=== PATIENT | male | born 1955 | race Two or more races ===

== ENCOUNTER 2025-04-01 15:44 | Inpatient (IN) | payer MEDICAID, SELFPAY ==
[2025-04-01] VITALS (10 sets, daily range): BP systolic 117–157; BP diastolic 67–85; PULSE 70–84; RESP 14–30; TEMP 36.5–37; O2SAT 85–99
--- NOTE | 2025-04-01 16:00 | PC.NURSE ---
Pt BIBA [facility] due to lethargy and shortness of breath. SVR stated that after dialysis today pt started complaining of SOB and was lethargic. Pt told me that he did not sleep last night due to the bed being uncomfortable and that he has back pain because of that as well. Pt is 94% on RA but drops to high 80s while asleep, so he has been placed on 2 L NC (does not use O2 otherwise)
--- NOTE | 2025-04-01 16:54 | PD.EDSOB ---
ED SOB =RME/HPI General Chief Complaint: Shortness of Breath/Dyspnea Stated Complaint: SOB Arrival date/time: 04/01/25 15:44 Limitations: no limitations RME / HPI RME / HPI Narrative: 69 year old male presents to the ED BIBA from home for evaluation of shortness of breath after completing his dialysis today. Additionally complains of pain to his back. No other associated symptoms reported. Denies fevers, chills, chest pain, cough, abdominal pain, n/v/d. Related Data Home Medications ?Medication ?Instructions ?Recorded ?Confirmed acetaminophen 500 mg tablet 500 mg PO Q6H PRN fever or pain 04/01/25 04/02/25 apixaban 5 mg tablet (Eliquis) 5 mg PO BID atrial fibrilation 04/01/25 04/02/25 atorvastatin 20 mg tablet 20 mg PO .qHS hyperlipidemia 04/01/25 04/02/25 calcium acetate(phosphat bind) 667 667 mg PO BID 04/01/25 04/02/25 mg capsule carvedilol 6.25 mg tablet 6.25 mg PO Q12H Hypertension 04/01/25 04/02/25 cyclobenzaprine 10 mg tablet 10 mg PO Q8H PRN muscle spasm 04/01/25 04/02/25 diclofenac sodium 1 % topical gel 2.25 inch topical Q8H PRN pain 04/01/25 04/02/25 gabapentin 300 mg capsule 300 mg PO BID Neuropathy 04/01/25 04/02/25 ropinirole 0.5 mg tablet 0.5 mg PO QDAY restless leg 04/01/25 04/02/25 syndrome sevelamer carbonate 800 mg tablet 800 mg PO TIDWMEAL Phosporus Binder 04/01/25 04/02/25 sodium bicarbonate 650 mg tablet 650 mg PO BID GERD 04/01/25 04/02/25 amiodarone 200 mg tablet 200 mg PO BID atrial fibrilation 04/02/25 04/02/25 clonazepam 2 mg tablet (Klonopin) 2 mg PO Q8H PRN Axiety 04/02/25 04/02/25 diltiazem HCl 30 mg tablet 30 mg PO Q6H Hypertension 04/02/25 04/02/25 (Cardizem) escitalopram oxalate 10 mg tablet 10 mg PO QDAY Agitation 04/02/25 04/02/25 (Lexapro) lisinopril 5 mg tablet 5 mg PO QDAY Hypertension 04/02/25 04/02/25 rifampin 300 mg capsule 300 mg PO BID bacteremia 04/02/25 04/02/25 Allergies Allergy/AdvReac Type Severity Reaction Status Date / Time ketorolac Allergy Verified 04/01/25 16:17 Review of Systems Review of Systems Systems Reviewed: All systems reviewed, normal except as documented Past Medical History Past Medical History CARDIAC: Positive Cardiac Disorders, Atrial Fibrillation (Paroxysmal), Congestive Heart Failure and Hypertension GENITOURINARY: Positive Chronic Kidney Disease, Renal Disease and Dialysis ED Exam General Limitations: Present no limitations General appearance: Present alert and in no apparent distress Head Head exam: Present atraumatic Eye Eye exam: Present normal appearance, PERRL and EOMI ENT ENT exam: Present normal exam, normal oropharynx and mucous membranes moist Neck Neck exam: Present normal inspection, full ROM and trachea midline Chest Chest inspection: Present symmetric chest wall rise and other (dialysis catheter right upper chest that appears recent, has ecchymosis around it) Respiratory Respiratory exam: Present normal lung sounds bilaterally Cardiovascular Cardiovascular exam: Present regular rate, normal rhythm and normal heart sounds Abdominal Exam Abdominal exam: Present soft and normal bowel sounds Extremities Exam Extremities exam: Present other (Left upper extremity contracture, hypertrophic nails) Back Exam Back exam: Present normal inspection and full ROM Neurological Exam Neurological exam: Present alert, oriented X3 and CN II-XII intact Psychiatric Psychiatric exam: Present normal affect and normal mood Skin Skin exam: Present warm, dry, intact and normal color Course Quality Measures none Orders Category Date Time Status Admit to Inpatient Status Routine Admission 04/01/25 23:09 Active Patient Condition Routine Admission 04/01/25 23:09 Ordered Furnace Builder NOW Care 04/01/25 17:36 Active Continuous Pulse Oximetry NOW Care 04/01/25 17:36 Completed EKG (ED ONLY) *Do not use* NOW Care 04/01/25 17:36 Completed Flu & Pneumonia Vaccine Screen ONCE Care 04/01/25 23:08 Active Insert IV NOW Care 04/01/25 17:36 Active NPO NOW Care 04/01/25 23:11 Active Notify provider NEEDED Care 04/01/25 23:09 Active Sequential Compression Device QSHIFT Care 04/01/25 23:[address] chest wo con Stat Exams 04/01/25 21:[address] head/brain wo con Stat Exams 04/01/25 20:37 Completed EKG (ED Only) Stat Exams 04/01/25 17:36 Draft XR chest 1V portable Stat Exams 04/01/25 17:36 Completed ABG [Arterial Blood Gas] Stat Lab 04/01/25 23:33 Completed Alcohol, Urine Routine Lab 04/01/25 22:36 Ordered BNP [B-Type Natriuretic Peptide] Stat Lab 04/01/25 18:20 Completed CBC AM DRAW Lab 04/02/25 05:20 Completed CBC AM DRAW Lab 04/03/25 05:12 Completed CBC AM DRAW Lab 04/04/25 05:57 Completed CBC Stat Lab 04/01/25 18:20 Completed Comprehensive Metabolic Panel AM DRAW Lab 04/02/25 05:20 Completed Comprehensive Metabolic Panel AM DRAW Lab 04/03/25 05:12 Completed Comprehensive Metabolic Panel AM DRAW Lab 04/04/25 05:57 Completed Comprehensive Metabolic Panel Stat Lab 04/01/25 18:20 Completed Drug Screen,Urine Routine Lab 04/01/25 22:36 Ordered Lipid Panel AM DRAW Lab 04/02/25 05:20 Completed Magnesium AM DRAW Lab 04/02/25 05:20 Completed Partial Thromboplastin Time Stat Lab 04/01/25 18:20 Completed Phosphorous AM DRAW Lab 04/02/25 05:20 Completed Prothrombin Time with INR Stat Lab 04/01/25 18:20 Completed Troponin I Stat Lab 04/01/25 18:20 Completed Venous Blood Gas Stat Lab 04/01/25 18:20 Completed ALBUTEROL RT 3ml [Proventil Rt 3ml] Med 04/01/25 17:37 Discontinued 2.5 mg INH X1 ONE Acetaminophen Tab [Tylenol Tab] Med 04/01/25 23:08 Discontinued 1,000 mg PO Q6H PRN Azithromycin Inj [Zithromax Inj] 500 mg Med 04/01/25 20:24 Discontinued Sodium Chloride 0.9% 250 ml [Ns] 250 ml IV X1 Famotidine Inj [Pepcid Inj] Med 04/01/25 17:37 Discontinued 20 mg IVP X1 ONE HYDROcodone*/APAP 5/325 [[place] 5/325] Med 04/01/25 21:27 Discontinued 1 tab PO X1 ONE Morphine* Inj Med 04/01/25 17:37 Discontinued 4 mg IVP X1 ONE Ondansetron Inj [Zofran Inj] Med 04/01/25 23:08 Active 4 mg IVP Q6H PRN Ondansetron Inj [Zofran Inj] Med 04/01/25 17:37 Discontinued 4 mg IVP X1 ONE Sodium Chloride 0.9% 1000 ml [Ns] 1,000 ml Med 04/01/25 17:36 Discontinued IV 50 mls/hr cefTRIAXone/D5w 1gm IV premix [Rocephin/D5w 1gm IV Med 04/01/25 20:24 Discontinued premix] 1 gm in 50 ml IV X1 Code Status Routine Oth 04/01/25 23:08 Ordered Oxygen Delivery NOW RT 04/01/25 17:36 Completed Vital Signs Vital signs: Vital Signs Temperature 97.8 F 04/01/25 15:45 Shortness of Breath / Dyspnea MDM Narrative MDM Narrative:: Jacquelyn Hawthorne am scribing for and in the presence of Dr. Lam. 1800: Patient signed out to Dr. Ordoñez pending work up and final disposition. Patient data External records reviewed:: EMS form Clinical information provided by:: patient and EMS Social determinants that could affect healthcare access:: none Patient has the following chronic illnesses:: ESRD on HD, HTN, AFIB, CHF How is presenting disease/condition affected by chronic disease/condition?: exacerbated by Evaluation data The following diagnostics were reviewed and interpreted by me:: lab results and radiology exam(s) Lab and/or radiology exams considered but not ordered:: None Interpretation Summary: Ordering Physician: Jose Lam MD Date of Service: 04/01/25 Procedure(s): XR chest 1V portable Accession Number(s): [id number] cc: Jose Lam MD; Adolph Mcrae MD; NO PRIMARY/FAMILY,PHYSICIAN~ EXAMINATION: AP chest single view TECHNIQUE: AP portable upright chest single view Date and time: April 01, 2025, 1750 hours INDICATIONS: Cough and chest pain shortness of breath today. FINDINGS: Extensive right lung pneumonia Mild associated heart failure with enlarged cardiac contour and pulmonary vascular congestion Right internal jugular dialysis catheter tip right atrium IMPRESSION: Extensive right lung pneumonia Mild associated heart failure Dictated By: Adolph Mcrae MD Signed By: <Electronically signed by Adolph Mcrae MD in OV> 04/01/25 1851 Medications / Prescriptions Medications or Prescriptions considered but not ordered:: None Medication administrations:: Medication Administration History Acetaminophen (Acetaminophen 500 Mg Tablet) 1,000 mg PO Q6H PRN PRN Reason: Fever >100.3, pain 1-3 Stop: 05/01/25 23:07 Hydrocodone Bitart/Acetaminophen (Hydrocodone/Apap 5/325 Tablet) 1 tab PO Q6HR PRN PRN Reason: Pain 4-8 Stop: 04/07/25 19:34 Last Admin: 04/04/25 12:52 Dose: 1 tab Documented By: Admin: 04/04/25 05:38 Dose: 1 tab Documented By: Admin: 04/03/25 20:06 Dose: 1 tab Documented By: Admin: 04/03/25 08:55 Dose: 1 tab Documented By: Admin: 04/03/25 02:24 Dose: 1 tab Documented By: Admin: 04/02/25 20:24 Dose: 1 tab Documented By: MERARI Albuterol/Ipratropium (Albuterol/Ipratropium (Duoneb) Rt Bianka 3 Ml Nebu) 3 ml INH Q4HRRT REEMA Stop: 05/03/25 17:56 Last Admin: 04/04/25 14:51 Dose: 3 ml Documented By: Admin: 04/04/25 10:22 Dose: Not Given Documented By: MARLENY Non-Admin Reason: Not In Room Admin: 04/04/25 06:45 Dose: 3 ml Documented By: Admin: 04/04/25 02:46 Dose: 3 ml Documented By: Admin: 04/04/25 00:37 Dose: 3 ml Documented By: Admin: 04/03/25 18:08 Dose: Not Given Documented By: EMR Non-Admin Reason: Duplicate Medication on eMAR Admin: 04/03/25 18:07 Dose: 3 ml Documented By: VALE Amiodarone HCl (Amiodarone Hcl 200 Mg Tablet) 200 mg PO BID REEMA Stop: 05/02/25 08:59 Last Admin: 04/04/25 12:53 Dose: 200 mg Documented By: Admin: 04/03/25 20:15 Dose: 200 mg Documented By: Admin: 04/03/25 08:56 Dose: 200 mg Documented By: Admin: 04/02/25 20:24 Dose: 200 mg Documented By: Admin: 04/02/25 08:47 Dose: 200 mg Documented By: DENNY Apixaban (Apixaban 2.5 Mg Tablet) 5 mg PO DAILY REEMA Stop: 05/02/25 08:59 Last Admin: 04/04/25 12:52 Dose: 5 mg Documented By: FÉLIX Comments: pt at dialysis Admin: 04/03/25 08:57 Dose: 5 mg Documented By: Admin: 04/02/25 08:48 Dose: 5 mg Documented By: DENNY Atorvastatin Calcium (Atorvastatin Calcium 20 Mg Tablet) 20 mg PO HS REEMA Stop: 05/02/25 20:59 Last Admin: 04/03/25 20:05 Dose: 20 mg Documented By: Admin: 04/02/25 20:24 Dose: 20 mg Documented By: MERARI Carvedilol (Carvedilol 3.125 Mg Tablet) 6.25 mg PO BIDWM REEMA Stop: 05/02/25 08:59 Last Admin: 04/04/25 14:11 Dose: Not Given Documented By: FÉLIX Non-Admin Reason: pt in dialysis, x1 order pending Diltiazem HCl (Diltiazem 30 Mg Tablet) 30 mg PO Q6H REEMA Stop: 05/04/25 15:14 Last Admin: 04/04/25 15:20 Dose: 30 mg Documented By: FÉLIX Escitalopram Oxalate (Escitalopram Oxalate 10 Mg Tablet) 10 mg PO QDAY REEMA Stop: 05/02/25 08:59 Last Admin: 04/04/25 12:54 Dose: 10 mg Documented By: Admin: 04/03/25 08:57 Dose: 10 mg Documented By: Admin: 04/02/25 08:48 Dose: 10 mg Documented By: DENNY Heparin Sodium (Porcine) (Heparin Sod Inj 1000 Unit/Ml Vial 10 Ml) 4,300 unit INDWELLCAT X1 PRN PRN Reason: DIALYSIS Stop: 04/18/25 11:57 Last Admin: 04/04/25 12:00 Dose: 4,300 unit Documented By: RAYMUNDO Co-signed By: VIVIAN Hydralazine HCl (Hydralazine Inj 20 Mg/Ml Vial) 10 mg IVP Q6H PRN PRN Reason: hypertention Stop: 05/04/25 15:14 Hydroxyzine HCl (Hydroxyzine Hcl 25 Mg Tablet) 25 mg PO Q6HR PRN PRN Reason: ANXIETY Stop: 05/02/25 10:09 Last Admin: 04/04/25 04:53 Dose: 25 mg Documented By: Admin: 04/03/25 17:24 Dose: 25 mg Documented By: Admin: 04/03/25 07:02 Dose: 25 mg Documented By: Admin: 04/02/25 19:24 Dose: 25 mg Documented By: Admin: 04/02/25 11:01 Dose: 25 mg Documented By: DENNY Azithromycin 500 mg/ Sodium (Chloride) 250 mls @ 250 mls/hr IV QDAY [facility] Stop: 04/09/25 08:59 Last Admin: 04/04/25 12:54 Dose: 250 mls/hr Documented By: Infusion: 04/03/25 09:57 Dose: Infused Documented By: Admin: 04/03/25 08:57 Dose: 250 mls/hr Documented By: Infusion: 04/02/25 15:00 Dose: Infused Documented By: Admin: 04/02/25 14:00 Dose: 250 mls/hr Documented By: DENNY Ceftriaxone Sodium/Dextrose (Rocephin/D5w 1gm Iv Premix) 1 gm in 50 mls @ 100 mls/hr IV QDAY [facility] Stop: 04/09/25 08:59 Last Admin: 04/04/25 12:49 Dose: 100 mls/hr Documented By: Infusion: 04/03/25 09:27 Dose: Infused Documented By: Admin: 04/03/25 08:57 Dose: 100 mls/hr Documented By: Infusion: 04/02/25 09:19 Dose: Infused Documented By: Admin: 04/02/25 08:49 Dose: 100 mls/hr Documented By: DENNY Lisinopril (Lisinopril 2.5 Mg Tablet) 5 mg PO QDAY [facility] Stop: 05/05/25 08:59 Ondansetron HCl (Ondansetron Inj 2 Mg/Ml Inj 2 Ml) 4 mg IVP Q6H PRN; Protocol PRN Reason: NAUSEA OR VOMITING Stop: 05/01/25 23:07 Rifampin (Rifampin 300 Mg Capsule) 300 mg PO BID [facility] Stop: 05/02/25 08:59 Last Admin: 04/04/25 12:52 Dose: 300 mg Documented By: Admin: 04/03/25 20:05 Dose: 300 mg Documented By: Admin: 04/03/25 08:55 Dose: 300 mg Documented By: Admin: 04/02/25 20:25 Dose: 300 mg Documented By: Admin: 04/02/25 08:47 Dose: 300 mg Documented By: DENNY Discontinued Medications Acetaminophen (Acetaminophen 325 Mg Tablet) 1,000 mg PO Q6H PRN PRN Reason: Fever >99.9 Stop: 05/01/25 23:07 Acetaminophen (Acetaminophen 325 Mg Tablet) 1,000 mg PO Q6H PRN PRN Reason: Fever >100.3, pain 1-3 Stop: 05/01/25 23:07 Hydrocodone Bitart/Acetaminophen (Hydrocodone/Apap 5/325 Tablet) 1 tab PO X1 ONE Stop: 04/01/25 21:28 Last Admin: 04/01/25 21:36 Dose: 1 tab Documented By: SAUL Albuterol (Albuterol Rt 2.5 Mg/3 Ml Nebu) 2.5 mg INH X1 ONE Stop: 04/01/25 17:38 Last Admin: 04/01/25 19:15 Dose: 2.5 mg Documented By: JAQUELIN Albuterol/Ipratropium (Albuterol/Ipratropium (Duoneb) Rt Bianka 3 Ml Nebu) 3 ml INH Q4HRRT [facility] Stop: 05/03/25 18:59 Carvedilol (Carvedilol 3.125 Mg Tablet) 6.25 mg PO BID [facility] Stop: 05/02/25 08:59 Last Admin: 04/03/25 20:06 Dose: 6.25 mg Documented By: Admin: 04/03/25 08:55 Dose: 6.25 mg Documented By: Admin: 04/02/25 20:24 Dose: 6.25 mg Documented By: Admin: 04/02/25 08:48 Dose: 6.25 mg Documented By: DENNY Carvedilol (Carvedilol 3.125 Mg Tablet) 6.25 mg PO X1 ONE Stop: 04/04/25 14:03 Last Admin: 04/04/25 15:15 Dose: 6.25 mg Documented By: FÉLIX Epoetin Ravi (Epoetin Ravi-Epbx Inj 10,000 Unit/Ml Vial (Esrd)) 10,000 unit SC X1 ONE Stop: 04/04/25 11:16 Last Admin: 04/04/25 11:03 Dose: 10,000 unit Documented By: MM Famotidine (Famotidine Inj 10 Mg/Ml Vial 2 Ml) 20 mg IVP X1 ONE Stop: 04/01/25 17:38 Last Admin: 04/01/25 18:30 Dose: 20 mg Documented By: CS Sodium Chloride (Ns) 1,000 mls @ 50 mls/hr IV .Q20H ONE Stop: 04/02/25 13:35 Last Admin: 04/01/25 18:32 Dose: 50 mls/hr Documented By: CS Ceftriaxone Sodium/Dextrose (Rocephin/D5w 1gm Iv Premix) 1 gm in 50 mls @ 100 mls/hr IV X1 ONE Stop: 04/01/25 20:53 Last Infusion: 04/01/25 21:17 Dose: Infused Documented By: Admin: 04/01/25 20:47 Dose: 100 mls/hr Documented By: DT Azithromycin 500 mg/ Sodium (Chloride) 250 mls @ 250 mls/hr IV X1 ONE Stop: 04/01/25 21:23 Last Infusion: 04/01/25 22:38 Dose: Infused Documented By: Admin: 04/01/25 21:38 Dose: 250 mls/hr Documented By: DT Lorazepam (Lorazepam 0.5 Mg Tablet) 0.5 mg PO X1 ONE Stop: 04/04/25 10:22 Last Admin: 04/04/25 10:26 Dose: 0.5 mg Documented By: RAYMUNDO Morphine Sulfate (Morphine Sulf Inj 4 Mg/Ml Vial) 4 mg IVP X1 ONE Stop: 04/01/25 17:38 Last Admin: 04/01/25 18:31 Dose: 4 mg Documented By: KAYLA Ondansetron HCl (Ondansetron Inj 2 Mg/Ml Inj 2 Ml) 4 mg IVP X1 ONE; Protocol Stop: 04/01/25 17:38 Last Admin: 04/01/25 18:31 Dose: 4 mg Documented By: KAYLA Sevelamer Carbonate (Sevelamer Carbonate 800 Mg Tablet) 800 mg PO TIDWM REEMA Stop: 05/02/25 07:59 See above Consultations Consultation(s) initiated? (list below): No Diagnosis Shortness of Breath Differential Diagnosis: acute exacerbation of chronic obstructive airways disease, congestive heart failure, community acquired pneumonia and asthma with exacerbation Most likely diagnosis given after review of the tests above:: Shortness of breath Admission Indicated Admission indicated?: not indicated Admission Request Was there a request for admission?: No Disposition Plan Disposition Plan: other (specify) (Signed out pending final dispo) Discharge Plan Plan Patient Disposition: Admit Acute Care w/in Hospital Problem List Clinical Impression: Community acquired pneumonia
--- NOTE | 2025-04-01 16:55 | PC.NURSE ---
dr. granados in to see pt
--- NOTE | 2025-04-01 17:36 | XR_ITS ---
EXAMINATION: AP chest single view TECHNIQUE: AP portable upright chest single view Date and time: April 01, 2025, 1750 hours INDICATIONS: Cough and chest pain shortness of breath today. FINDINGS: Extensive right lung pneumonia Mild associated heart failure with enlarged cardiac contour and pulmonary vascular congestion Right internal jugular dialysis catheter tip right atrium IMPRESSION: Extensive right lung pneumonia Mild associated heart failure
--- NOTE | 2025-04-01 17:36 | EKG_ITS ---
[facility] Test Date: 2025-04-01 Pat Name: ARI NAVARRO Department: Room: - Gender: Male Manager Ethics: : 1955 Requested By: Jose Mark Order Number: [id number] Reading MD: Jose Mark Measurements Intervals [place] Rate: 69 P: 87 [place]: 164 QRS: 74 QRSD: 89 T: 79 QT: 451 QTc: 484 Interpretive Statements SINUS RHYTHM PROLONGED QT INTERVAL No previous ECG available for comparison /store/S0/[id number]/ecg/[id number].pdf
--- NOTE | 2025-04-01 18:17 | EDNOTE_ITS ---
Emergency Room Addendum Addendum Narrative: 1800: Care assumed from Dr. Lam (emergency physician). Past medical, surgical, social and family history reviewed. Vitals and home medications reviewed. Results and treatment plan discussed. I will assume the care of the patient at this time and will follow the patient, pending labs. The following addendum documentation note is intended to reflect any pending information, findings, or radiology results not included in the patient?s initial chart by the previous shift scribe. RADIOLOGY Chest X-Ray: FINDINGS: Extensive right lung pneumonia Mild associated heart failure with enlarged cardiac contour and pulmonary vascular congestion Right internal jugular dialysis catheter tip right atrium IMPRESSION: Extensive right lung pneumonia Mild associated heart failure 20:34 - Assumed care of this debilitated patient with Hx of A Fib, CHF, and HTN referred from dialysis due to shortness of breath after completion of dialysis earlier today. Denies any recent productive cough, fever, or chills. O2 saturation normal on room air, although patient found to desaturate when sle eping suggesting possible NBA. CXR demonstrates extensive right sided PNA, for which he was treated with dual ABX. No signs of sepsis. Will contact hospitalist for possible admission. Final diagnoses include pneumonia, hypoxia, ? NBA. 20:53 - Discussed with resident physician for admission. Reviewed the patient?s HPI, PMHx, lab and/or radiology results. Discussed treatment plan. Will consult an admission to the hospitalist.
[2025-04-01 18:30] LABS: Base Excess, Venous 9 (-3-3); O2 Saturation, Venous 56 % (96-97); PCO2, Venous 48 mmHg (36-56); PO2, Venous 28 mmHg (15-58); pH, Venous 7.46 (7.33-7.66)
[2025-04-01] MEDS: FAMOTIDINE INJ 10 MG/ML VIAL 2 ML 20 MG IVP (18:30)
[2025-04-01 18:31] LABS: Basophils # (Auto) 0.1 Thou/mm3 (0.0-0.2); Basophils % (Auto) 1 % (0-2.5); Eosinophils # (Auto) 0.3 Thou/mm3 (0.0-0.5); Eosinophils % (Auto) 5 % (0-10); Hematocrit 28.2 % (41.0-53.0); Hemoglobin 9.1 g/dL (13.5-16.0); Immature Granulocytes Auto 0.03 Thou/mm3 (0.00-0.00); Lymphocytes # (Auto) 1.0 Thou/mm3 (1.0-4.8); Lymphocytes % (Auto) 17 % (10-50); Mean Corpuscular HGB Conc 32.3 g/dl (31.0-37.0); Mean Corpuscular Hemoglobin 33.0 pg (25.0-35.0); Mean Corpuscular Volume 102 fL (80-100); Monocytes # (Auto) 0.7 Thou/mm3 (0.0-0.8); Monocytes % (Auto) 13 % (0-12); Neutrophils # (Auto) 3.8 Thou/mm3 (1.8-7.7); Neutrophils % (Auto) 65 % (37-80); Nucleated Red Blood Cell # 0.00 Thou/mm3 (0.00-0.00); Nucleated Red Blood Cell % 0 /100 WBC (0); Platelet Count 141 Thou/mm3 (140-440); RDW Standard Deviation 61.1 fL (35.1-43.9); Red Blood Count 2.76 Miln/mm3 (4.50-5.90); White Blood Count 5.8 Thou/mm3 (3.8-10.6)
[2025-04-01] MEDS: ONDANSETRON INJ 2 MG/ML INJ 2 ML 4 MG IVP (18:31)
[2025-04-01] MEDS: MORPHINE SULF INJ 4 MG/ML VIAL IVP (18:31)
[2025-04-01] MEDS: SODIUM CHLORIDE 0.9% 1000 ML 1,000 ML 50 ML IV (18:32)
[2025-04-01 18:51] LABS: B-Type Natriuretic Peptide 432 pg/mL (0-100); INR 1.2 (0.9-1.3); Partial Thromboplastin Time 31.9 Seconds (22.0-36.0); Prothrombin Time 12.4 Seconds (9.0-12.2)
[2025-04-01 19:04] LABS: Alanine Aminotransferase < 7 U/L (10-49); Albumin, Serum 3.4 gm/dL (3.4-4.8); Albumin/Globulin Ratio 1.1 (1.2-2.2); Alkaline Phosphatase 57 U/L (46-116); Anion Gap 12 (7-16); Aspartate Amino Transferase 39 U/L (0-34); BUN/Creatinine Ratio 6 Ratio (12-20); Bilirubin,Total 0.4 mg/dL (0.3-1.2); Blood Urea Nitrogen 21 mg/dL (9-23); Calcium 8.0 mg/dL (8.3-10.6); Calcium (Corrected) 8.5 mg/dL (8.5-10.1); Carbon Dioxide 31.2 mMol/L (20.0-31.0); Chloride 96 mMol/L (98-107); Creatinine (Component) 3.8 mg/dL (0.6-1.3); Globulin 3.2 gm/dL (2.3-3.5); Glucose 86 mg/dL (74-106); Osmolality,Calculated 279 (275-295); Potassium 3.6 mMol/L (3.4-5.1); Sodium 139 mMol/L (136-145); Total Protein 6.6 gm/dL (5.7-8.2); Troponin I 0.028 ng/mL (0.0-0.045); eGFR 16 See Note
[2025-04-01] MEDS: ALBUTEROL RT 2.5 MG/3 ML NEBU INH (19:15)
--- NOTE | 2025-04-01 19:30 | PC.NURSE ---
THIS RN NOTIFIED PROVIDER YASSINE PT LETHARGIC WITH A FINGER GLUCOSE OF 83. PER PROVIDER I WILL GO IN AND ASSESS HIM. . NO ORDERS RECIEVED.
--- NOTE | 2025-04-01 20:24 | PC.NURSE ---
THIS RN VERIFIED WITH PROVIDER PRIOR TO STARTING IV ANTIBIOTICS IF PATIENT REQ BLOOD CULTURES. PER PROVIDER NO HE DOES NOT. PATIENT IS NOT SEPTIC WE DO NOT NEED CULTURES. .
--- NOTE | 2025-04-01 20:37 | XR_ITS ---
Examination: CT brain head without contrast. 2-D sagittal coronal reconstructions Date and time of exam: April 01, 2025, 2100 hours INDICATIONS: Altered mental status today CTDI: vol (mGy): 51.6 DLP: (mGycm): 1106 Technique: Multiple CT axial sections of the brain have been obtained, 5 mm slice thickness. Contrast has not been administered. 2-D sagittal, coronal reconstructions have been obtained Low dose protocols were performed. One or more of the following dose reduction techniques were used; automated exposure control, adjustment of the mA and/or KV according to patient size, use of iterative reconstruction technique. Findings: No significant ventricular enlargement. Intra-axial or extra-axial hemorrhage density is not seen. No mass effect or midline shift Basal cisterns are not remarkable. Fourth ventricle is midline. Cranial vault intact. Impression: Negative for acute hemorrhage, mass effect or midline shift If symptoms persist, consider brain MRI without contrast follow-up
[2025-04-01] MEDS: cefTRIAXone/D5w 1gm IV premix 1 GM/50 ML BAG IV (20:47)
--- NOTE | 2025-04-01 21:28 | XR_ITS ---
Examination: CT chest, without intravenous contrast. Sagittal and coronal 2-D reconstructions. Exam date and time: April 01, 2025, 9:48 p.m. INDICATIONS: Cough and congestion today CTDI:vol (mGy) 19.5 DLP: (mGycm) 846 Technique: Multiple 3.0 mm axial sections of the chest to been obtained. Bone and lung density settings are obtained. Sagittal and coronal 2-D reconstructions have been obtained. Low dose protocols were performed. One or more of the following dose reduction techniques were used; automated exposure control, adjustment of the mA and/or KV according to patient size, use of iterative reconstruction technique. Findings: Thoracic aortic calcification no aneurysmal dilatation Moderate enlargement cardiac contour with heavy left anterior descending coronary artery calcification Prominent vascular congestion dense opacity in the right upper lobe most consistent with pneumonia Moderate right mild left pleural fluid Significant pneumonia right base Distended gallbladder with gallbladder sludge versus small stones No pancreatic mass Liver lesion Bilateral small renal calcifications which may be arterial IMPRESSION: Dense opacity in the right upper lobe most consistent with pneumonic consolidation Right base pneumonia Mild heart failure Recommended by the biliary sonography to assess distended gallbladder and confirmed gallstones
[2025-04-01] MEDS: HYDROcodone/APAP 5/325 TABLET 1 TAB PO (21:36)
[2025-04-01] MEDS: AZITHROMYCIN INJ 500 MG in SODIUM CHLORIDE 0.9% 250 ML 250 ML 250 MG IV (21:38)
--- NOTE | 2025-04-01 23:33 | ESHP_ITS ---
Documentation for date of: 04/01/25 HPI History of Present Illness History of present illness: HPI: 69-year-old male with a past medical history of A-fib, CHF, hypertension, ESRD on dialysis, chronic back pain, and a previous stroke 5 years ago presented today from [facility] with altered mental status. Per the patient's caregiver, he was lethargic after returning from dialysis on 04/01/2025. He desaturated to 83% oxygen on room air at which time the caregiver at the rehab center put him on supplemental oxygen and his saturation improved to 93. Per the caregiver his baseline mental status is alert and oriented x 3 and the patient is able to take his medications by himself, but he needed help on the day of admission. The patient was admitted to [facility] approximately 2 weeks ago for acute hypoxic respiratory failure secondary to pneumonia. Of note, the patient is on a course of rifampin for bacteremia per the rehab center until 05/11/2025. The patient was admitted for altered mental status. ED course: * Vitals on arrival: BP 117/60, pulse 71, respiratory rate 18, temp 97.8, saturating at 97% on 1.5 L nasal cannula. * Notable labs: Hemoglobin 9.1, hematocrit 28.2, MCV 102, creatinine 3.8, BNP 432. ABG showed a pH of 7.41, pCO2 of 50, pO2 94, HCO3 of 31. * Imaging: Chest x-ray showed extensive right lung pneumonia, mild associated heart failure. EKG shows sinus rhythm with a rate of 69. Head CT negative. Chest CT showed dense opacity in the right upper lobe most consistent with pneumonic consolidation, there is a right base pneumonia, mild heart failure. * In the ED, the patient was placed on supplemental oxygen and given a dose of azithromycin, hydrocodone, morphine, ceftriaxone, and albuterol treatment, and started on a sodium chloride drip at 50 mL/h. History: * Past medical history: A-fib, CHF, hypertension, ESRD on dialysis, chronic back pain, previous stroke. * Surgical history: Denies * Family history: Denies * Social history: Previous 5-pack-year smoking history quit 5 years ago, social alcohol drinker, denies illicit drug use. * Allergies: Toradol. * Home medications: Amiodarone 200 mg p.o. twice daily, atorvastatin 20 mg at bedtime, calcium acetate 667 mg twice daily, carvedilol 6.25 mg twice daily, clonazepam 2 mg Q8 as needed, cyclobenzaprine 10 mg Q8 as needed, diclofenac 1% as needed topical, diltiazem 30 mg Q6, Dulcolax 10 mg every 72 hours as needed, Eliquis 5 mg twice daily, gabapentin 300 mg twice daily, hydrocodone acetaminophen 5-3 25 every 6 as needed, Lexapro 10 mg daily, lisinopril 5 mg daily, Milk of Magnesia every 72 hours as needed, multivitamin, rifampin 300 mg twice daily, ropinirole 0.5 mg daily, senna, sevelamer 800 mg with meals, sodium bicarb tablet 650 mg twice daily. Review of Systems Review of Systems Narrative Review of Systems: Review of Systems: * General: Denies fevers, chills. * HEENT: Denies headache, congestion, or sore throat. * Cardiac: Denies chest pain or palpitations. * Pulmonary: Denies shortness of breath or cough. * GI: Denies nausea, vomiting, diarrhea, constipation, melena, or hematochezia. * : Denies dysuria, hematuria, frequency, or urgency. * MSK: Denies pain in the extremities, joints, or myalgias. * Neuro: Denies weakness, numbness, vision changes, or speech difficulty. Exam Vital Signs Temp Pulse Resp BP Pulse Ox O2 Del Method O2 Flow Rate 97.7 F 75 19 120/73 99 Nasal Cannula 3 04/01/25 22:04 04/01/25 22:04 04/01/25 22:04 04/01/25 22:04 04/01/25 22:04 04/01/25 22:04 04/01/25 22:04 Narrative Exam General: Awake and in no acute distress. Does not remember how he got to the hospital. Neurologic: GCS 14, confused. Alert and oriented x3, no gross neurological deficit, and patient able to move all 4 extremities. HEENT: Normocephalic, atraumatic, mucous membranes moist. Pupils reactive to light. Extraocular eye movements intact. Pupils dilated approximately 4 mm. Heart: Regular rate and rhythm, normal S1 and S2, no murmurs. Lungs: Decreased breath sounds in the bases bilaterally. Abdomen: Soft, nondistended, nontender, positive bowel sounds. No guarding or rebound tenderness. Extremities: Right subclavian dialysis cath. No edema. 2+ radial and dorsalis pedis pulses bilaterally. 5 out of 5 strength in the upper and lower extremities bilaterally. Skin: Warm. Dry. No rash or ecchymoses. Results: Labs 04/02/25 05:20 04/02/25 05:20 Labs: Short CBC 04/01/25 Range/Units 18:20 WBC 5.8 (3.8-10.6) Thou/mm3 Hgb 9.1 L (13.5-16.0) g/dL Hct 28.2 L (41.0-53.0) % Plt Count 141 (140-440) Thou/mm3 BMP 04/01/25 18:20 Sodium 139 Potassium 3.6 Chloride 96 L Carbon Dioxide 31.2 H BUN 21 Creatinine 3.8 H Glucose 86 Calcium 8.0 L Cardiac Enzymes 04/01/25 Range/Units 18:20 Troponin I 0.028 (0.0-0.045) ng/mL Liver Function 04/01/25 Range/Units 18:20 Total Bilirubin 0.4 (0.3-1.2) mg/dL AST 39 H (0-34) U/L ALT < 7 L (10-49) U/L Alkaline Phosphatase 57 (46-116) U/L Albumin 3.4 (3.4-4.8) gm/dL ABG Interpretation ABG results: 04/01/25 18:20 VBG pH 7.46 VBG pCO2 48 VBG pO2 28 VBG Base Excess 9 H Quality Measures Quality Measures VTE prophylaxis Advance care planning discussed with:: patient Medications Home Medications and Allergies Home Medications ?Medication ?Instructions ?Recorded ?Confirmed ?Type acetaminophen 500 mg tablet 500 mg PO Q6H PRN fever or pain 04/01/25 04/02/25 History apixaban 5 mg tablet (Eliquis) 5 mg PO BID atrial fibr ilation 04/01/25 04/02/25 History atorvastatin 20 mg tablet 20 mg PO .qHS hyperlipidemia 04/01/25 04/02/25 History calcium acetate(phosphat bind) 667 667 mg PO BID 04/0104/02/25 History mg capsule carvedilol 6.25 mg tablet 6.25 mg PO Q12H Hypertension 04/01/25 04/02/25 History cyclobenzaprine 10 mg tablet 10 mg PO Q8H PRN muscle s pasm 04/01/25 04/02/25 History diclofenac sodium 1 % topical gel 2.25 inch topical Q8 H PRN pain 04/01/25 04/02/25 History gabapentin 300 mg capsule 300 mg PO BID Neuropathy 04/02/25 History hydrocodone 5 mg-acetaminophen 325 1 tab PO Q6H PRN pa in 04/01/25 04/02/25 History mg tablet ropinirole 0.5 mg tablet 0.5 mg PO QDAY restless leg 04/01/25 04/02/25 History syndrome sevelamer carbonate 800 mg tablet 800 mg PO TIDWMEAL P hosporus Binder 04/01/25 04/02/25 History sodium bicarbonate 650 mg tablet 650 mg PO BID GERD 04/02/25 History amiodarone 200 mg tablet 200 mg PO BID atrial fibrila tion 04/02/25 04/02/25 History clonazepam 2 mg tablet (Klonopin) 2 mg PO Q8H PRN Axie ty 04/02/25 04/02/25 History diltiazem HCl 30 mg tablet 30 mg PO Q6H Hypertension 1 04/02/25 History (Cardizem) escitalopram oxalate 10 mg tablet 10 mg PO QDAY Agitat ion 04/02/25 04/02/25 History (Lexapro) lisinopril 5 mg tablet 5 mg PO QDAY Hypertension 04/02/25 History rifampin 300 mg capsule 300 mg PO BID bacteremia 04/02/25 History Allergies Allergy/AdvReac Type Severity Reaction Status Date / Time ketorolac Allergy Verified 04/01/25 16:17 Visit Medications Acetaminophen (Acetaminophen 325 Mg Tablet) 1,000 mg PO Q6H PRN PRN Reason: Fever >99.9 Stop: 05/01/25 23:07 Sodium Chloride (Ns) 1,000 mls @ 50 mls/hr IV .Q20H ONE Stop: 04/02/25 13:35 Last Admin: 04/01/25 18:32 Dose: 50 mls/hr Ondansetron HCl (Ondansetron Inj 2 Mg/Ml Inj 2 Ml) 4 mg IVP Q6H PRN; Protocol PRN Reason: NAUSEA OR VOMITING Stop: 05/01/25 23:07 Discontinued Medications Hydrocodone Bitart/Acetaminophen (Hydrocodone/Apap 5/325 Tablet) 1 tab PO X1 ONE Stop: 04/01/25 21:28 Last Admin: 04/01/25 21:36 Dose: 1 tab Albuterol (Albuterol Rt 2.5 Mg/3 Ml Nebu) 2.5 mg INH X1 ONE Stop: 04/01/25 17:38 Last Admin: 04/01/25 19:15 Dose: 2.5 mg Famotidine (Famotidine Inj 10 Mg/Ml Vial 2 Ml) 20 mg IVP X1 ONE Stop: 04/01/25 17:38 Last Admin: 04/01/25 18:30 Dose: 20 mg Ceftriaxone Sodium/Dextrose (Rocephin/D5w 1gm Iv Premix) 1 gm in 50 mls @ 100 mls/hr IV X1 ONE Stop: 04/01/25 20:53 Last Infusion: 04/01/25 21:17 Dose: Infused Azithromycin 500 mg/ Sodium (Chloride) 250 mls @ 250 mls/hr IV X1 ONE Stop: 04/01/25 21:23 Last Infusion: 04/01/25 22:38 Dose: Infused Morphine Sulfate (Morphine Sulf Inj 4 Mg/Ml Vial) 4 mg IVP X1 ONE Stop: 04/01/25 17:38 Last Admin: 04/01/25 18:31 Dose: 4 mg Ondansetron HCl (Ondansetron Inj 2 Mg/Ml Inj 2 Ml) 4 mg IVP X1 ONE; Protocol Stop: 04/01/25 17:38 Last Admin: 04/01/25 18:31 Dose: 4 mg Assessment & Plan Plan Summary: 69-year-old male with a past medical history of A-fib, CHF, hypertension, ESRD on dialysis, chronic back pain, and a previous stroke 5 years ago presented today from [facility] with altered mental status. Patient was admitted for his altered mental status. #Acute Encephalopathy * Differentials include metabolic vs syncope vs hypotension vs seizure vs hypoxia * Per caregiver at acute rehab facility, the patient was lethargic on the day of admission and below his baseline mental status * ABG showed a pCO2 of 50 and a bicarb of 31, pH was 7.41 * Head CT negative * Ammonia negative * Per the rehab facility, the patient is being treated for bacteremia with rifampin Plan: * Titrate supplemental oxygen to a saturation of 97% * UTOX ordered * Neurology consulted #Acute hypoxic respiratory failure secondary to #Pneumonia #History of bacteremia? * Patient desatted to 83% at the care facility per staff, improved to 93% on supplemental oxygen * Patient satting at 99% on 3 L nasal cannula upon admission * Chest CT showed a dense opacity in the right upper lobe consistent with pneumonic consolidation, so showed right basilar pneumonia * Chest x-ray showed extensive right lung pneumonia * Per the rehab facility, the patient is being treated for bacteremia with rifampin, possibly he had CRBSI and continued on rifampin and presence of prosthetic (HD line) * Although currently afebrile without leukocytosis. Plan: * Rifampin 300 mg PO BID * Azithromycin 500 mg IV daily * Ceftriaxone 1 g IV daily * Blood cultures ordered * Titrate supplemental oxygen to a saturation of 97%. #Paroxysmal A-fib, rate controlled * Per patient chart review, he is also on ELIQUIS and multiple anti- arrhythmic/rate control agents. EKG showed sinus rhythm, rate controlled. Plan: * Continue home Eliquis * Continue home amiodarone * Continue home carvedilol #History of CHF * Per patient chart review, no baseline ECHO * BNP slightly elevated but not signs of exacerbation * Chest CT showed evidence of heart failure * Physical exam was negative for any peripheral edema or JVD Plan: * Fluid restriction #Hypertension * Per patient chart review * Patient takes diltiazem 30 mg every 6 hours for hypertension per chart review * Patient's blood pressure stable Plan: * Hold home diltiazem #Previous stroke * Per the patient, he had a stroke 5 years ago * Neuro exam was significant for approx 4 mm dilated pupils, which were ractive to light * CT negative Plan: * Neurology consulted #ESRD on dialysis * Patient went for dialysis on 04-01-2025, was lethargic on return Plan: * Consider restarting sevelamer 800 mg 3 times daily with meals and calcium acetate twice daily with meals * Nephrology consulted #Chronic back pain * Per patient chart review Plan: * Consider restarting home hydrocodone as needed #Anxiety * Per patient chart review and history Plan: * Continue home Lexapro 10 mg daily #Hyperlipidemia * Per patient chart review Plan: * Continue home atorvastatin 20 mg p.o. nightly #Restless leg syndrome * Per patient chart review Plan: * Holding home ropinirole Hospital Maintenance: DVT ppx: SCDs Diet: Regular diet IV lines: Peripheral IVs, right subclavian dialysis catheter Code status: Full code Dispo: Admitted for altered mental status, pending neurology and nephrology consults, treating community-acquired pneumonia, titrating oxygen, pending blood cultures. Patient was seen and discussed with my attending physician Dr. Yonathan SMITH. Emir Wilkins DO PGY-1. Attending Provider Attestation/Addendum After examination of the patient and review of the clinical data I feel that this patient needs admission to the hospital for further treatment/evaluation. Plan of care discussed with patient and is in agreement. I Stephania Mcmanus MD, attest that I was physically present for stack portions of evaluation, and examined patient, labs and imagings and plan of care were discussed with IM residents team, and I agree with the findings and plans documented above.
[2025-04-01 23:46] LABS: Allen Test Performed/OK; Base Excess 6 (-3-3); HCO3 31 mEq/L (20-26); Inspired Oxygen, FIO2 21 %; O2 Saturation 98 % (91-98); PCO2 50 mmHg (32.0-48.0); PO2 94 mmHg (83-108); Puncture Site Left Radial; pH, Arterial 7.41 (7.35-7.45)
[2025-04-02] VITALS (9 sets, daily range): BP systolic 96–131; BP diastolic 62–81; PULSE 73–84; RESP 18–22; TEMP 36.1–37.7; O2SAT 93–98; BMI 22.1
[2025-04-02 00:21] LABS: Ammonia < 10 uMol/L (11-32)
[2025-04-02 05:52] LABS: Basophils # (Auto) 0.1 Thou/mm3 (0.0-0.2); Basophils % (Auto) 1 % (0-2.5); Eosinophils # (Auto) 0.2 Thou/mm3 (0.0-0.5); Eosinophils % (Auto) 3 % (0-10); Hematocrit 33.0 % (41.0-53.0); Hemoglobin 10.2 g/dL (13.5-16.0); Immature Granulocytes Auto 0.04 Thou/mm3 (0.00-0.00); Lymphocytes # (Auto) 0.8 Thou/mm3 (1.0-4.8); Lymphocytes % (Auto) 12 % (10-50); Mean Corpuscular HGB Conc 30.9 g/dl (31.0-37.0); Mean Corpuscular Hemoglobin 33.4 pg (25.0-35.0); Mean Corpuscular Volume 108 fL (80-100); Monocytes # (Auto) 1.0 Thou/mm3 (0.0-0.8); Monocytes % (Auto) 15 % (0-12); Neutrophils # (Auto) 4.6 Thou/mm3 (1.8-7.7); Neutrophils % (Auto) 69 % (37-80); Nucleated Red Blood Cell # 0.00 Thou/mm3 (0.00-0.00); Nucleated Red Blood Cell % 0 /100 WBC (0); Platelet Count 136 Thou/mm3 (140-440); RDW Standard Deviation 65.3 fL (35.1-43.9); Red Blood Count 3.05 Miln/mm3 (4.50-5.90); White Blood Count 6.6 Thou/mm3 (3.8-10.6)
[2025-04-02 06:52] LABS: Alanine Aminotransferase < 7 U/L (10-49); Albumin, Serum 3.5 gm/dL (3.4-4.8); Albumin/Globulin Ratio 1.0 (1.2-2.2); Alkaline Phosphatase 60 U/L (46-116); Anion Gap 13 (7-16); Aspartate Amino Transferase 45 U/L (0-34); BUN/Creatinine Ratio 6 Ratio (12-20); Bilirubin,Total 0.4 mg/dL (0.3-1.2); Blood Urea Nitrogen 26 mg/dL (9-23); Calcium 7.7 mg/dL (8.3-10.6); Calcium (Corrected) 8.1 mg/dL (8.5-10.1); Carbon Dioxide 29.7 mMol/L (20.0-31.0); Cardiac Risk Estimate 6.5 RATIO (4.0-6.7); Chloride 97 mMol/L (98-107); Cholesterol 143 mg/dL (132-200); Creatinine (Component) 4.4 mg/dL (0.6-1.3); Estimated Creatinine Clearance 15.7 mL/min (>60); Globulin 3.5 gm/dL (2.3-3.5); Glucose 77 mg/dL (74-106); HDL Cholesterol 22 mg/dL (40-60); LDL Cholesterol,Calculated 95 mg/dL (0-130); Magnesium 2.1 mg/dL (1.6-2.6); Osmolality,Calculated 283 (275-295); Phosphorous 4.7 mg/dL (2.4-5.1); Potassium 4.1 mMol/L (3.4-5.1); Sodium 140 mMol/L (136-145); Total Protein 7.0 gm/dL (5.7-8.2); Triglycerides 130 mg/dL (30-150); eGFR 14 See Note
--- NOTE | 2025-04-02 07:59 | PD.NEPHCONS ---
History of Present Illness Data of Consult Consult date: 04/02/25 Requesting Physician: Stephania Mcmanus MD Primary Care Provider: Physician No Primary/Family Consult Narrative Reason for consult: ESRD History of present illness: Mr. Dwyer is a 69-year-old male with a past medical history of end-stage renal disease on hemodialysis, atrial fibrillation, congestive heart failure (EF ~40?55%), hypertension, prior stroke (5 years ago), chronic back pain, and recent bacteremia on rifampin, who presented from [facility] with altered mental status after returning from dialysis on 04/01/2025. Per caregiver, the patient was lethargic post-dialysis, noted to desaturate to 83% on room air, and was placed on supplemental O2 with improvement to 93%. At baseline, the patient is reportedly alert and oriented ?3 and takes his medications independently. He was recently admitted two weeks ago for acute hypoxic respiratory failure due to pneumonia, during which he was treated for Staphylococcus aureus bacteremia and discharged on rifampin. On current admission, workup showed dense right upper lobe pneumonia with right basilar infiltrate, mild heart failure, and pCO2 50 with compensatory HCO3 31 (ABG pH 7.41). CT head negative. He was started on azithromycin and ceftriaxone in the ED and remains on rifampin 300 mg PO BID. Patient currently seen awake, alert and oriented, denies chest pain, shortness of breath, or abdominal pain. Reports mild back pain consistent with baseline. Still refusing MRI. Consulted for ESRD on HD. Patient was seen at the dialysis unit yesterday. cc:: cc: Stephania Mcmanus MD Review of Systems Review of Systems Narrative Review of Systems: Denies any chest pain. Does have back pain. Right elbow pain seems to be better Past Medical History Past Medical History NEUROLOGIC: Positive Cerebrovascular Accident (5 years ago) CARDIAC: Positive Cardiac Disorders (NSTEMI), Atrial Fibrillation, Congestive Heart Failure and Hypertension RESPIRATORY: Negative Chronic Obstructive Pulmonary Disease (COPD) GASTROINTESTINAL: Negative Gastrointestinal Disorders GENITOURINARY: Positive Chronic Kidney Disease, Renal Disease and Dialysis MUSCULOSKELETAL: Positive Musculoskeletal Disorders and Muscular Dystrophy ENDOCRINE: Negative Endocrine Disorders, Diabetes Mellitus Type 1 or Diabetes Mellitus Type 2 Social History SMOKING STATUS: Unknown if ever smoked ALCOHOL LAST INTAKE: Unknown Meds Home Medications and Allergies Home Medications ?Medication ?Instructions ?Recorded ?Confirmed ?Type acetaminophen 500 mg tablet 500 mg PO Q6H PRN fever or pain 04/01/25 04/02/25 History apixaban 5 mg tablet (Eliquis) 5 mg PO BID atrial fibrilation 04/01/25 04/02/25 History atorvastatin 20 mg tablet 20 mg PO .qHS hyperlipidemia 04/01/25 04/02/25 History calcium acetate(phosphat bind) 667 667 mg PO BID 04/01/25 04/02/25 History mg capsule carvedilol 6.25 mg tablet 6.25 mg PO Q12H Hypertension 04/01/25 04/02/25 History cyclobenzaprine 10 mg tablet 10 mg PO Q8H PRN muscle spasm 04/01/25 04/02/25 History diclofenac sodium 1 % topical gel 2.25 inch topical Q8H PRN pain 04/01/25 04/02/25 History gabapentin 300 mg capsule 300 mg PO BID Neuropathy 04/01/25 04/02/25 History ropinirole 0.5 mg tablet 0.5 mg PO QDAY restless leg 04/01/25 04/02/25 History syndrome sevelamer carbonate 800 mg tablet 800 mg PO TIDWMEAL Phosporus Binder 04/01/25 04/02/25 History sodium bicarbonate 650 mg tablet 650 mg PO BID GERD 04/01/25 04/02/25 History amiodarone 200 mg tablet 200 mg PO BID atrial fibrilation 04/02/25 04/02/25 History clonazepam 2 mg tablet (Klonopin) 2 mg PO Q8H PRN Axiety 04/02/25 04/02/25 History diltiazem HCl 30 mg tablet 30 mg PO Q6H Hypertension 04/02/25 04/02/25 History (Cardizem) escitalopram oxalate 10 mg tablet 10 mg PO QDAY Agitation 04/02/25 04/02/25 History (Lexapro) lisinopril 5 mg tablet 5 mg PO QDAY Hypertension 04/02/25 04/02/25 History rifampin 300 mg capsule 300 mg PO BID bacteremia 04/02/25 04/02/25 History Allergies Allergy/AdvReac Type Severity Reaction Status Date / Time ketorolac Allergy Verified 04/01/25 16:17 Exam Vital Signs Temp Pulse Resp BP Pulse Ox O2 Del Method O2 Flow Rate 36.7 C 82 20 131/81 H 93 L Nasal Cannula 2 04/02/25 04:00 04/02/25 04:00 04/02/25 04:00 04/02/25 04:00 04/02/25 04:00 04/02/25 04:00 04/02/25 04:00 Narrative Exam General: Awake, alert and oriented, no acute distress. HEENT: Mucous membranes moist; pupils equal and reactive. CV: Regular rate and rhythm. Resp: Diminished breath sounds right base; on 2 L NC, saturating 97%. Abdomen: Soft, non-tender, non-distended. Extremities: No edema. Access: Right subclavian tunneled dialysis catheter, site clean/dry/intact. Neuro: Moves all extremities; no focal deficits. Results Labs 04/03/25 05:12 04/03/25 05:12 Labs: Short CBC 04/01/25 04/02/25 Range/Units 18:20 05:20 WBC 5.8 6.6 (3.8-10.6) Thou/mm3 Hgb 9.1 L 10.2 L (13.5-16.0) g/dL Hct 28.2 L 33.0 L (41.0-53.0) % Plt Count 141 136 L (140-440) Thou/mm3 BMP 04/01/25 04/02/25 18:20 05:20 Sodium 139 140 Potassium 3.6 4.1 D Chloride 96 L 97 L Carbon Dioxide 31.2 H 29.7 BUN 21 26 H Creatinine 3.8 H 4.4 H* D Glucose 86 77 Calcium 8.0 L 7.7 L Cardiac Enzymes 04/01/25 Range/Units 18:20 Troponin I 0.028 (0.0-0.045) ng/mL Liver Function 04/01/25 04/02/25 Range/Units 18:20 05:20 Total Bilirubin 0.4 0.4 (0.3-1.2) mg/dL AST 39 H 45 H (0-34) U/L ALT < 7 L < 7 L (10-49) U/L Alkaline Phosphatase 57 60 (46-116) U/L Albumin 3.4 3.5 (3.4-4.8) gm/dL ABG Interpretation ABG results: 04/01/25 04/01/25 18:20 23:33 ABG pH 7.41 ABG pCO2 50 H ABG pO2 94 ABG HCO3 31 H ABG O2 Saturation 98 ABG Base Excess 6 H VBG pH 7.46 VBG pCO2 48 VBG pO2 28 VBG Base Excess 9 H Assessment & Plan Additional Assessment & Plan Additional Plan: 69-year-old male with ESRD on hemodialysis admitted for altered mental status and acute hypoxic respiratory failure secondary to pneumonia, currently on antibiotics and rifampin course. HD completed 04/01/25 prior to admission. Clinically stable today on O2 2 L NC. # ESRD on Hemodialysis Chronic ESRD on HD (Friday/Friday/Friday). Last session 04/01/25. No acute indication for emergent dialysis today. Plan: Resume regular HD schedule (//) starting (04/04). Continue renal medications: Strict I/O monitoring, daily weight, avoid nephrotoxins. Monitor electrolytes and volume status daily. Coordinate with HD unit for transport once stable for discharge to SNF. Other active problems: #Pneumonia #Altered mental status #Atrial fibrillation #Congestive heart failure #Hypertension #Chronic back pain #History of stroke #Anxiety / depression Management per primary team
[2025-04-02] MEDS: AMIODARONE HCL 200 MG TABLET PO ×2 (08:47→20:24)
[2025-04-02] MEDS: ESCITALOPRAM OXALATE 10 MG TABLET PO (08:48)
[2025-04-02] MEDS: APIXABAN 2.5 MG TABLET 5 MG PO (08:48)
[2025-04-02] MEDS: cefTRIAXone/D5w 1gm IV premix 1 GM/50 ML BAG IV (08:49)
--- NOTE | 2025-04-02 10:14 | ESPR_ITS ---
<Statement entered by Soraida Charles MD - 04/04/25 15:52> I reviewed above note and agree with findings and plans. I have also personally examined the patient with medicine team and went over assessment and plan with medical team including internal medicine doctor and resident physician. Documentation for date of: 04/02/25 Subjective Subjective Interval history: Patient seen at bedside. No acute overnight events. Patient denies any chest pain, shortness of breath, abdominal pain, nausea, vomiting, dizziness. Patient's vitals and labs were reviewed. Patient's confusion has resolved, alert and oriented x 3. Patient mentions getting [place] 5 every 6 hours at SNF, needs readjusdments as this is likely the cause of resp desats while getting HDs. Exam Vital Signs Temp Pulse Resp BP Pulse Ox O2 Del Method O2 Flow Rate 99.9 F 81 18 130/71 98 Nasal Cannula 2 04/02/25 08:00 04/02/25 08:48 04/02/25 08:00 04/02/25 08:48 04/02/25 08:00 04/02/25 08:00 04/02/25 04:00 Narrative Exam General: Awake and in no acute distress. Conversing well. Neurologic: Alert and oriented x3, no gross neurological deficit, and patient able to move all 4 extremities. HEENT: Normocephalic, atraumatic, mucous membranes moist. Pupils reactive to light. Extraocular eye movements intact. Pupils dilated approximately 4 mm. Heart: Regular rate and rhythm, normal S1 and S2, no murmurs. Lungs: Decreased breath sounds in the bases bilaterally. Abdomen: Soft, nondistended, nontender, positive bowel sounds. No guarding or rebound tenderness. Extremities: Right subclavian dialysis cath. No edema. 2+ radial and dorsalis pedis pulses bilaterally. 5 out of 5 strength in the upper and lower extremities bilaterally. Skin: Warm. Dry. No rash or ecchymoses. Objective Labs 04/02/25 05:20 04/02/25 05:20 Labs: Laboratory Results - last 24 hr 04/01/25 04/01/25 04/01/25 18:20 23:33 23:42 WBC 5.8 RBC 2.76 L Hgb 9.1 L Hct 28.2 L MCV 102 H MCH 33.0 MCHC 32.3 RDW Std Deviation 61.1 H Plt Count 141 Neut % (Auto) 65 Lymph % (Auto) 17 Rankin % (Auto) 13 H Eos % (Auto) 5 Baso % (Auto) 1 Neut # (Auto) 3.8 Lymph # (Auto) 1.0 Rankin # (Auto) 0.7 Eos # (Auto) 0.3 Baso # (Auto) 0.1 Immature Gran # (Auto) 0.03 H Absolute Nucleated RBC 0.00 Immature Gran % 1 H Nucleated RBC % 0 PT 12.4 H INR 1.2 APTT 31.9 Puncture Site Left Radial ABG pH 7.41 ABG pCO2 50 H ABG pO2 94 ABG HCO3 31 H ABG O2 Saturation 98 ABG Base Excess 6 H VBG pH 7.46 VBG pCO2 48 VBG pO2 28 VBG O2 Sat (Sue) 56 L VBG Base Excess 9 H FiO2 21 Sodium 139 Potassium 3.6 Chloride 96 L Carbon Dioxide 31.2 H Anion Gap 12 BUN 21 Creatinine 3.8 H Estim Creat Clear Calc Not Performed. eGFR 16 L BUN/Creatinine Ratio 6 L Glucose 86 Calculated Osmolality 279 Calcium 8.0 L Corrected Calcium 8.5 Phosphorus Magnesium Total Bilirubin 0.4 AST 39 H ALT < 7 L Alkaline Phosphatase 57 Ammonia < 10 L Troponin I 0.028 B-Natriuretic Peptide 432 H Total Protein 6.6 Albumin 3.4 Globulin 3.2 Albumin/Globulin Ratio 1.1 L Triglycerides Cholesterol LDL Cholesterol, Calc HDL Cholesterol Cholesterol/HDL Ratio 04/02/ 05:20 WBC 6.6 RBC 3.05 L Hgb 10.2 L Hct 33.0 L MCV 108 H MCH 33.4 MCHC 30.9 L RDW Std Deviation 65.3 H Plt Count 136 L Neut % (Auto) 69 Lymph % (Auto) 12 Rankin % (Auto) 15 H Eos % (Auto) 3 Baso % (Auto) 1 Neut # (Auto) 4.6 Lymph # (Auto) 0.8 L Rankin # (Auto) 1.0 H Eos # (Auto) 0.2 Baso # (Auto) 0.1 Immature Gran # (Auto) 0.04 H Absolute Nucleated RBC 0.00 Immature Gran % 1 H Nucleated RBC % 0 PT INR APTT Puncture Site ABG pH ABG pCO2 ABG pO2 ABG HCO3 ABG O2 Saturation ABG Base Excess VBG pH VBG pCO2 VBG pO2 VBG O2 Sat (Sue) VBG Base Excess FiO2 Sodium 140 Potassium 4.1 D Chloride 97 L Carbon Dioxide 29.7 Anion Gap 13 BUN 26 H Creatinine 4.4 H* D Estim Creat Clear Calc 15.7 L eGFR 14 L* BUN/Creatinine Ratio 6 L Glucose 77 Calculated Osmolality 283 Calcium 7.7 L Corrected Calcium 8.1 L Phosphorus 4.7 Magnesium 2.1 Total Bilirubin 0.4 AST 45 H ALT < 7 L Alkaline Phosphatase 60 Ammonia Troponin I B-Natriuretic Peptide Total Protein 7.0 Albumin 3.5 Globulin 3.5 Albumin/Globulin Ratio 1.0 L Triglycerides 130 Cholesterol 143 LDL Cholesterol, Calc 95 HDL Cholesterol 22 L Cholesterol/HDL Ratio 6.5 ABG Interpretation ABG results: 04/01/25 04/01/25 18:20 23:33 ABG pH 7.41 ABG pCO2 50 H ABG pO2 94 ABG HCO3 31 H ABG O2 Saturation 98 ABG Base Excess 6 H VBG pH 7.46 VBG pCO2 48 VBG pO2 28 VBG Base Excess 9 H Quality Measures Quality Measures none Advance care planning discussed with:: patient Assessment & Plan Assessment Current Active Medications: Generic Name Dose Route Start Last Admin Trade Name Freq PRN Reason Stop Dose Admin Acetaminophen 1,000 mg 04/01/25 23:08 Acetaminophen 325 Mg Tablet PO 05/01/25 23:07 Q6H PRN Fever >99.9 Amiodarone HCl 200 mg 04/02/25 09:00 04/02/25 08:47 Amiodarone Hcl 200 Mg Tablet PO 05/02/25 08:59 200 mg BID REEMA Administration Apixaban 5 mg 04/02/25 09:00 04/02/25 08:48 Apixaban 2.5 Mg Tablet PO 05/02/25 08:59 5 mg DAILY REEMA Administration Atorvastatin Calcium 20 mg 04/02/25 21:00 Atorvastatin Calcium 20 Mg Tablet PO 05/02/25 20:59 HS REEMA Carvedilol 6.25 mg 04/02/25 09:00 04/02/25 08:48 Carvedilol 3.125 Mg Tablet PO 05/02/25 08:59 6.25 mg BID REEMA Administration Escitalopram Oxalate 10 mg 04/02/25 09:00 04/02/25 08:48 Escitalopram Oxalate 10 Mg Tablet PO 05/02/25 08:59 10 mg QDAY REEMA Administration Hydroxyzine HCl 25 mg 04/02/25 10:10 Hydroxyzine Hcl 25 Mg Tablet PO 05/02/25 10:09 Q6HR PRN ANXIETY Sodium Chloride 1,000 mls @ 50 mls/hr 04/01/25 17:36 04/01/25 18:32 Ns IV 04/02/25 13:35 50 mls/hr .Q20H ONE Administration Azithromycin 500 mg/ Sodium 250 mls @ 250 mls/hr 04/02/25 09:00 Chloride IV 04/09/25 08:59 QDAY REEMA Ceftriaxone Sodium/Dextrose 1 gm in 50 mls @ 100 mls/hr 04/02/25 09:00 04/02/25 08:49 Rocephin/D5w 1gm Iv Premix IV 04/09/25 08:59 100 mls/hr QDAY REEMA Administration Ondansetron HCl 4 mg 04/01/25 23:08 Ondansetron Inj 2 Mg/Ml Inj 2 Ml IVP 05/01/25 23:07 Q6H PRN NAUSEA OR VOMITING Protocol Rifampin 300 mg 04/02/25 09:00 04/02/25 08:47 Rifampin 300 Mg Capsule PO 05/02/25 08:59 300 mg BID REEMA Administration Plan 69-year-old male with a past medical history of A-fib, CHF, hypertension, ESRD on dialysis, chronic back pain, and a previous stroke 5 years ago presented today from [facility] with altered mental status. Patient was admitted for his altered mental status. 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 On admission, oxygen saturation is 99% on 3 L nasal cannula. Chest CT demonstrates a dense right upper lobe consolidation consistent with pneumonia, as well as right basilar infiltrates. Chest X-ray confirms extensive right lung pneumonia. Per the rehab facility, the patient is being treated with rifampin for a recent bacteremia, possibly related to a catheter-related bloodstream infection (CRBSI) in the setting of a prosthetic device (hemodialysis line). Currently afebrile and without leukocytosis. Plan: -Rifampin 300 mg PO BID -Azithromycin 500 mg IV daily -Ceftriaxone 1 g IV daily -Blood cultures ordered -Titrate supplemental oxygen to a saturation of 97%. #Hx of Paroxysmal A-fib, rate controlled EKG showed sinus rhythm, rate controlled. Plan: Continue home Eliquis 5mg BID Continue home amiodarone 200mg BID Continue home carvedilol 6.25mg q12h #ESRD on dialysis Patient went for dialysis on 04-01-2025, was lethargic on return Plan: - Nephrology consulted #Chronic back pain Per patient chart review Plan: - Re-adjust opioid meds #Anxiety - Continue home Lexapro 10 mg daily #Hyperlipidemia - Continue home atorvastatin 20 mg p.o. nightly Hospital Maintenance: DVT ppx: SCDs Diet: Regular diet IV lines: Peripheral IVs, right subclavian dialysis catheter Code status: Full code Dispo: Admitted for altered mental status Case discussed with my attending Dr. Charles, and senior resident, Dr. Jed Jeong MD PGY-1
--- NOTE | 2025-04-02 11:46 | PC.SS ---
Audit Lead (DONALD) Linda met with the patient at the bedside to complete the initial assessment and discuss the discharge plan. Per chart review, the patient presented to the ED [facility] from [facility] for evaluation of shortness of breath after completing his dialysis. Additionally complains of pain in his back.??SW introduced self, role, and reason for the consult. Upon entering the room, the patient was bleeding from his IV line; SW notified the RN immediately. Patient verbally consented to participate in the assessment. Patient is alert and oriented to person, place, time, and situation. The patient named his sister as his surrogate medical decision maker, Tish Persaud from [place], but does not have her phone number. DONALD completed an online search and was able to locate Tish; however, all phone numbers listed are disconnected. Patient is Kyle Dwyer, 69 y/o American-speaking male coming from [facility]. Patient is on dialysis at [facility]. Patient reports using a wheelchair at baseline. Patient's PCP is Dr. Flores. The patient's discharge plan is to return to [facility]. SW spoke to Lily from [facility], who reports the patient is currently on a 7-day bed hold; the patient will need insurance auth. Patient is currently on 3L O2; [facility] resident Dr. Adkins, during rounds, reported patient will stay one more day and will wean off oxygen. The patient will need transportation back to [facility]. Patient does not have his wheelchair with him.?? Discharge plan: Return to [facility]
--- NOTE | 2025-04-02 13:47 | PD.VCONSULT1 ---
Telemedicine visit statement This visit was conducted with the use of interactive audio and video telecommunications system that permits real time communication between the patient and the provider. Patient's verbal consent for virtual visit was obtained on 04/02/25 at 1347. History of Present Illness History of Present Illness History of present illness: Patient is a 69-year-old male with atrial fibrillation, congestive heart failure, hypertension, end-stage renal disease on dialysis, chronic low back pain and old ischemic stroke transferred from [facility] with altered mental status. Per the patient's caregiver, he was lethargic after returning from dialysis on 04/01/2025. He desaturated to 83% oxygen on room air at which time the caregiver at the rehab center put him on supplemental oxygen and his saturation improved to 93 percent. Per the caregiver his baseline mental status is alert and oriented x 3 and the patient is able to take his medications by himself, but he needed help on the day of admission. The patient was admitted to [facility] [address] approximately 2 weeks ago for acute hypoxic respiratory failure secondary to pneumonia. Of note, the patient is on a course of rifampin for bacteremia per the rehab center until 05/11/2025. The patient was admitted for altered mental status and neurology was consulted. Workup in the ER: Vitals: BP 117/60, pulse 71, respiratory rate 18, temp 97.8, saturating at 97% on 1.5 L nasal cannula. Labs: Hemoglobin 9.1, hematocrit 28.2, MCV 102, creatinine 3.8, BNP 432. ABG showed a pH of 7.41, pCO2 of 50, pO2 94, HCO3 of 31. Imaging: Chest x-ray showed extensive right lung pneumonia, mild associated heart failure. EKG shows sinus rhythm with a rate of 69. Head CT negative. Chest CT showed dense opacity in the right upper lobe most consistent with pneumonic consolidation, there is a right base pneumonia, mild heart failure. Patient was placed on supplemental oxygen and given a dose of azithromycin, hydrocodone, morphine, ceftriaxone, and albuterol treatment, and started on IV fluid. Past Medical History Past Medical History NEUROLOGIC: Positive Cerebrovascular Accident (5 years ago) CARDIAC: Positive Cardiac Disorders (NSTEMI), Atrial Fibrillation, Congestive Heart Failure and Hypertension RESPIRATORY: Negative Chronic Obstructive Pulmonary Disease (COPD) GASTROINTESTINAL: Negative Gastrointestinal Disorders GENITOURINARY: Positive Chronic Kidney Disease, Renal Disease and Dialysis MUSCULOSKELETAL: Positive Musculoskeletal Disorders and Muscular Dystrophy ENDOCRINE: Negative Endocrine Disorders, Diabetes Mellitus Type 1 or Diabetes Mellitus Type 2 Social History SMOKING STATUS: Unknown if ever smoked ALCOHOL LAST INTAKE: Unknown TeleMedicine ROS Pertinent Review of Systems Systems Reviewed: All systems reviewed, normal except as documented Meds Home Medications and Allergies Home Medications ?Medication ?Instructions ?Recorded ?Confirmed ?Type acetaminophen 500 mg tablet 500 mg PO Q6H PRN fever or pain 04/01/25 04/02/25 History apixaban 5 mg tablet (Eliquis) 5 mg PO BID atrial fibrilation 04/01/25 04/02/25 History atorvastatin 20 mg tablet 20 mg PO .qHS hyperlipidemia 04/01/25 04/02/25 History calcium acetate(phosphat bind) 667 667 mg PO BID 04/01/25 04/02/25 History mg capsule carvedilol 6.25 mg tablet 6.25 mg PO Q12H Hypertension 04/01/25 04/02/25 History cyclobenzaprine 10 mg tablet 10 mg PO Q8H PRN muscle spasm 04/01/25 04/02/25 History diclofenac sodium 1 % topical gel 2.25 inch topical Q8H PRN pain 04/01/25 04/02/25 History gabapentin 300 mg capsule 300 mg PO BID Neuropathy 04/01/25 04/02/25 History ropinirole 0.5 mg tablet 0.5 mg PO QDAY restless leg 04/01/25 04/02/25 History syndrome sevelamer carbonate 800 mg tablet 800 mg PO TIDWMEAL Phosporus Binder 04/01/25 04/02/25 History sodium bicarbonate 650 mg tablet 650 mg PO BID GERD 04/01/25 04/02/25 History amiodarone 200 mg tablet 200 mg PO BID atrial fibrilation 04/02/25 04/02/25 History clonazepam 2 mg tablet (Klonopin) 2 mg PO Q8H PRN Axiety 04/02/25 04/02/25 History diltiazem HCl 30 mg tablet 30 mg PO Q6H Hypertension 04/02/25 04/02/25 History (Cardizem) escitalopram oxalate 10 mg tablet 10 mg PO QDAY Agitation 04/02/25 04/02/25 History (Lexapro) lisinopril 5 mg tablet 5 mg PO QDAY Hypertension 04/02/25 04/02/25 History rifampin 300 mg capsule 300 mg PO BID bacteremia 04/02/25 04/02/25 History Allergies Allergy/AdvReac Type Severity Reaction Status Date / Time ketorolac Allergy Verified 04/01/25 16:17 Virtual exam Vital Signs Temp Pulse Resp BP Pulse Ox O2 Del Method O2 Flow Rate 99.9 F 81 18 130/71 98 Nasal Cannula 2 04/02/25 08:00 04/02/25 08:48 04/02/25 08:00 04/02/25 08:48 04/02/25 08:00 04/02/25 08:00 04/02/25 04:00 Results Labs 04/03/25 05:12 04/03/25 05:12 Labs: Short CBC 04/01/25 04/02/25 Range/Units 18:20 05:20 WBC 5.8 6.6 (3.8-10.6) Thou/mm3 Hgb 9.1 L 10.2 L (13.5-16.0) g/dL Hct 28.2 L 33.0 L (41.0-53.0) % Plt Count 141 136 L (140-440) Thou/mm3 BMP 04/01/25 04/02/25 18:20 05:20 Sodium 139 140 Potassium 3.6 4.1 D Chloride 96 L 97 L Carbon Dioxide 31.2 H 29.7 BUN 21 26 H Creatinine 3.8 H 4.4 H* D Glucose 86 77 Calcium 8.0 L 7.7 L Cardiac Enzymes 04/01/25 Range/Units 18:20 Troponin I 0.028 (0.0-0.045) ng/mL Liver Function 04/01/25 04/02/25 Range/Units 18:20 05:20 Total Bilirubin 0.4 0.4 (0.3-1.2) mg/dL AST 39 H 45 H (0-34) U/L ALT < 7 L < 7 L (10-49) U/L Alkaline Phosphatase 57 60 (46-116) U/L Albumin 3.4 3.5 (3.4-4.8) gm/dL ABG Interpretation ABG results: 04/01/25 04/01/25 18:20 23:33 ABG pH 7.41 ABG pCO2 50 H ABG pO2 94 ABG HCO3 31 H ABG O2 Saturation 98 ABG Base Excess 6 H VBG pH 7.46 VBG pCO2 48 VBG pO2 28 VBG Base Excess 9 H Assessment & Plan Problem List (1) Altered mental status: Status: Acute Assessment and plan: Secondary to metabolic encephalopathy from newly detected pneumonia from chest x-ray and CT. Will continue to monitor him closely and IV antibiotics with oxygen as needed Follow the chest x-ray periodically If mental status does not get any better, we will consider doing MRI and EEG to evaluate further Other medical problems: Hypertension: Continue with lisinopril Atrial fibrillation : Continue with amiodarone and carvedilol for rate control and Eliquis for embolism prevention end-stage renal disease on dialysis: Continue with maintenance hemodialysis Restless leg syndrome: Continue with ropinirole Bacteremia: On rifampin
[2025-04-02] MEDS: AZITHROMYCIN INJ 500 MG in SODIUM CHLORIDE 0.9% 250 ML 250 ML 250 MG IV (14:00)
--- NOTE | 2025-04-02 15:05 | PC.SS ---
Rounding note: Possible discharge tomorrow, 04/02/25, after IV abx. Patient will return to [facility], will need insurance auth.
[2025-04-02] MEDS: HYDROcodone/APAP 5/325 TABLET 1 TAB PO (20:24)
[2025-04-02] MEDS: ATORVASTATIN CALCIUM 20 MG TABLET PO (20:24)
[2025-04-03] VITALS (11 sets, daily range): BP systolic 99–161; BP diastolic 64–96; PULSE 72–94; RESP 12–24; TEMP 36.7–37.2; O2SAT 88–98; BMI 22.1
[2025-04-03] MEDS: HYDROcodone/APAP 5/325 TABLET 1 TAB PO ×3 (02:24→20:06)
[2025-04-03 06:22] LABS: Basophils # (Auto) 0.1 Thou/mm3 (0.0-0.2); Basophils % (Auto) 1 % (0-2.5); Eosinophils # (Auto) 0.2 Thou/mm3 (0.0-0.5); Eosinophils % (Auto) 3 % (0-10); Hematocrit 27.2 % (41.0-53.0); Immature Granulocytes Auto 0.02 Thou/mm3 (0.00-0.00); Lymphocytes # (Auto) 0.9 Thou/mm3 (1.0-4.8); Lymphocytes % (Auto) 18 % (10-50); Mean Corpuscular HGB Conc 30.9 g/dl (31.0-37.0); Mean Corpuscular Hemoglobin 32.9 pg (25.0-35.0); Mean Corpuscular Volume 107 fL (80-100); Monocytes # (Auto) 0.5 Thou/mm3 (0.0-0.8); Monocytes % (Auto) 11 % (0-12); Neutrophils # (Auto) 3.2 Thou/mm3 (1.8-7.7); Neutrophils % (Auto) 67 % (37-80); Nucleated Red Blood Cell # 0.00 Thou/mm3 (0.00-0.00); Nucleated Red Blood Cell % 0 /100 WBC (0); Platelet Count 113 Thou/mm3 (140-440); RDW Standard Deviation 64.1 fL (35.1-43.9); Red Blood Count 2.55 Miln/mm3 (4.50-5.90); White Blood Count 4.8 Thou/mm3 (3.8-10.6)
[2025-04-03 06:23] LABS: Hemoglobin 8.4 g/dL (13.5-16.0)
[2025-04-03 07:44] LABS: Alanine Aminotransferase < 7 U/L (10-49); Albumin, Serum 3.2 gm/dL (3.4-4.8); Albumin/Globulin Ratio 1.0 (1.2-2.2); Alkaline Phosphatase 51 U/L (46-116); Anion Gap 12 (7-16); Aspartate Amino Transferase 34 U/L (0-34); BUN/Creatinine Ratio 7 Ratio (12-20); Bilirubin,Total 0.4 mg/dL (0.3-1.2); Blood Urea Nitrogen 37 mg/dL (9-23); Calcium 7.5 mg/dL (8.3-10.6); Calcium (Corrected) 8.1 mg/dL (8.5-10.1); Carbon Dioxide 26.5 mMol/L (20.0-31.0); Chloride 101 mMol/L (98-107); Creatinine (Component) 5.6 mg/dL (0.6-1.3); Estimated Creatinine Clearance 12.3 mL/min (>60); Globulin 3.1 gm/dL (2.3-3.5); Glucose 105 mg/dL (74-106); Osmolality,Calculated 286 (275-295); Potassium 3.8 mMol/L (3.4-5.1); Sodium 139 mMol/L (136-145); Total Protein 6.3 gm/dL (5.7-8.2); eGFR 10 See Note
--- NOTE | 2025-04-03 08:00 | EKG_ITS ---
[facility] Test Date: 2025-04-02 Pat Name: ARI NAVARRO [facility] Gender: Male Protection Mgr: MARKELL : 1955 Requested By: Ricky Adkins Order Number: [id number] Reading MD: Ricky Adkins Measurements Intervals [place] Rate: 75 P: 92 VT: 160 QRS: 77 QRSD: 93 T: 75 QT: 431 QTc: 482 Interpretive Statements SINUS RHYTHM Compared to ECG 04/01/2025 18:05:02 Prolonged QT interval no longer present /store/S0/[id number].pdf
[2025-04-03] MEDS: AMIODARONE HCL 200 MG TABLET PO ×2 (08:56→20:15)
[2025-04-03] MEDS: cefTRIAXone/D5w 1gm IV premix 1 GM/50 ML BAG IV (08:57)
[2025-04-03] MEDS: APIXABAN 2.5 MG TABLET 5 MG PO (08:57)
[2025-04-03] MEDS: ESCITALOPRAM OXALATE 10 MG TABLET PO (08:57)
[2025-04-03] MEDS: AZITHROMYCIN INJ 500 MG in SODIUM CHLORIDE 0.9% 250 ML 250 ML 250 MG IV (08:57)
--- NOTE | 2025-04-03 09:22 | PD.RESDS ---
Planned Discharge Date 04/03/25 DS: Providers Provider Date of admission: 04/01/25 23:09 Primary care physician: Physician No Primary/Family Admitting Provider: Stephania Mcmanus MD Attending Provider on Admission: Stephania Mcmanus MD Consults: 04/02/25 01:06 Consult to Nephrology Routine Comment: ESRD on hemodialysis Consulting Provider: Britt Gaviria 04/02/25 01:07 Consult to Neurology / Tele-Neurology Routine Comment: Altered mental status, stroke 5 years ago Consulting Provider: Andrés Salguero Attending Provider on DC: Ricky Adkins MD Discharging Provider: Ricky Adkins MD Hospital Course Hospital Course Hospital course: Patient seen at bedside. No acute overnight events. Patient denies any chest pain, shortness of breath, abdominal pain, nausea, vomiting, dizziness. Patient's vitals and labs were reviewed. Patient's confusion has resolved, alert and oriented x 3. Patient mentions getting [place] 5 every 6 hours at SNF, needs readjusdments as this is likely the cause of resp desats while getting HDs. Time Spent with Patient Time attestation: Total time spent providing and/or coordinating discharge services: Exam Vital Signs Temp Pulse Resp BP Pulse Ox O2 Del Method O2 Flow Rate 98.0 F 88 21 H 161/96 H 98 Nasal Cannula 1 04/03/25 04:00 04/03/25 08:56 04/03/25 04:00 04/03/25 08:56 04/03/25 04:00 04/03/25 04:00 04/03/25 04:00 Discharge Plan Plan Patient Disposition: Xfer Skilled Nsg Fac (SNF) Care Plan Goals: Stop taking hydrocodone for breakthrough pain and instead ask your PCP to refer you to a pain specialist and take [id number] pain medication such as Tylenol instead Continue IV antibiotic regimen with dialysis session, cefazolin 2 g with dialysis along with the rifampin 300 mg by mouth twice a day until 06/03/2025 Please continue all other home medications Continue going to all dialysis sessions as scheduled Please follow-up with your PCP within 1 week of discharge or follow-up at the [facility] [address] [place] [address] If your symptoms worsen or if you develop new shortness of breath, chest pain, severe headache or loss of consciousness - please come back to the ED immediately Prescriptions/Referrals Prescriptions/Med Rec: Continued cyclobenzaprine 10 mg tablet 10 mg PO Q8H PRN (Reason: muscle spasm) Patient Comments: TAKE ONE TABLET BY MOUTH THREE TIMES DAILY NEEDED FOR MUSCLE SPASMS carvedilol 6.25 mg tablet 6.25 mg PO Q12H Rx Instructions: hold if SBP<110 and/or DBP<60 and or HR<60bpm atorvastatin 20 mg tablet 20 mg PO .qHS Patient Comments: TAKE ONE TABLET BY MOUTH EVERY DAY FOR CHOLESTEROL acetaminophen 500 mg tablet 500 mg PO Q6H PRN (Reason: fever or pain) Patient Comments: TAKE ONE TABLET BY MOUTH EVERY 6 HOURS FOR PAIN FOR FEVER Rx Instructions: for mild pain(1-3) and/or temp 100.4 or Higher APAP NTE 3Grams/24hrs sodium bicarbonate 650 mg tablet 650 mg PO BID Patient Comments: TAKE ONE TABLET BY MOUTH TWICE DAILY ropinirole 0.5 mg tablet 0.5 mg PO QDAY Patient Comments: TAKE ONE TABLET BY MOUTH 1-3 HOURS BEFORE bedtime gabapentin 300 mg capsule 300 mg PO BID Patient Comments: 1 capsule by mouth every morning and at bedtime calcium acetate(phosphat bind) 667 mg capsule 667 mg PO BID Patient Comments: TAKE ONE CAPSULE BY MOUTH THREE TIMES DAILY WITH FOOD Rx Instructions: administer with meals sevelamer carbonate 800 mg tablet 800 mg PO TIDWMEAL Patient Comments: TAKE ONE TABLET BY MOUTH THREE TIMES DAILY WITH FOOD diclofenac sodium 1 % gel 2.25 inch TOPICAL Q8H PRN (Reason: pain) Rx Instructions: apply to affected area topically every 8 hours as needed for Chronic Pain Eliquis 5 mg tablet 5 mg PO BID amiodarone 200 mg tablet 200 mg PO BID Rx Instructions: hold if HR<60BPM escitalopram oxalate [Lexapro] 10 mg tablet 10 mg PO QDAY Rx Instructions: agitated depression m/b episodes of Restlessness lisinopril 5 mg tablet 5 mg PO QDAY Rx Instructions: Hold if SBP <110 and/or DBP<60 rifampin 300 mg capsule 300 mg PO BID Rx Instructions: give by mouth every morning and at bedtime for bacteremia for 6weeks clonazepam [Klonopin] 2 mg tablet 2 mg PO Q8H PRN (Reason: Axiety) Rx Instructions: m/b Inability to relax diltiazem HCl [Cardizem] 30 mg tablet 30 mg PO Q6H Rx Instructions: HOLD IF SBP<110 AND/OR DBP<60 AND/OR HR<60BPM Discontinued hydrocodone-acetaminophen 5-325 mg tablet 1 tab PO Q6H PRN (Reason: pain) Patient Comments: TAKE ONE TABLET BY MOUTH THREE TIMES DAILY NEEDED FOR PAIN Rx Instructions: moderate to severe pain(4-10) APAP NTE 3grams/24hours Referrals: No Primary/Family,Physician [Primary Care Provider] Patient/Caregiver Discharge Instructions Print Language: Scottish Stand Alone Forms: Janelle Award Info., Patient Portal Info Letter Discharge Order Discharge Orders: Discharge (Routine); Ordered 04/03/25 Ordered By: Ricky Adkins
--- NOTE | 2025-04-03 09:51 | PC.SS ---
Forest Patrolman informed by Dr. Adkins patient can discharge today to [facility]. Lily
--- NOTE | 2025-04-03 10:00 | PC.SS ---
Transit Man informed by Dr. Adkins patient can discharge today to [facility]. Lily-[facility] SNF stated patient may need insurance auth. before he can return. Lily to verify and then confirm with this telegraphic typewriter installer.
--- NOTE | 2025-04-03 12:55 | PD.RESCONSUL ---
HPI Data of Consult Consult date: 04/03/25 Requesting Physician: Stephania Mcmanus MD Admitting Provider: Stephania Mcmanus MD Attending Provider: Stephania Mcmanus MD Primary Care Provider: Physician No Primary/Family Consult Narrative Reason for consult: ESRD on HD History of present illness: Mr. Dwyer is a 69-year-old male with a past medical history of end-stage renal disease on hemodialysis, atrial fibrillation, congestive heart failure (EF ~40?55%), hypertension, prior stroke (5 years ago), chronic back pain, and recent bacteremia on rifampin, who presented from [facility] with altered mental status after returning from dialysis on 04/01/2025. Per caregiver, the patient was lethargic post-dialysis, noted to desaturate to 83% on room air, and was placed on supplemental O2 with improvement to 93%. At baseline, the patient is reportedly alert and oriented ?3 and takes his medications independently. He was recently admitted two weeks ago for acute hypoxic respiratory failure due to pneumonia, during which he was treated for Staphylococcus aureus bacteremia and discharged on rifampin. On current admission, workup showed dense right upper lobe pneumonia with right basilar infiltrate, mild heart failure, and pCO2 50 with compensatory HCO3 31 (ABG pH 7.41). CT head negative. He was started on azithromycin and ceftriaxone in the ED and remains on rifampin 300 mg PO BID. Patient currently seen awake, alert and oriented, denies chest pain, shortness of breath, or abdominal pain. Reports mild back pain consistent with baseline. Still refusing MRI. Consulted for ESRD on HD. cc:: cc: Stephania Mcmanus MD Review of Systems Constitutional Comments: Negative unless stated above Exam Vital Signs Temp Pulse Resp BP Pulse Ox O2 Del Method O2 Flow Rate 99.0 F 88 12 161/96 H 94 L Nasal Cannula 1 04/03/25 08:00 04/03/25 08:56 04/03/25 08:00 04/03/25 08:56 04/03/25 08:00 04/03/25 08:00 04/03/25 08:00 Narrative Exam General: Awake, alert and oriented, no acute distress. HEENT: Mucous membranes moist; pupils equal and reactive. CV: Regular rate and rhythm. Resp: Diminished breath sounds right base; on 2 L NC, saturating 97%. Abdomen: Soft, non-tender, non-distended. Extremities: No edema. Access: Right subclavian tunneled dialysis catheter, site clean/dry/intact. Neuro: Moves all extremities; no focal deficits. Results Labs 04/03/25 05:12 04/03/25 05:12 Labs: Short CBC 04/03/25 Range/Units 05:12 WBC 4.8 (3.8-10.6) Thou/mm3 Hgb 8.4 L (13.5-16.0) g/dL Hct 27.2 L (41.0-53.0) % Plt Count 113 L (140-440) Thou/mm3 BMP 04/03/25 05:12 Sodium 139 Potassium 3.8 Chloride 101 Carbon Dioxide 26.5 BUN 37 H Creatinine 5.6 H* D Glucose 105 Calcium 7.5 L Liver Function 04/03/25 Range/Units 05:12 Total Bilirubin 0.4 (0.3-1.2) mg/dL AST 34 (0-34) U/L ALT < 7 L (10-49) U/L Alkaline Phosphatase 51 (46-116) U/L Albumin 3.2 L (3.4-4.8) gm/dL ABG Interpretation ABG results: 04/01/25 04/01/25 18:20 23:33 ABG pH 7.41 ABG pCO2 50 H ABG pO2 94 ABG HCO3 31 H ABG O2 Saturation 98 ABG Base Excess 6 H VBG pH 7.46 VBG pCO2 48 VBG pO2 28 VBG Base Excess 9 H Quality Measures Quality Measures VTE prophylaxis Advance care planning discussed with:: patient Medications Home Medications and Allergies Home Medications ?Medication ?Instructions ?Recorded ?Confirmed ?Type acetaminophen 500 mg tablet 500 mg PO Q6H PRN fever or pain 04/01/25 04/02/25 History apixaban 5 mg tablet (Eliquis) 5 mg PO BID atrial fibrilation 04/01/25 04/02/25 History atorvastatin 20 mg tablet 20 mg PO .qHS hyperlipidemia 04/01/25 04/02/25 History calcium acetate(phosphat bind) 667 667 mg PO BID 04/01/25 04/02/25 History mg capsule carvedilol 6.25 mg tablet 6.25 mg PO Q12H Hypertension 04/01/25 04/02/25 History cyclobenzaprine 10 mg tablet 10 mg PO Q8H PRN muscle spasm 04/01/25 04/02/25 History diclofenac sodium 1 % topical gel 2.25 inch topical Q8H PRN pain 04/01/25 04/02/25 History gabapentin 300 mg capsule 300 mg PO BID Neuropathy 04/01/25 04/02/25 History ropinirole 0.5 mg tablet 0.5 mg PO QDAY restless leg 04/01/25 04/02/25 History syndrome sevelamer carbonate 800 mg tablet 800 mg PO TIDWMEAL Phosporus Binder 04/01/25 04/02/25 History sodium bicarbonate 650 mg tablet 650 mg PO BID GERD 04/01/25 04/02/25 History amiodarone 200 mg tablet 200 mg PO BID atrial fibrilation 04/02/25 04/02/25 History clonazepam 2 mg tablet (Klonopin) 2 mg PO Q8H PRN Axiety 04/02/25 04/02/25 History diltiazem HCl 30 mg tablet 30 mg PO Q6H Hypertension 04/02/25 04/02/25 History (Cardizem) escitalopram oxalate 10 mg tablet 10 mg PO QDAY Agitation 04/02/25 04/02/25 History (Lexapro) lisinopril 5 mg tablet 5 mg PO QDAY Hypertension 04/02/25 04/02/25 History rifampin 300 mg capsule 300 mg PO BID bacteremia 04/02/25 04/02/25 History Allergies Allergy/AdvReac Type Severity Reaction Status Date / Time ketorolac Allergy Verified 04/01/25 16:17 Visit Medications Acetaminophen (Acetaminophen 325 Mg Tablet) 1,000 mg PO Q6H PRN PRN Reason: Fever >100.3, pain 1-3 Stop: 05/01/25 23:07 Hydrocodone Bitart/Acetaminophen (Hydrocodone/Apap 5/325 Tablet) 1 tab PO Q6HR PRN PRN Reason: Pain 4-8 Stop: 04/07/25 19:34 Last Admin: 04/03/25 08:55 Dose: 1 tab Amiodarone HCl (Amiodarone Hcl 200 Mg Tablet) 200 mg PO BID REEMA Stop: 05/02/25 08:59 Last Admin: 04/03/25 08:56 Dose: 200 mg Apixaban (Apixaban 2.5 Mg Tablet) 5 mg PO DAILY [facility] Stop: 05/02/25 08:59 Last Admin: 04/03/25 08:57 Dose: 5 mg Atorvastatin Calcium (Atorvastatin Calcium 20 Mg Tablet) 20 mg PO HS REEMA Stop: 05/02/25 20:59 Last Admin: 04/02/25 20:24 Dose: 20 mg Carvedilol (Carvedilol 3.125 Mg Tablet) 6.25 mg PO BID REEMA Stop: 05/02/25 08:59 Last Admin: 04/03/25 08:55 Dose: 6.25 mg Escitalopram Oxalate (Escitalopram Oxalate 10 Mg Tablet) 10 mg PO QDAY [facility] Stop: 05/02/25 08:59 Last Admin: 04/03/25 08:57 Dose: 10 mg Hydroxyzine HCl (Hydroxyzine Hcl 25 Mg Tablet) 25 mg PO Q6HR PRN PRN Reason: ANXIETY Stop: 05/02/25 10:09 Last Admin: 04/03/25 07:02 Dose: 25 mg Azithromycin 500 mg/ Sodium (Chloride) 250 mls @ 250 mls/hr IV QDAY [facility] Stop: 04/09/25 08:59 Last Admin: 04/03/25 08:57 Dose: 250 mls/hr Ceftriaxone Sodium/Dextrose (Rocephin/D5w 1gm Iv Premix) 1 gm in 50 mls @ 100 mls/hr IV QDAY [facility] Stop: 04/09/25 08:59 Last Admin: 04/03/25 08:57 Dose: 100 mls/hr Ondansetron HCl (Ondansetron Inj 2 Mg/Ml Inj 2 Ml) 4 mg IVP Q6H PRN; Protocol PRN Reason: NAUSEA OR VOMITING Stop: 05/01/25 23:07 Rifampin (Rifampin 300 Mg Capsule) 300 mg PO BID [facility] Stop: 05/02/25 08:59 Last Admin: 04/03/25 08:55 Dose: 300 mg Discontinued Medications Acetaminophen (Acetaminophen 325 Mg Tablet) 1,000 mg PO Q6H PRN PRN Reason: Fever >99.9 Stop: 05/01/25 23:07 Hydrocodone Bitart/Acetaminophen (Hydrocodone/Apap 5/325 Tablet) 1 tab PO X1 ONE Stop: 04/01/25 21:28 Last Admin: 04/01/25 21:36 Dose: 1 tab Albuterol (Albuterol Rt 2.5 Mg/3 Ml Nebu) 2.5 mg INH X1 ONE Stop: 04/01/25 17:38 Last Admin: 04/01/25 19:15 Dose: 2.5 mg Famotidine (Famotidine Inj 10 Mg/Ml Vial 2 Ml) 20 mg IVP X1 ONE Stop: 04/01/25 17:38 Last Admin: 04/01/25 18:30 Dose: 20 mg Sodium Chloride (Ns) 1,000 mls @ 50 mls/hr IV .Q20H ONE Stop: 04/02/25 13:35 Last Admin: 04/01/25 18:32 Dose: 50 mls/hr Ceftriaxone Sodium/Dextrose (Rocephin/D5w 1gm Iv Premix) 1 gm in 50 mls @ 100 mls/hr IV X1 ONE Stop: 04/01/25 20:53 Last Infusion: 04/01/25 21:17 Dose: Infused Azithromycin 500 mg/ Sodium (Chloride) 250 mls @ 250 mls/hr IV X1 ONE Stop: 04/01/25 21:23 Last Infusion: 04/01/25 22:38 Dose: Infused Morphine Sulfate (Morphine Sulf Inj 4 Mg/Ml Vial) 4 mg IVP X1 ONE Stop: 04/01/25 17:38 Last Admin: 04/01/25 18:31 Dose: 4 mg Ondansetron HCl (Ondansetron Inj 2 Mg/Ml Inj 2 Ml) 4 mg IVP X1 ONE; Protocol Stop: 04/01/25 17:38 Last Admin: 04/01/25 18:31 Dose: 4 mg Sevelamer Carbonate (Sevelamer Carbonate 800 Mg Tablet) 800 mg PO TIDWM REEMA Stop: 05/02/25 07:59 Assessment & Plan Plan 69-year-old male with ESRD on hemodialysis admitted for altered mental status and acute hypoxic respiratory failure secondary to pneumonia, currently on antibiotics and rifampin course. HD completed 04/01/25 prior to admission. Clinically stable today on O2 2 L NC. # ESRD on Hemodialysis Chronic ESRD on HD (Friday/Friday/Friday). Last session 04/01/25. No acute indication for emergent dialysis today. Plan: Resume regular HD schedule (//) starting tomorrow (04/04). Continue renal medications: Strict I/O monitoring, daily weight, avoid nephrotoxins. Monitor electrolytes and volume status daily. Coordinate with HD unit for transport once stable for discharge to SNF. Other active problems: #Pneumonia #Altered mental status #Atrial fibrillation #Congestive heart failure #Hypertension #Chronic back pain #History of stroke #Anxiety / depression Management per primary team ----- Plan discussed with attending physician Dr. Everette Pickett MD PGY-1 Internal Medicine Attending Provider Attestation/Addendum Patient seen and examined with resident physician Dr. Pickett. Note reviewed, agree with findings and recommendations. Patient currently seen in telemetry. Next dialysis scheduled for tomorrow.
--- NOTE | 2025-04-03 15:15 | ESPR_ITS ---
<Statement entered by Soraida Charles MD - 04/04/25 15:53> I reviewed above note and agree with findings and plans. I have also personally examined the patient with medicine team and went over assessment and plan with medical team including recording studio internship and resident physician. Documentation for date of: 04/03/25 Subjective Subjective Interval history: Patient seen and assessed in hospital bed denies having any concerning symptoms at this time. Patient supplemental oxygenation lowered and at this time does not require any. Patient counseled on cessation of [place] as this medication is likely causing his respiratory drive to be lowered at the SNF. Counseled on outpatient referral to pain specialist if he continues to have lower back pain. Reiterated importance of acquiring an MRI of his thoracic and lumbar spine secondary to his bacteremia which he will continue to be treated with an IV antibiotic regimen. Patient continues to reject MRI adamantly. Will continue monitoring expect discharge within the next 24 hours. Exam Vital Signs Temp Pulse Resp BP Pulse Ox O2 Del Method O2 Flow Rate 99.0 F 88 12 161/96 H 94 L Nasal Cannula 1 04/03/25 08:00 04/03/25 08:56 04/03/25 08:00 04/03/25 08:56 04/03/25 08:00 04/03/25 08:00 04/03/25 08:00 Narrative Exam General: Awake, alert and oriented, no acute distress. HEENT: Mucous membranes moist; pupils equal and reactive. CV: Regular rate and rhythm. Resp: Diminished breath sounds right base; on 2 L NC, saturating 97%. Abdomen: Soft, non-tender, non-distended. Extremities: No edema. Access: Right subclavian tunneled dialysis catheter, site clean/dry/intact. Neuro: Moves all extremities; no focal deficits. Objective Labs 04/03/25 05:12 04/03/25 05:12 Labs: Laboratory Results - last 24 hr 04/03/25 05:12 WBC 4.8 RBC 2.55 L Hgb 8.4 L Hct 27.2 L MCV 107 H MCH 32.9 MCHC 30.9 L RDW Std Deviation 64.1 H Plt Count 113 L Neut % (Auto) 67 Lymph % (Auto) 18 [place] % (Auto) 11 Eos % (Auto) 3 Baso % (Auto) 1 Neut # (Auto) 3.2 Lymph # (Auto) 0.9 L [place] # (Auto) 0.5 Eos # (Auto) 0.2 Baso # (Auto) 0.1 Immature Gran # (Auto) 0.02 H Absolute Nucleated RBC 0.00 Immature Gran % 0 Nucleated RBC % 0 Sodium 139 Potassium 3.8 Chloride 101 Carbon Dioxide 26.5 Anion Gap 12 BUN 37 H Creatinine 5.6 H* D Estim Creat Clear Calc 12.3 L eGFR 10 L* BUN/Creatinine Ratio 7 L Glucose 105 Calculated Osmolality 286 Calcium 7.5 L Corrected Calcium 8.1 L Total Bilirubin 0.4 AST 34 ALT < 7 L Alkaline Phosphatase 51 Total Protein 6.3 Albumin 3.2 L Globulin 3.1 Albumin/Globulin Ratio 1.0 L ABG Interpretation ABG results: 04/01/25 04/01/25 18:20 23:33 ABG pH 7.41 ABG pCO2 50 H ABG pO2 94 ABG HCO3 31 H ABG O2 Saturation 98 ABG Base Excess 6 H VBG pH 7.46 VBG pCO2 48 VBG pO2 28 VBG Base Excess 9 H Quality Measures Quality Measures VTE prophylaxis Advance care planning discussed with:: patient Assessment & Plan Assessment Current Active Medications: Generic Name Dose Route Start Last Admin Trade Name Freq PRN Reason Stop Dose Admin Acetaminophen 1,000 mg 04/02/25 19:35 Acetaminophen 325 Mg Tablet PO 05/01/25 23:07 Q6H PRN Fever >100.3, pain 1-3 Hydrocodone Bitart/Acetaminophen 1 tab 04/02/25 19:35 04/03/25 08:55 Hydrocodone/Apap 5/325 Tablet PO 04/07/25 19:34 1 tab Q6HR PRN Administration Pain 4-8 Amiodarone HCl 200 mg 04/02/25 09:00 04/03/25 08:56 Amiodarone Hcl 200 Mg Tablet PO 05/02/25 08:59 200 mg BID REEMA Administration Apixaban 5 mg 04/02/25 09:00 04/03/25 08:57 Apixaban 2.5 Mg Tablet PO 05/02/25 08:59 5 mg DAILY REEMA Administration Atorvastatin Calcium 20 mg 04/02/25 21:00 04/02/25 20:24 Atorvastatin Calcium 20 Mg Tablet PO 05/02/25 20:59 20 mg HS REEMA Administration Carvedilol 6.25 mg 04/02/25 09:00 04/03/25 08:55 Carvedilol 3.125 Mg Tablet PO 05/02/25 08:59 6.25 mg BID REEMA Administration Escitalopram Oxalate 10 mg 04/02/25 09:00 04/03/25 08:57 Escitalopram Oxalate 10 Mg Tablet PO 05/02/25 08:59 10 mg QDAY REEMA Administration Hydroxyzine HCl 25 mg 04/02/25 10:10 04/03/25 07:02 Hydroxyzine Hcl 25 Mg Tablet PO 05/02/25 10:09 25 mg Q6HR PRN Administration ANXIETY Azithromycin 500 mg/ Sodium 250 mls @ 250 mls/hr 04/02/25 09:00 04/03/25 08:57 Chloride IV 04/09/25 08:59 250 mls/hr QDAY REEMA Administration Ceftriaxone Sodium/Dextrose 1 gm in 50 mls @ 100 mls/hr 04/02/25 09:00 04/03/25 08:57 Rocephin/D5w 1gm Iv Premix IV 04/09/25 08:59 100 mls/hr QDAY REEMA Administration Ondansetron HCl 4 mg 04/01/25 23:08 Ondansetron Inj 2 Mg/Ml Inj 2 Ml IVP 05/01/25 23:07 Q6H PRN NAUSEA OR VOMITING Protocol Rifampin 300 mg 04/02/25 09:00 04/03/25 08:55 Rifampin 300 Mg Capsule PO 05/02/25 08:59 300 mg BID REEMA Administration Plan 69-year-old male with a past medical history of A-fib, CHF, hypertension, ESRD on dialysis, chronic back pain, and a previous stroke 5 years ago presented today from [facility] with altered mental status. Patient was admitted for his altered mental status. #Acute Encephalopathy, resolved 2/2 to polypharmacy and overuse of pain meds Per caregiver at acute rehab facility, the patient was lethargic on the day of admission and below his baseline mental status ABG showed a pCO2 of 50 and a bicarb of 31, pH was 7.[address] negative Ammonia negative Per the rehab facility, the patient is being treated for bacteremia with rifampin Plan: -Titrate supplemental oxygen to a saturation of 97% -Neurology consulted, see recs -Adjust pain meds prior to D/C; will discontinue [place] #Acute Hypoxic Respiratory Failure #Pneumonia (Right Upper and Lower Lobes) #History of Bacteremia (possible CRBSI, on chronic rifampin) Patient was noted to desaturate to 83% at the care facility, improving to 93% on supplemental oxygen. On admission, oxygen saturation is 99% on 3 L nasal cannula. Chest CT demonstrates a dense right upper lobe consolidation consistent with pneumonia, as well as right basilar infiltrates. Chest X-ray confirms extensive right lung pneumonia. Per the rehab facility, the patient is being treated with rifampin for a recent bacteremia, possibly related to a catheter-related bloodstream infection (CRBSI) in the setting of a prosthetic device (hemodialysis line). Currently afebrile and without leukocytosis. Blood cultures no growth in 24 hours Plan: -Rifampin 300 mg PO BID -Azithromycin 500 mg IV daily; will discontinue on discharge when regimen is completed -Ceftriaxone 1 g IV daily; will switch to IV cefazolin 2 g daily as per antibiotic regimen for bacteremia from previous admission -Titrate supplemental oxygen to a saturation of 97%. #Hx of Paroxysmal A-fib, rate controlled EKG showed sinus rhythm, rate controlled. Plan: Continue home Eliquis 5mg BID Continue home amiodarone 200mg BID Continue home carvedilol 6.25mg q12h #ESRD on dialysis Dialysis scheduled Friday Plan: - Nephrology consulted -Dialysis scheduled for 04/04 #Chronic back pain Per patient chart review Plan: - Re-adjust opioid meds #Anxiety - Continue home Lexapro 10 mg daily #Hyperlipidemia - Continue home atorvastatin 20 mg p.o. nightly Hospital Maintenance: DVT ppx: SCDs Diet: Regular diet IV lines: Peripheral IVs, right subclavian dialysis catheter Code status: Full code Dispo: Admitted for altered mental status Patient seen and assessed with attending Dr. Araceli Adkins, DO PGY-2 Internal Medicine - [facility]
--- NOTE | 2025-04-03 17:18 | XR_ITS ---
EXAMINATION: AP chest single view TECHNIQUE: Sitting AP portable chest single view Date and time: April 03, 2025, 1724 hours, comparison April 01, 2025 INDICATIONS: Shortness of breath today FINDINGS: Mild to moderate heart failure, enlarged cardiac contour with significant vascular congestion and perihilar edema Bilateral superimposed pneumonia especially in the right upper lobe Right internal jugular dialysis catheter tip right atrium Prominent osteopenia IMPRESSION: Mild to moderate heart failure Bilateral superimposed pneumonia
[2025-04-03 17:49] LABS: Base Excess 2 (-3-3); HCO3 26 mEq/L (20-26); O2 Saturation 98 % (91-98); PCO2 40 mmHg (32.0-48.0); PO2 89 mmHg (83-108); pH, Arterial 7.43 (7.35-7.45)
[2025-04-03 17:51] LABS: Allen Test Performed/OK; Inspired O2, VO2 Liters 3 L/min; Puncture Site Left Radial
[2025-04-03] MEDS: ALBUTEROL/IPRATROPIUM (Duoneb) RT SOL 3 ML NEBU INH (18:07)
[2025-04-03] MEDS: ATORVASTATIN CALCIUM 20 MG TABLET PO (20:05)
--- NOTE | 2025-04-03 23:13 | PD.NEUROPROG ---
Documentation for date of: 04/03/25 Subjective Subjective Interval history: Patient was seen in telemetry today. No new symptoms reported. Tolerating oral diet well. Exam - Neurology Vital Signs Temp Pulse Resp BP Pulse Ox O2 Del Method O2 Flow Rate 98.6 F 86 15 153/94 H 96 Nasal Cannula 1 04/03/25 20:00 04/03/25 20:15 04/03/25 20:00 04/03/25 20:15 04/03/25 20:00 04/03/25 20:00 04/03/25 20:00 Narrative Exam GENERAL APPEARANCE: Well hydrated, well-nourished in no acute distress. HEENT: Normocephalic, atraumatic, extraocular movements intact. Pupils: Equal reacting to light and accommodation NECK: Supple, no JVD or bruits. CARDIOVASULAR: Heart: S1, S2 heard, regular without S3-S4 or murmur no rubs or gallops. LUNGS/CHEST: Clear to auscultation bilaterally. No rails, rhonchi, or wheezing. Normal inspection. ABDOMEN: Soft, nontender, with normal bowel sounds. No pulsatile masses. No rebound, rigidity, or guarding. Normal inspection and palpation. EXTREMITIES: Normal inspection and palpation. No edema, clubbing or cyanosis. SKIN: Warm and dry without rashes. Normal inspection. MUSCULOSKELETAL: No cervical, thoracic, lumbar or midline bony tenderness. Normal inspection. NEURO: Alert, awake and oriented x2. Cranial nerves: II through XII grossly intact. Speech and language: Normal with no dysarthria or dysphasia. Hypophonic speech. Motor system: Tone and bulk: Normal: Strength: 5 out of 5 in all 4 extremities; No pronator drift noted. Deep tendon reflexes: 2+ bilaterally symmetrical. Plantar reflex: Downgoing bilaterally. Sensory system: Intact to all modalities of sensation bilaterally. Coordination: Intact to [id number] and [id number] test bilaterally. No ataxia, no dysmetria, or dysdiadochokinesia noted. No intention tremors noted. Gait: Not tested. No signs of meningeal irritation noted. PSYCHIATRIC: Limited. Objective Labs 04/03/25 05:12 04/03/25 05:12 Labs: Laboratory Results - last 24 hr 04/03/25 04/03/25 05:12 17:40 WBC 4.8 RBC 2.55 L Hgb 8.4 L Hct 27.2 L MCV 107 H MCH 32.9 MCHC 30.9 L RDW Std Deviation 64.1 H Plt Count 113 L Neut % (Auto) 67 Lymph % (Auto) 18 [place] % (Auto) 11 Eos % (Auto) 3 Baso % (Auto) 1 Neut # (Auto) 3.2 Lymph # (Auto) 0.9 L [place] # (Auto) 0.5 Eos # (Auto) 0.2 Baso # (Auto) 0.1 Immature Gran # (Auto) 0.02 H Absolute Nucleated RBC 0.00 Immature Gran % 0 Nucleated RBC % 0 Puncture Site Left Radial ABG pH 7.43 ABG pCO2 40 D ABG pO2 89 ABG HCO3 26 ABG O2 Saturation 98 ABG Base Excess 2 Oxygen Liter Flow 3 Sodium 139 Potassium 3.8 Chloride 101 Carbon Dioxide 26.5 Anion Gap 12 BUN 37 H Creatinine 5.6 H* D Estim Creat Clear Calc 12.3 L eGFR 10 L* BUN/Creatinine Ratio 7 L Glucose 105 Calculated Osmolality 286 Calcium 7.5 L Corrected Calcium 8.1 L Total Bilirubin 0.4 AST 34 ALT < 7 L Alkaline Phosphatase 51 Total Protein 6.3 Albumin 3.2 L Globulin 3.1 Albumin/Globulin Ratio 1.0 L ABG Interpretation ABG results: 04/01/25 04/01/25 04/03/25 18:20 23:33 17:40 ABG pH 7.41 7.43 ABG pCO2 50 H 40 D ABG pO2 94 89 ABG HCO3 31 H 26 ABG O2 Saturation 98 98 ABG Base Excess 6 H 2 VBG pH 7.46 VBG pCO2 48 VBG pO2 28 VBG Base Excess 9 H Assessment & Plan Assessment and plan (1) Altered mental status: Status: Acute
[2025-04-04] VITALS (33 sets, daily range): BP systolic 136–202; BP diastolic 69–116; PULSE 75–105; RESP 15–22; TEMP 36.8–37.2; O2SAT 91–100; BMI 22.1; BMI 13.0
[2025-04-04] MEDS: ALBUTEROL/IPRATROPIUM (Duoneb) RT SOL 3 ML NEBU INH ×6 (00:37→23:12)
[2025-04-04] MEDS: HYDROcodone/APAP 5/325 TABLET 1 TAB PO ×3 (05:38→20:41)
[2025-04-04 06:44] LABS: Basophils # (Auto) 0.0 Thou/mm3 (0.0-0.2); Basophils % (Auto) 1 % (0-2.5); Eosinophils # (Auto) 0.2 Thou/mm3 (0.0-0.5); Eosinophils % (Auto) 3 % (0-10); Hematocrit 28.4 % (41.0-53.0); Hemoglobin 9.1 g/dL (13.5-16.0); Immature Granulocytes Auto 0.03 Thou/mm3 (0.00-0.00); Lymphocytes # (Auto) 0.8 Thou/mm3 (1.0-4.8); Lymphocytes % (Auto) 14 % (10-50); Mean Corpuscular HGB Conc 32.0 g/dl (31.0-37.0); Mean Corpuscular Hemoglobin 32.9 pg (25.0-35.0); Mean Corpuscular Volume 103 fL (80-100); Monocytes # (Auto) 0.5 Thou/mm3 (0.0-0.8); Monocytes % (Auto) 9 % (0-12); Neutrophils # (Auto) 4.2 Thou/mm3 (1.8-7.7); Neutrophils % (Auto) 73 % (37-80); Nucleated Red Blood Cell # 0.00 Thou/mm3 (0.00-0.00); Nucleated Red Blood Cell % 0 /100 WBC (0); Platelet Count 127 Thou/mm3 (140-440); RDW Standard Deviation 61.2 fL (35.1-43.9); Red Blood Count 2.77 Miln/mm3 (4.50-5.90); White Blood Count 5.7 Thou/mm3 (3.8-10.6)
[2025-04-04 07:18] LABS: Alanine Aminotransferase < 7 U/L (10-49); Albumin, Serum 3.4 gm/dL (3.4-4.8); Albumin/Globulin Ratio 1.0 (1.2-2.2); Alkaline Phosphatase 53 U/L (46-116); Anion Gap 13 (7-16); Aspartate Amino Transferase 39 U/L (0-34); BUN/Creatinine Ratio 6 Ratio (12-20); Bilirubin,Total 0.5 mg/dL (0.3-1.2); Blood Urea Nitrogen 36 mg/dL (9-23); Calcium 7.6 mg/dL (8.3-10.6); Calcium (Corrected) 8.1 mg/dL (8.5-10.1); Carbon Dioxide 24.2 mMol/L (20.0-31.0); Chloride 102 mMol/L (98-107); Creatinine (Component) 6.4 mg/dL (0.6-1.3); Estimated Creatinine Clearance 10.8 mL/min (>60); Globulin 3.4 gm/dL (2.3-3.5); Glucose 110 mg/dL (74-106); Osmolality,Calculated 286 (275-295); Potassium 4.0 mMol/L (3.4-5.1); Sodium 139 mMol/L (136-145); Total Protein 6.8 gm/dL (5.7-8.2); eGFR 9 See Note
[2025-04-04 08:39] LABS: Magnesium 2.1 mg/dL (1.6-2.6); Phosphorous 5.3 mg/dL (2.4-5.1)
[2025-04-04 09:53] LABS: HIV (1&2) Antibody Rapid Non-Reactive
--- NOTE | 2025-04-04 09:56 | ESPR_ITS ---
Documentation for date of: 04/04/25 Subjective Subjective Interval history: Reason for consult: ESRD on HD History of present illness: Mr. Dwyer is a 69-year-old male with a past medical history of end-stage renal disease on hemodialysis, atrial fibrillation, congestive heart failure (EF ~40?55%), hypertension, prior stroke (5 years ago), chronic back pain, and recent bacteremia on rifampin, who presented from [facility] with altered mental status after returning from dialysis on 04/01/2025. Per caregiver, the patient was lethargic post-dialysis, noted to desaturate to 83% on room air, and was placed on supplemental O2 with improvement to 93%. At baseline, the patient is reportedly alert and oriented ?3 and takes his medications independently. He was recently admitted two weeks ago for acute hypoxic respiratory failure due to pneumonia, during which he was treated for Staphylococcus aureus bacteremia and discharged on rifampin. On current admission, workup showed dense right upper lobe pneumonia with right basilar infiltrate, mild heart failure, and pCO2 50 with compensatory HCO3 31 (ABG pH 7.41). CT head negative. He was started on azithromycin and ceftriaxone in the ED and remains on rifampin 300 mg PO BID. Patient currently seen awake, alert and oriented, denies chest pain, shortness of breath, or abdominal pain. Reports mild back pain consistent with baseline. Still refusing MRI. Consulted for ESRD on HD. 04/04/2025: Patient seen and evaluated this morning. Doing well overall, denies any shortness of breath, chest pain, or swelling. No overnight events. He is scheduled for dialysis today (2 L ultrafiltration goal) and will be discharged afterward per primary team plan. BP 188/95, HR 80, afebrile. Labs today: WBC 5.7, Hgb 9.1, Hct 28.4, Plt 127, Na 139, K 4.0, Cl 102, CO2 24.2, BUN 36, Cr 6.4, Glucose 110, Ca 8.1, Phos 5.3, Mg 2.1. Exam Vital Signs Temp Pulse Resp BP Pulse Ox O2 Del Method O2 Flow Rate 98.2 F 80 18 188/95 H 96 Nasal Cannula 1 04/04/25 08:25 04/04/25 09:45 04/04/25 08:25 04/04/25 09:45 04/04/25 08:25 04/04/25 08:00 04/04/25 08:25 Narrative Exam General: Awake, alert and oriented, no acute distress. HEENT: Mucous membranes moist; pupils equal and reactive. CV: Regular rate and rhythm. Resp: Diminished breath sounds right base; on 1 L NC, saturating 94%. Abdomen: Soft, non-tender, non-distended. Extremities: No edema. Access: Right subclavian tunneled dialysis catheter, site clean/dry/intact. Neuro: Moves all extremities; no focal deficits. Objective Labs 04/04/25 05:57 04/04/25 05:57 Labs: Laboratory Results - last 24 hr 04/03/25 04/04/25 17:40 05:57 WBC 5.7 RBC 2.77 L Hgb 9.1 L Hct 28.4 L MCV 103 H MCH 32.9 MCHC 32.0 RDW Std Deviation 61.2 H Plt Count 127 L Neut % (Auto) 73 Lymph % (Auto) 14 [place] % (Auto) 9 Eos % (Auto) 3 Baso % (Auto) 1 Neut # (Auto) 4.2 Lymph # (Auto) 0.8 L [place] # (Auto) 0.5 Eos # (Auto) 0.2 Baso # (Auto) 0.0 Immature Gran # (Auto) 0.03 H Absolute Nucleated RBC 0.00 Immature Gran % 1 H Nucleated RBC % 0 Puncture Site Left Radial ABG pH 7.43 ABG pCO2 40 D ABG pO2 89 ABG HCO3 26 ABG O2 Saturation 98 ABG Base Excess 2 Oxygen Liter Flow 3 Sodium 139 Potassium 4.0 Chloride 102 Carbon Dioxide 24.2 Anion Gap 13 BUN 36 H Creatinine 6.4 H* D Estim Creat Clear Calc 10.8 L eGFR 9 L* BUN/Creatinine Ratio 6 L Glucose 110 H Calculated Osmolality 286 Calcium 7.6 L Corrected Calcium 8.1 L Phosphorus 5.3 H Magnesium 2.1 Total Bilirubin 0.5 AST 39 H ALT < 7 L Alkaline Phosphatase 53 Total Protein 6.8 Albumin 3.4 Globulin 3.4 Albumin/Globulin Ratio 1.0 L HIV 1&2 Antibody Rapid Non-Reactive ABG Interpretation ABG results: 04/01/25 04/01/25 04/03/25 18:20 23:33 17:40 ABG pH 7.41 7.43 ABG pCO2 50 H 40 D ABG pO2 94 89 ABG HCO3 31 H 26 ABG O2 Saturation 98 98 ABG Base Excess 6 H 2 VBG pH 7.46 VBG pCO2 48 VBG pO2 28 VBG Base Excess 9 H Quality Measures Quality Measures VTE prophylaxis Advance care planning discussed with:: patient Assessment & Plan Assessment Current Active Medications: Generic Name Dose Route Start Last Admin Trade Name Freq PRN Reason Stop Dose Admin Acetaminophen 1,000 mg 04/04/25 07:45 Acetaminophen 500 Mg Tablet PO 05/01/25 23:07 Q6H PRN Fever >100.3, pain 1-3 Hydrocodone Bitart/Acetaminophen 1 tab 04/02/25 19:35 04/04/25 05:38 Hydrocodone/Apap 5/325 Tablet PO 04/07/25 19:34 1 tab Q6HR PRN Administration Pain 4-8 Albuterol/Ipratropium 3 ml 04/03/25 17:57 04/04/25 06:45 Albuterol/Ipratropium (Duoneb) Rt Bianka 3 Ml Nebu INH 05/03/25 17:56 3 ml Q4HRRT REEMA Administration Amiodarone HCl 200 mg 04/02/25 09:00 04/03/25 20:15 Amiodarone Hcl 200 Mg Tablet PO 05/02/25 08:59 200 mg BID REEMA Administration Apixaban 5 mg 04/02/25 09:00 04/03/25 08:57 Apixaban 2.5 Mg Tablet PO 05/02/25 08:59 5 mg DAILY REEMA Administration Atorvastatin Calcium 20 mg 04/02/25 21:00 04/03/25 20:05 Atorvastatin Calcium 20 Mg Tablet PO 05/02/25 20:59 20 mg HS REEMA Administration Carvedilol 6.25 mg 04/04/25 08:00 Carvedilol 3.125 Mg Tablet PO 05/02/25 08:59 BIDWM REEMA Epoetin Ravi 10,000 unit 04/04/25 11:15 Epoetin Ravi-Epbx Inj 10,000 Unit/Ml Vial (Esrd) SC 04/04/25 11:16 X1 ONE Escitalopram Oxalate 10 mg 04/02/25 09:00 04/03/25 08:57 Escitalopram Oxalate 10 Mg Tablet PO 05/02/25 08:59 10 mg QDAY REEMA Administration Hydroxyzine HCl 25 mg 04/02/25 10:10 04/04/25 04:53 Hydroxyzine Hcl 25 Mg Tablet PO 05/02/25 10:09 25 mg Q6HR PRN Administration ANXIETY Azithromycin 500 mg/ Sodium 250 mls @ 250 mls/hr 04/02/25 09:00 04/03/25 08:57 Chloride IV 04/09/25 08:59 250 mls/hr QDAY REEMA Administration Ceftriaxone Sodium/Dextrose 1 gm in 50 mls @ 100 mls/hr 04/02/25 09:00 04/03/25 08:57 Rocephin/D5w 1gm Iv Premix IV 04/09/25 08:59 100 mls/hr QDAY REEMA Administration Ondansetron HCl 4 mg 04/01/25 23:08 Ondansetron Inj 2 Mg/Ml Inj 2 Ml IVP 05/01/25 23:07 Q6H PRN NAUSEA OR VOMITING Protocol Rifampin 300 mg 04/02/25 09:00 04/03/25 20:05 Rifampin 300 Mg Capsule PO 05/02/25 08:59 300 mg BID REEMA Administration Plan 69-year-old male with ESRD on HD, CHF, CAD, and prior Staphylococcus aureus bacteremia. Clinically stable, no acute complaints, scheduled for dialysis today and discharge afterward. # ESRD on Hemodialysis Chronic ESRD on HD (Friday/Friday/Friday). Last session 04/01/25. Stable; planned HD today. Plan: * Proceed with HD today (UF goal 2 L). * Strict I/O monitoring, daily weight, avoid nephrotoxins. * Monitor electrolytes and volume status daily. * Post-HD discharge per primary team. Other active problems: #Pneumonia #Altered mental status #Atrial fibrillation #Congestive heart failure #Hypertension #Chronic back pain #History of stroke #Anxiety / depression Management per primary team ----- Plan discussed with attending physician Dr. Everette Pickett MD PGY-1 Internal Medicine Attending Provider Attestation/Addendum Patient currently seen and examined with resident physician Dr. Pickett. Note reviewed, agree with findings and recommendations. Patient currently seen on dialysis. Tolerating dialysis without any problems. Hemodialysis for 3 hours, 2K, ultrafiltration 2-3 L, Epogen 6000, no heparin ordered. Plan of care discussed with the dialysis nurse. Please see dialysis flowsheet for further details.
--- NOTE | 2025-04-04 10:32 | ESDS_ITS ---
<Statement entered by Soraida Charles MD - 04/04/25 17:31> I reviewed above note and agree with findings and plans. I have also personally examined the patient with medicine team and went over assessment and plan with medical team including international organizer and resident physician. Planned Discharge Date 04/04/25 DS: Providers Provider Date of admission: 04/01/25 23:09 Primary care physician: Physician No Primary/Family Admitting Provider: Stephania Mcmanus MD Attending Provider on Admission: Stephania Mcmanus MD Consults: 04/02/25 01:06 Consult to Nephrology Routine Comment: ESRD on hemodialysis Consulting Provider: Britt Gaviria 04/02/25 01:07 Consult to Neurology / Tele-Neurology Routine Comment: Altered mental status, stroke 5 years ago Consulting Provider: Andrés Salguero Attending Provider on DC: Mya Miles DO Discharging Provider: Mya Miles DO DS: Diagnosis Problem List Completed Was Problem List Reviewed/Reconciled?: Yes Hospital Course Hospital Course Hospital course: Summary: 69-year-old male with a past medical history of A-fib, CHF, hypertension, ESRD on dialysis, chronic back pain, and a previous stroke 5 years ago presented today from [facility] with altered mental status. Patient was admitted for his altered mental status. Patient was put on nasal cannula to increase oxygen saturation to 97%, given IV antibiotics, and continued his home medication. Counseled on cessation of norco as this medication likely has contributed to his altered mental status and hypoxia. ED course: Vitals on arrival: BP 117/60, pulse 71, respiratory rate 18, temp 97.8, saturating at 97% on 1.5 L nasal cannula. Notable labs: Hemoglobin 9.1, hematocrit 28.2, MCV 102, creatinine 3.8, BNP 432. ABG showed a pH of 7.41, pCO2 of 50, pO2 94, HCO3 of 31. Imaging: Chest x-ray showed extensive right lung pneumonia, mild associated heart failure. EKG shows sinus rhythm with a rate of 69. Head CT negative. Chest CT showed dense opacity in the right upper lobe most consistent with pneumonic consolidation, there is a right base pneumonia, mild heart failure. In the ED, the patient was placed on supplemental oxygen and given a dose of azithromycin, hydrocodone, morphine, ceftriaxone, and albuterol treatment, and started on a sodium chloride drip at 50 mL/h. Hospital Course: Upon admission to the hospital, neurology was consulted.? Started on rifampin 300 mg p.o. twice daily, azithromycin 500 mg IV daily, ceftriaxone 1 g IV daily.? Continued his home medication Eliquis 5 mg p.o. daily, amiodarone 200 mg p.o. twice daily, carvedilol 6.25 mg p.o. twice daily. ??Per caregiver, he desaturated to 83% oxygen on room air at the rehab center. He was put on nasal cannula and titrated supplemental oxygen to saturation of 97%. Blood culture was negative for 48hrs x2.? Patient was counseled on cessation of [place] as this medication has likely contributed to lower his respiratory drive at the SNF, causing hypoxia.? Patient continues to adamantly reject MRI for his lower back pain.? Patient has been discharged after dialysis session on 04/04. Instructions: Stop taking hydrocodone for breakthrough pain and instead ask your PCP to refer you to a pain specialist and take [id number] pain medication such as Tylenol instead Continue IV antibiotic regimen with dialysis session, cefazolin 2 g with dialysis along with the rifampin 300 mg by mouth twice a day until 06/03/2025 Please continue all other home medications Continue going to all dialysis sessions as scheduled Please follow-up with your PCP within 1 week of discharge or follow-up at the [facility] [address] [place] [address] If your symptoms worsen or if you develop new shortness of breath, chest pain, severe headache or loss of consciousness - please come back to the ED immediately #Acute Encephalopathy, resolved #Acute Hypoxic Respiratory Failure #Pneumonia (Right Upper and Lower Lobes) #History of Bacteremia (possible CRBSI, on chronic rifampin) #Hx of Paroxysmal A-fib, rate controlled #ESRD on dialysis #Chronic back pain #Anxiety #Hyperlipidemia Assessment and plan discussed with my attending physician Dr. Charles and Dr. Monroe (PGY-3) Dr. Miles (PGY-1) - Internal medicine resident Status at Discharge Overall status at discharge: patient is progressing back to baseline Time Spent with Patient Time attestation: Total time spent providing and/or coordinating discharge services: Time spent: Greater than 30 minutes Exam Vital Signs Temp Pulse Resp BP Pulse Ox O2 Del Method O2 Flow Rate 98.2 F 88 18 191/110 H 96 Nasal Cannula 1 04/04/25 08:25 04/04/25 10:30 04/04/25 08:25 04/04/25 10:30 04/04/25 08:25 04/04/25 08:00 04/04/25 08:25 Narrative Exam General: Awake, alert and oriented, no acute distress. HEENT: Mucous membranes moist; pupils equal and reactive. CV: Regular rate and rhythm. Resp: Diminished breath sounds right base; on 1 L NC, saturating 99%. Abdomen: Soft, non-tender, non-distended. Extremities: No edema. Access: Right subclavian tunneled dialysis catheter, site clean/dry/intact. Neuro: Moves all extremities; no focal deficits. Discharge Plan Plan Patient Disposition: Xfer Skilled Nsg Fac (SNF) Care Plan Goals: Stop taking hydrocodone for breakthrough pain and instead ask your PCP to refer you to a pain specialist and take [id number]-[id number] pain medication such as Tylenol instead Continue IV antibiotic regimen with dialysis session, cefazolin 2 g with dialysis along with the rifampin 300 mg by mouth twice a day until 06/03/2025 Please continue all other home medications Continue going to all dialysis sessions as scheduled Please follow-up with your PCP within 1 week of discharge or follow-up at the [facility] [address] [place] [address] If your symptoms worsen or if you develop new shortness of breath, chest pain, severe headache or loss of consciousness - please come back to the ED immediately Prescriptions/Referrals Prescriptions/Med Rec: Continued cyclobenzaprine 10 mg tablet 10 mg PO Q8H PRN (Reason: muscle spasm) Patient Comments: TAKE ONE TABLET BY MOUTH THREE TIMES DAILY NEEDED FOR MUSCLE SPASMS carvedilol 6.25 mg tablet 6.25 mg PO Q12H Rx Instructions: hold if SBP<110 and/or DBP<60 and or HR<60bpm atorvastatin 20 mg tablet 20 mg PO .qHS Patient Comments: TAKE ONE TABLET BY MOUTH EVERY DAY FOR CHOLESTEROL acetaminophen 500 mg tablet 500 mg PO Q6H PRN (Reason: fever or pain) Patient Comments: TAKE ONE TABLET BY MOUTH EVERY 6 HOURS FOR PAIN FOR FEVER Rx Instructions: for mild pain(1-3) and/or temp 100.4 or Higher APAP NTE 3Grams/24hrs sodium bicarbonate 650 mg tablet 650 mg PO BID Patient Comments: TAKE ONE TABLET BY MOUTH TWICE DAILY ropinirole 0.5 mg tablet 0.5 mg PO QDAY Patient Comments: TAKE ONE TABLET BY MOUTH 1-3 HOURS BEFORE bedtime gabapentin 300 mg capsule 300 mg PO BID Patient Comments: 1 capsule by mouth every morning and at bedtime calcium acetate(phosphat bind) 667 mg capsule 667 mg PO BID Patient Comments: TAKE ONE CAPSULE BY MOUTH THREE TIMES DAILY WITH FOOD Rx Instructions: administer with meals sevelamer carbonate 800 mg tablet 800 mg PO TIDWMEAL Patient Comments: TAKE ONE TABLET BY MOUTH THREE TIMES DAILY WITH FOOD diclofenac sodium 1 % gel 2.25 inch TOPICAL Q8H PRN (Reason: pain) Rx Instructions: apply to affected area topically every 8 hours as needed for Chronic Pain Eliquis 5 mg tablet 5 mg PO BID amiodarone 200 mg tablet 200 mg PO BID Rx Instructions: hold if HR<60BPM escitalopram oxalate [Lexapro] 10 mg tablet 10 mg PO QDAY Rx Instructions: agitated depression m/b episodes of Restlessness lisinopril 5 mg tablet 5 mg PO QDAY Rx Instructions: Hold if SBP <110 and/or DBP<60 rifampin 300 mg capsule 300 mg PO BID Rx Instructions: give by mouth every morning and at bedtime for bacteremia for 6weeks clonazepam [Klonopin] 2 mg tablet 2 mg PO Q8H PRN (Reason: Axiety) Rx Instructions: m/b Inability to relax diltiazem HCl [Cardizem] 30 mg tablet 30 mg PO Q6H Rx Instructions: HOLD IF SBP<110 AND/OR DBP<60 AND/OR HR<60BPM Discontinued hydrocodone-acetaminophen 5-325 mg tablet 1 tab PO Q6H PRN (Reason: pain) Patient Comments: TAKE ONE TABLET BY MOUTH THREE TIMES DAILY NEEDED FOR PAIN Rx Instructions: moderate to severe pain(4-10) APAP NTE 3grams/24hours Referrals: No Primary/Family,Physician [Primary Care Provider] Patient/Caregiver Discharge Instructions Print Language: Rwandan Stand Alone Forms: Janelle Award Info., Patient Portal Info Letter Discharge Order Discharge Orders: Discharge (Routine); Ordered 04/03/25 Ordered By: Ricky Adkins Quality Discharge Quality Measures VTE prophylaxis
[2025-04-04] MEDS: EPOETIN ALFA-EPBX INJ 10,000 UNIT/ML VIAL (ESRD) 10000 UNIT SC (11:03)
--- NOTE | 2025-04-04 11:51 | PC.SS ---
Follow up note: SS received to from Lily at [facility] who explained she has communicated with [employer], patient's health insurance who expained since pt has been out of [facility] for more than 24 hours new insurance authorization is required. SS has sent updated inquiry to [facility] using [employer]'. PT notes are still pending.
[2025-04-04] MEDS: HEPARIN SOD INJ 1000 UNIT/ML VIAL 10 ML 4300 UNIT INDWELLCAT (12:00)
[2025-04-04] MEDS: cefTRIAXone/D5w 1gm IV premix 1 GM/50 ML BAG IV (12:49)
[2025-04-04] MEDS: APIXABAN 2.5 MG TABLET 5 MG PO (12:52)
[2025-04-04] MEDS: AMIODARONE HCL 200 MG TABLET PO ×2 (12:53→20:41)
[2025-04-04] MEDS: AZITHROMYCIN INJ 500 MG in SODIUM CHLORIDE 0.9% 250 ML 250 ML 250 MG IV (12:54)
[2025-04-04] MEDS: ESCITALOPRAM OXALATE 10 MG TABLET PO (12:54)
[2025-04-04 14:39] LABS: Cocci Serology, IgM Negative (Negative)
[2025-04-04] MEDS: DILTIAZEM 30 MG TABLET PO ×2 (15:20→20:41)
--- NOTE | 2025-04-04 15:20 | ESPR_ITS ---
Documentation for date of: 04/04/25 Subjective Subjective Interval history: Patient examined at bedside. Blood pressure elevated 172/95, hemoglobin 9.1 glucose 110, cocci IgM negative, HIV test nonreactive. Patient continues to refuse MRI. He is alert and oriented x 3. Denies any headache, weakness, numbness, dysphagia. Dialysis session today with no complications. Denies any shortness of breath. Decrease Notus at time of discharge and patient to follow- up with specialist for chronic pain management. Exam Vital Signs Temp Pulse Resp BP Pulse Ox O2 Del Method O2 Flow Rate 98.2 F 92 17 172/95 H 99 Nasal Cannula 1 04/04/25 11:34 04/04/25 15:20 04/04/25 14:51 04/04/25 15:20 04/04/25 14:51 04/04/25 08:00 04/04/25 11:34 Narrative Exam General: Awake, alert and oriented, no acute distress. HEENT: Mucous membranes moist; pupils equal and reactive. CV: Regular rate and rhythm. Resp: Diminished breath sounds right base; on 1 L NC, saturating 99%. Abdomen: Soft, non-tender, non-distended. Extremities: No edema. Access: Right subclavian tunneled dialysis catheter, site clean/dry/intact. Neuro: Alert, awake and oriented x3. Cranial nerves: II through XII grossly intact. Speech and language: Normal with no dysarthria or dysphasia. Motor system: Tone and bulk: Normal: Strength: 5 out of 5 in all 4 extremities; No pronator drift noted. Deep tendon reflexes: 2+ bilaterally symmetrical. Plantar reflex: Downgoing bilaterally. Sensory system: Intact to all modalities of sensation bilaterally. Coordination: Intact to qhchdk-ozjl-muzkv and knyf-jnqs-gyqe test bilaterally. No ataxia, no dysmetria, or dysdiadochokinesia noted. No intention tremors noted. Gait: Not tested. No signs of meningeal irritation noted. Objective Labs 04/06/25 04:34 04/06/25 04:34 Labs: Laboratory Results - last 24 hr 04/03/25 04/04/25 17:40 05:57 WBC 5.7 RBC 2.77 L Hgb 9.1 L Hct 28.4 L MCV 103 H MCH 32.9 MCHC 32.0 RDW Std Deviation 61.2 H Plt Count 127 L Neut % (Auto) 73 Lymph % (Auto) 14 [place] % (Auto) 9 Eos % (Auto) 3 Baso % (Auto) 1 Neut # (Auto) 4.2 Lymph # (Auto) 0.8 L [place] # (Auto) 0.5 Eos # (Auto) 0.2 Baso # (Auto) 0.0 Immature Gran # (Auto) 0.03 H Absolute Nucleated RBC 0.00 Immature Gran % 1 H Nucleated RBC % 0 Puncture Site Left Radial ABG pH 7.43 ABG pCO2 40 D ABG pO2 89 ABG HCO3 26 ABG O2 Saturation 98 ABG Base Excess 2 Oxygen Liter Flow 3 Sodium 139 Potassium 4.0 Chloride 102 Carbon Dioxide 24.2 Anion Gap 13 BUN 36 H Creatinine 6.4 H* D Estim Creat Clear Calc 10.8 L eGFR 9 L* BUN/Creatinine Ratio 6 L Glucose 110 H Calculated Osmolality 286 Calcium 7.6 L Corrected Calcium 8.1 L Phosphorus 5.3 H Magnesium 2.1 Total Bilirubin 0.5 AST 39 H ALT < 7 L Alkaline Phosphatase 53 Total Protein 6.8 Albumin 3.4 Globulin 3.4 Albumin/Globulin Ratio 1.0 L Coccidioides IgM Ab Negative HIV 1&2 Antibody Rapid Non-Reactive ABG Interpretation ABG results: 04/01/25 04/01/25 04/03/25 18:20 23:33 17:40 ABG pH 7.41 7.43 ABG pCO2 50 H 40 D ABG pO2 94 89 ABG HCO3 31 H 26 ABG O2 Saturation 98 98 ABG Base Excess 6 H 2 VBG pH 7.46 VBG pCO2 48 VBG pO2 28 VBG Base Excess 9 H Quality Measures Quality Measures VTE prophylaxis Advance care planning discussed with:: patient Assessment & Plan Assessment Current Active Medications: Generic Name Dose Route Start Last Admin Trade Name Freq PRN Reason Stop Dose Admin Acetaminophen 1,000 mg 04/04/25 07:45 Acetaminophen 500 Mg Tablet PO 05/01/25 23:07 Q6H PRN Fever >100.3, pain 1-3 Hydrocodone Bitart/Acetaminophen 1 tab 04/02/25 19:35 04/04/25 12:52 Hydrocodone/Apap 5/325 Tablet PO 04/07/25 19:34 1 tab Q6HR PRN Administration Pain 4-8 Albuterol/Ipratropium 3 ml 04/03/25 17:57 04/04/25 14:51 Albuterol/Ipratropium (Duoneb) Rt Bianka 3 Ml Nebu INH 05/03/25 17:56 3 ml Q4HRRT REEMA Administration Amiodarone HCl 200 mg 04/02/25 09:00 04/04/25 12:53 Amiodarone Hcl 200 Mg Tablet PO 05/02/25 08:59 200 mg BID REEMA Administration Apixaban 5 mg 04/02/25 09:00 04/04/25 12:52 Apixaban 2.5 Mg Tablet PO 05/02/25 08:59 5 mg DAILY REEMA Administration Atorvastatin Calcium 20 mg 04/02/25 21:00 04/03/25 20:05 Atorvastatin Calcium 20 Mg Tablet PO 05/02/25 20:59 20 mg HS REEMA Administration Carvedilol 6.25 mg 04/04/25 08:00 04/04/25 14:11 Carvedilol 3.125 Mg Tablet PO 05/02/25 08:59 Not Given BIDWM REEMA Diltiazem HCl 30 mg 04/04/25 15:15 04/04/25 15:20 Diltiazem 30 Mg Tablet PO 05/04/25 15:14 30 mg Q6H REEMA Administration Escitalopram Oxalate 10 mg 04/02/25 09:00 04/04/25 12:54 Escitalopram Oxalate 10 Mg Tablet PO 05/02/25 08:59 10 mg QDAY REEMA Administration Heparin Sodium (Porcine) 4,300 unit 04/04/25 11:58 04/04/25 12:00 Heparin Sod Inj 1000 Unit/Ml Vial 10 Ml INDWELLCAT 04/18/25 11:57 4,300 unit X1 PRN Administration DIALYSIS Hydralazine HCl 10 mg 04/04/25 15:07 Hydralazine Inj 20 Mg/Ml Vial IVP 05/04/25 15:14 Q6H PRN hypertention Hydroxyzine HCl 25 mg 04/02/25 10:10 04/04/25 04:53 Hydroxyzine Hcl 25 Mg Tablet PO 05/02/25 10:09 25 mg Q6HR PRN Administration ANXIETY Azithromycin 500 mg/ Sodium 250 mls @ 250 mls/hr 04/02/25 09:00 04/04/25 12:54 Chloride IV 04/09/25 08:59 250 mls/hr QDAY REEMA Administration Ceftriaxone Sodium/Dextrose 1 gm in 50 mls @ 100 mls/hr 04/02/25 09:00 04/04/25 12:49 Rocephin/D5w 1gm Iv Premix IV 04/09/25 08:59 100 mls/hr QDAY EREMA Administration Lisinopril 5 mg 04/05/25 09:00 Lisinopril 2.5 Mg Tablet PO 05/05/25 08:59 QDAY REEMA Ondansetron HCl 4 mg 04/01/25 23:08 Ondansetron Inj 2 Mg/Ml Inj 2 Ml IVP 05/01/25 23:07 Q6H PRN NAUSEA OR VOMITING Protocol Rifampin 300 mg 04/02/25 09:00 04/04/25 12:52 Rifampin 300 Mg Capsule PO 05/02/25 08:59 300 mg BID REEMA Administration Plan 69-year-old male with a past medical history of A-fib, CHF, hypertension, ESRD on dialysis, chronic back pain, and a previous stroke 5 years ago presented today from [facility] with altered mental status. Patient was admitted for his altered mental status. #Acute Encephalopathy, resolved #Hyperlipidemia 2/2 to polypharmacy and overuse of pain meds Per caregiver at acute rehab facility, the patient was lethargic on the day of admission and below his baseline mental status ABG showed a pCO2 of 50 and a bicarb of 31, pH was 7.[address] negative Ammonia negative Per the rehab facility, the patient is being treated for bacteremia with rifampin Plan: -Titrate supplemental oxygen to a saturation of 97% -Adjust pain meds prior to d/c - Continue home atorvastatin 20 mg p.o. nightly #Acute Hypoxic Respiratory Failure #Pneumonia (Right Upper and Lower Lobes) #History of Bacteremia (possible CRBSI, on chronic rifampin) #Hx of Paroxysmal A-fib, rate controlled #ESRD on dialysis #Chronic back pain #Anxiety Primary care team to manage above conditions and ongoing care needs. The patient's management plan was discussed with my attending physician Dr. Salguero. Carol Jimenez, PGY-2 Attending Provider Attestation/Addendum I personally have seen and examined the patient at the bedside and I agreed with the resident's findings, assessment and plan of care. Patient presented with altered mental status which is resolved and is back to baseline. He is waiting for placement
[2025-04-04] MEDS: ATORVASTATIN CALCIUM 20 MG TABLET PO (20:41)
[2025-04-05] VITALS (18 sets, daily range): BP systolic 121–165; BP diastolic 71–93; PULSE 77–93; RESP 12–22; TEMP 36.6–37.3; O2SAT 93–100; BMI 23.2; BMI 13.0
[2025-04-05] MEDS: ALBUTEROL/IPRATROPIUM (Duoneb) RT SOL 3 ML NEBU INH ×6 (02:41→22:47)
[2025-04-05] MEDS: cefTRIAXone/D5w 1gm IV premix 1 GM/50 ML BAG IV (08:17)
[2025-04-05] MEDS: HYDROcodone/APAP 5/325 TABLET 1 TAB PO ×3 (08:20→21:12)
[2025-04-05] MEDS: APIXABAN 2.5 MG TABLET 5 MG PO (08:20)
[2025-04-05] MEDS: ESCITALOPRAM OXALATE 10 MG TABLET PO (08:22)
[2025-04-05] MEDS: AMIODARONE HCL 200 MG TABLET PO ×2 (08:23→20:29)
--- NOTE | 2025-04-05 08:44 | ESPR_ITS ---
<Statement entered by Christen Monroe MD - 04/05/25 16:05> Examined at bedside. No acute overnight events. Patient will continue having hemodialysis session patient and get IV antibiotics during hemodialysis session. Pending insurance authorization for SNF placement. I discussed with and supervised the financial services internship physician who took care of this patient. I personally saw and examined the patient and discussed the assessment and plan with the entire medicine team, including my attending , I agree with the assessment and plan as documented below Christen Monroe M.D. PGY-3 Disclaimer: Despite multiple revisions, due to the dictation software being used, the document bellow may not be free of grammatical errors including phonetic/typographic errors. However, this does not deter from our commitment to providing health care in the patient's best interest in mind. Documentation for date of: 04/05/25 Subjective Subjective Interval history: Patient was failed to be discharged yesterday. Pending Insurance authorization. Will need to do dialysis tomorrow if not discharged today. Exam Vital Signs Temp Pulse Resp BP Pulse Ox O2 Del Method O2 Flow Rate 98.1 F 93 16 165/89 H 93 L Room Air 1 04/05/25 08:00 04/05/25 08:23 04/05/25 08:00 04/05/25 08:23 04/05/25 08:00 04/05/25 08:00 04/04/25 11:34 Narrative Exam General: Awake, alert and oriented, no acute distress. HEENT: Mucous membranes moist; pupils equal and reactive. CV: Regular rate and rhythm. Resp: Diminished breath sounds right base; on 1 L NC, saturating 99%. Abdomen: Soft, non-tender, non-distended. Extremities: No edema. Access: Right subclavian tunneled dialysis catheter, site clean/dry/intact. Neuro: Moves all extremities; no focal deficits. Objective Labs 04/06/25 04:34 04/06/25 04:34 Labs: Laboratory Results - last 24 hr 04/04/25 05:57 Coccidioides IgM Ab Negative HIV 1&2 Antibody Rapid Non-Reactive ABG Interpretation ABG results: 04/01/25 04/01/25 04/03/25 18:20 23:33 17:40 ABG pH 7.41 7.43 ABG pCO2 50 H 40 D ABG pO2 94 89 ABG HCO3 31 H 26 ABG O2 Saturation 98 98 ABG Base Excess 6 H 2 VBG pH 7.46 VBG pCO2 48 VBG pO2 28 VBG Base Excess 9 H Quality Measures Quality Measures VTE prophylaxis Advance care planning discussed with:: patient Assessment & Plan Assessment Current Active Medications: Generic Name Dose Route Start Last Admin Trade Name Freq PRN Reason Stop Dose Admin Acetaminophen 1,000 mg 04/04/25 07:45 Acetaminophen 500 Mg Tablet PO 05/01/25 23:07 Q6H PRN Fever >100.3, pain 1-3 Hydrocodone Bitart/Acetaminophen 1 tab 04/02/25 19:35 04/05/25 08:20 Hydrocodone/Apap 5/325 Tablet PO 04/07/25 19:34 1 tab Q6HR PRN Administration Pain 4-8 Albuterol/Ipratropium 3 ml 04/03/25 17:57 04/05/25 06:37 Albuterol/Ipratropium (Duoneb) Rt Bianka 3 Ml Nebu INH 05/03/25 17:56 3 ml Q4HRRT REEMA Administration Amiodarone HCl 200 mg 04/02/25 09:00 04/05/25 08:23 Amiodarone Hcl 200 Mg Tablet PO 05/02/25 08:59 200 mg BID REEMA Administration Apixaban 5 mg 04/02/25 09:00 04/05/25 08:20 Apixaban 2.5 Mg Tablet PO 05/02/25 08:59 5 mg DAILY REEMA Administration Atorvastatin Calcium 20 mg 04/02/25 21:00 04/04/25 20:41 Atorvastatin Calcium 20 Mg Tablet PO 05/02/25 20:59 20 mg HS REEMA Administration Carvedilol 6.25 mg 04/04/25 08:00 04/05/25 08:22 Carvedilol 3.125 Mg Tablet PO 05/02/25 08:59 6.25 mg BIDWM REEMA Administration Diltiazem HCl 30 mg 04/04/25 15:15 04/05/25 03:41 Diltiazem 30 Mg Tablet PO 05/04/25 15:14 Not Given Q6H REEMA Escitalopram Oxalate 10 mg 04/02/25 09:00 04/05/25 08:22 Escitalopram Oxalate 10 Mg Tablet PO 05/02/25 08:59 10 mg QDAY REEMA Administration Heparin Sodium (Porcine) 4,300 unit 04/04/25 11:58 04/04/25 12:00 Heparin Sod Inj 1000 Unit/Ml Vial 10 Ml INDWELLCAT 04/18/25 11:57 4,300 unit X1 PRN Administration DIALYSIS Hydralazine HCl 10 mg 04/04/25 15:07 Hydralazine Inj 20 Mg/Ml Vial IVP 05/04/25 15:14 Q6H PRN hypertention Hydroxyzine HCl 25 mg 04/02/25 10:10 04/04/25 20:46 Hydroxyzine Hcl 25 Mg Tablet PO 05/02/25 10:09 25 mg Q6HR PRN Administration ANXIETY Azithromycin 500 mg/ Sodium 250 mls @ 250 mls/hr 04/02/25 09:00 04/04/25 22:08 Chloride IV 04/09/25 08:59 Infused QDAY REEMA Infusion Ceftriaxone Sodium/Dextrose 1 gm in 50 mls @ 100 mls/hr 04/02/25 09:00 04/05/25 08:17 Rocephin/D5w 1gm Iv Premix IV 04/09/25 08:59 100 mls/hr QDAY REEMA Administration Lisinopril 5 mg 04/05/25 09:00 04/05/25 08:21 Lisinopril 2.5 Mg Tablet PO 05/05/25 08:59 5 mg QDAY REEMA Administration Ondansetron HCl 4 mg 04/01/25 23:08 Ondansetron Inj 2 Mg/Ml Inj 2 Ml IVP 05/01/25 23:07 Q6H PRN NAUSEA OR VOMITING Protocol Rifampin 300 mg 04/02/25 09:00 04/05/25 08:22 Rifampin 300 Mg Capsule PO 05/02/25 08:59 300 mg BID REEMA Administration Plan Summary: 69-year-old male with a past medical history of A-fib, CHF, hypertension, ESRD on dialysis, chronic back pain, and a previous stroke 5 years ago presented today from [facility] with altered mental status. Patient was admitted for his altered mental status. Patient was put on nasal cannula to increase oxygen saturation to 97%, given IV antibiotics, and continued his home medication. Counseled on cessation of norco as this medication likely has contributed to his altered mental status and hypoxia. ED course: Vitals on arrival: BP 117/60, pulse 71, respiratory rate 18, temp 97.8, saturating at 97% on 1.5 L nasal cannula. Notable labs: Hemoglobin 9.1, hematocrit 28.2, MCV 102, creatinine 3.8, BNP 432. ABG showed a pH of 7.41, pCO2 of 50, pO2 94, HCO3 of 31. Imaging: Chest x-ray showed extensive right lung pneumonia, mild associated heart failure. EKG shows sinus rhythm with a rate of 69. Head CT negative. Chest CT showed dense opacity in the right upper lobe most consistent with pneumonic consolidation, there is a right base pneumonia, mild heart failure. In the ED, the patient was placed on supplemental oxygen and given a dose of azithromycin, hydrocodone, morphine, ceftriaxone, and albuterol treatment, and started on a sodium chloride drip at 50 mL/h. Hospital Course: Upon admission to the hospital, neurology was consulted.? Started on rifampin 300 mg p.o. twice daily, azithromycin 500 mg IV daily, ceftriaxone 1 g IV daily.? Continued his home medication Eliquis 5 mg p.o. daily, amiodarone 200 mg p.o. twice daily, carvedilol 6.25 mg p.o. twice daily. ??Per caregiver, he desaturated to 83% oxygen on room air at the rehab center. He was put on nasal cannula and titrated supplemental oxygen to saturation of 97%. Blood culture was negative for 48hrs x2.? Patient was counseled on cessation of [place] as this medication has likely contributed to lower his respiratory drive at the SNF, causing hypoxia.? Patient continues to adamantly reject MRI for his lower back pain.? Patient has been discharged after dialysis session on 04/04. Instructions: Stop taking hydrocodone for breakthrough pain and instead ask your PCP to refer you to a pain specialist and take urmc-wib-nloiell pain medication such as Tylenol instead Continue IV antibiotic regimen with dialysis session, cefazolin 2 g with dialysis along with the rifampin 300 mg by mouth twice a day until 06/03/2025 Please continue all other home medications Continue going to all dialysis sessions as scheduled Please follow-up with your PCP within 1 week of discharge or follow-up at the [facility] 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 Melo and Dr. Monroe (PGY-3) Dr. Miles (PGY-1) - Internal medicine resident Attending Provider Attestation/Addendum I have examined the patient, reviewed labs and imaging findings, discussed the case with the resident(s), and reviewed entered orders. I agree with the plan of care as outlined in this note. Dr. Lorie MD
[2025-04-05] MEDS: AZITHROMYCIN INJ 500 MG in SODIUM CHLORIDE 0.9% 250 ML 250 ML 250 MG IV (09:11)
[2025-04-05] MEDS: DILTIAZEM 30 MG TABLET PO ×3 (09:11→20:29)
--- NOTE | 2025-04-05 09:17 | PC.SS ---
SS has sent PT notes and d/c summary to [facility] using [email or web address] [facility]. SS communicated with Lily at [facility] who states she will send information to patient's health insurance for authorization.
--- NOTE | 2025-04-05 10:44 | ESPR_ITS ---
Documentation for date of: 04/05/25 Subjective Subjective Interval history: Reason for consult: ESRD on HD History of present illness: Mr. Dwyer is a 69-year-old male with a past medical history of end-stage renal disease on hemodialysis, atrial fibrillation, congestive heart failure (EF ~40?55%), hypertension, prior stroke (5 years ago), chronic back pain, and recent bacteremia on rifampin, who presented from [facility] with altered mental status after returning from dialysis on 04/01/2025. Per caregiver, the patient was lethargic post-dialysis, noted to desaturate to 83% on room air, and was placed on supplemental O2 with improvement to 93%. At baseline, the patient is reportedly alert and oriented ?3 and takes his medications independently. He was recently admitted two weeks ago for acute hypoxic respiratory failure due to pneumonia, during which he was treated for Staphylococcus aureus bacteremia and discharged on rifampin. On current admission, workup showed dense right upper lobe pneumonia with right basilar infiltrate, mild heart failure, and pCO2 50 with compensatory HCO3 31 (ABG pH 7.41). CT head negative. He was started on azithromycin and ceftriaxone in the ED and remains on rifampin 300 mg PO BID. Patient currently seen awake, alert and oriented, denies chest pain, shortness of breath, or abdominal pain. Reports mild back pain consistent with baseline. Still refusing MRI. Consulted for ESRD on HD. 04/04/2025: Patient seen and evaluated this morning. Doing well overall, denies any shortness of breath, chest pain, or swelling. No overnight events. He is scheduled for dialysis today (2 L ultrafiltration goal) and will be discharged afterward per primary team plan. BP 188/95, HR 80, afebrile. Labs today: WBC 5.7, Hgb 9.1, Hct 28.4, Plt 127, Na 139, K 4.0, Cl 102, CO2 24.2, BUN 36, Cr 6.4, Glucose 110, Ca 8.1, Phos 5.3, Mg 2.1. 04/05/2025: Patient seen today, no new complaints, and clinically unchanged from yesterday. He tolerated dialysis well yesterday with 2 L of fluid removed. He is scheduled for discharge today, but if not discharged, he will require dialysis tomorrow per his regular schedule before discharge later. BP 161/93, HR 86, afebrile. Labs: no lab drawn today. Exam Vital Signs Temp Pulse Resp BP Pulse Ox O2 Del Method O2 Flow Rate 98.1 F 86 18 161/93 H 100 Room Air 1 04/05/25 08:00 04/05/25 10:07 04/05/25 10:07 04/05/25 09:11 04/05/25 10:07 04/05/25 08:00 04/04/25 11:34 Narrative Exam General: Awake, alert and oriented, no acute distress. HEENT: Mucous membranes moist; pupils equal and reactive. CV: Regular rate and rhythm. Resp: Diminished breath sounds right base; on room air Abdomen: Soft, non-tender, non-distended. Extremities: No edema. Access: Right subclavian tunneled dialysis catheter, site clean/dry/intact. Neuro: Moves all extremities; no focal deficits. Objective Labs 04/04/25 05:57 04/04/25 05:57 Labs: Laboratory Results - last 24 hr 04/04/25 05:57 Coccidioides IgM Ab Negative ABG Interpretation ABG results: 04/01/25 04/01/25 04/03/25 18:20 23:33 17:40 ABG pH 7.41 7.43 ABG pCO2 50 H 40 D ABG pO2 94 89 ABG HCO3 31 H 26 ABG O2 Saturation 98 98 ABG Base Excess 6 H 2 VBG pH 7.46 VBG pCO2 48 VBG pO2 28 VBG Base Excess 9 H Quality Measures Quality Measures VTE prophylaxis Advance care planning discussed with:: patient Assessment & Plan Assessment Current Active Medications: Generic Name Dose Route Start Last Admin Trade Name Bonnie PRN Reason Stop Dose Admin Acetaminophen 1,000 mg 04/04/25 07:45 Acetaminophen 500 Mg Tablet PO 05/01/25 23:07 Q6H PRN Fever >100.3, pain 1-3 Hydrocodone Bitart/Acetaminophen 1 tab 04/02/25 19:35 04/05/25 08:20 Hydrocodone/Apap 5/325 Tablet PO 04/07/25 19:34 1 tab Q6HR PRN Administration Pain 4-8 Albuterol/Ipratropium 3 ml 04/03/25 17:57 04/05/25 10:07 Albuterol/Ipratropium (Duoneb) Rt Bianka 3 Ml Nebu INH 05/03/25 17:56 3 ml Q4HRRT REEMA Administration Amiodarone HCl 200 mg 04/02/25 09:00 04/05/25 08:23 Amiodarone Hcl 200 Mg Tablet PO 05/02/25 08:59 200 mg BID REEMA Administration Apixaban 5 mg 04/02/25 09:00 04/05/25 08:20 Apixaban 2.5 Mg Tablet PO 05/02/25 08:59 5 mg DAILY REEMA Administration Atorvastatin Calcium 20 mg 04/02/25 21:00 04/04/25 20:41 Atorvastatin Calcium 20 Mg Tablet PO 05/02/25 20:59 20 mg HS REEMA Administration Carvedilol 6.25 mg 04/04/25 08:00 04/05/25 08:22 Carvedilol 3.125 Mg Tablet PO 05/02/25 08:59 6.25 mg BIDWM REEMA Administration Diltiazem HCl 30 mg 04/04/25 15:15 04/05/25 09:11 Diltiazem 30 Mg Tablet PO 05/04/25 15:14 30 mg Q6H REEMA Administration Escitalopram Oxalate 10 mg 04/02/25 09:00 04/05/25 08:22 Escitalopram Oxalate 10 Mg Tablet PO 05/02/25 08:59 10 mg QDAY REEMA Administration Heparin Sodium (Porcine) 4,300 unit 04/04/25 11:58 04/04/25 12:00 Heparin Sod Inj 1000 Unit/Ml Vial 10 Ml INDWELLCAT 04/18/25 11:57 4,300 unit X1 PRN Administration DIALYSIS Hydralazine HCl 10 mg 04/04/25 15:07 Hydralazine Inj 20 Mg/Ml Vial IVP 05/04/25 15:14 Q6H PRN hypertention Hydroxyzine HCl 25 mg 04/02/25 10:10 04/04/25 20:46 Hydroxyzine Hcl 25 Mg Tablet PO 05/02/25 10:09 25 mg Q6HR PRN Administration ANXIETY Azithromycin 500 mg/ Sodium 250 mls @ 250 mls/hr 04/02/25 09:00 04/05/25 09:11 Chloride IV 04/09/25 08:59 250 mls/hr QDAY REEMA Administration Ceftriaxone Sodium/Dextrose 1 gm in 50 mls @ 100 mls/hr 04/02/25 09:00 04/05/25 08:17 Rocephin/D5w 1gm Iv Premix IV 04/09/25 08:59 100 mls/hr QDAY REEMA Administration Lisinopril 5 mg 04/05/25 09:00 04/05/25 08:21 Lisinopril 2.5 Mg Tablet PO 05/05/25 08:59 5 mg QDAY REEMA Administration Ondansetron HCl 4 mg 04/01/25 23:08 Ondansetron Inj 2 Mg/Ml Inj 2 Ml IVP 05/01/25 23:07 Q6H PRN NAUSEA OR VOMITING Protocol Rifampin 300 mg 04/02/25 09:00 04/05/25 08:22 Rifampin 300 Mg Capsule PO 05/02/25 08:59 300 mg BID REEMA Administration Plan 69-year-old male with ESRD on HD, CHF, CAD, and prior Staphylococcus aureus bacteremia, clinically stable with no new issues. Tolerated dialysis well and is scheduled for discharge today unless dialysis is required tomorrow per schedule. # ESRD on Hemodialysis Chronic ESRD on HD (Friday/Friday/Friday). Last session 04/04/25. Stable; tolerating dialysis. Plan: * Dialysis completed yesterday with 2L UF goal. * Discharge today if possible, otherwise dialysis tomorrow (04/06) per schedule. * Continue renal diet, fluid restriction, and prescribed renal medications. # Hyperphosphatemia Phos 5.3 yesterday. Plan: * Restarted home medication of sevelamer with meals * Monitor phosphate levels and encourage dietary modifications. Other active problems: #Pneumonia #Altered mental status #Atrial fibrillation #Congestive heart failure #Hypertension #Chronic back pain #History of stroke #Anxiety / depression Management per primary team ----- Plan discussed with attending physician Dr. Everette Pickett MD PGY-1 Internal Medicine Attending Provider Attestation/Addendum Patient currently seen and examined with resident physician Dr. Pickett. Note reviewed, agree with findings and recommendations. Pending placement. Next dialysis scheduled for tomorrow. Clinically seems to be much better.
[2025-04-05] MEDS: SEVELAMER CARBONATE 800 MG TABLET PO ×2 (12:22→16:41)
[2025-04-05 14:39] LABS: Cocci Serology, IgG Negative (Negative)
--- NOTE | 2025-04-05 15:10 | PC.SS ---
Addendum entered by Samina Alcantara 04/05/25 15:55: SS has called Cassidy [phone] but was only able to leave voicemail with contact information and authorization to [facility] and ref # SS has called Randipiotr Loredovez [phone] but was only able to leave voicemail with contact information and authorization to [facility] and ref# SS has called Keena [phone] but was only able to leave voicemail with contact information and authorization to [facility] and ref# Insurance authorization is pending to [facility] and pt is aware. Original Note: SS has faxed patient's health insurance d/c summary and inquiry for insurance authorization 3X (1st time faxed was not responding). SS has communicated with Lily at [facility] who states she confirmed with patient's health insurance a new authorization is required. Ref# [id number]
[2025-04-05 15:13] LABS: Hepatitis A Antibody IgM Non Reactive (Non React); Hepatitis B Core Antibody IgM Non Reactive (Non React); Hepatitis B Surface Ab Reactive (Immune) (Immune); Hepatitis B Surface Antigen Non Reactive (Non React); Hepatitis C Antibody Reactive (Non React)
--- NOTE | 2025-04-05 16:36 | PD.RESPRO ---
Documentation for date of: 04/05/25 Subjective Subjective Interval history: Patient examined at bedside. Vitals stable, labs unremarkable. Tolerating diet well. Denies any headache, weakness, or numbness. AOx3. Pending placement at SNF. Exam Vital Signs Temp Pulse Resp BP Pulse Ox O2 Del Method O2 Flow Rate 99.0 F 85 18 144/84 H 100 Room Air 1 04/05/25 12:00 04/05/25 15:15 04/05/25 15:15 04/05/25 15:08 04/05/25 15:15 04/05/25 12:00 04/04/25 11:34 Narrative Exam General: Awake, alert and oriented, no acute distress. HEENT: Mucous membranes moist; pupils equal and reactive. CV: Regular rate and rhythm. Resp: Diminished breath sounds right base; on 1 L NC, saturating 99%. Abdomen: Soft, non-tender, non-distended. Extremities: No edema. Access: Right subclavian tunneled dialysis catheter, site clean/dry/intact. Neuro: Alert, awake and oriented x3. Cranial nerves: II through XII grossly intact. Speech and language: Normal with no dysarthria or dysphasia. Motor system: Tone and bulk: Normal: Strength: 5 out of 5 in all 4 extremities; No pronator drift noted. Deep tendon reflexes: 2+ bilaterally symmetrical. Plantar reflex: Downgoing bilaterally. Sensory system: Intact to all modalities of sensation bilaterally. Coordination: Intact to gpybie-wqmk-idiuw and rlmx-ylpv-[id number] test bilaterally. No ataxia, no dysmetria, or dysdiadochokinesia noted. No intention tremors noted. Gait: Not tested. No signs of meningeal irritation noted. Objective Labs 04/06/25 04:34 04/06/25 04:34 Labs: Laboratory Results - last 24 hr 04/04/25 04/05/25 05:57 13:37 Coccidioides IgG Ab Negative Hepatitis A IgM Ab Non Reactive Hep Bs Antigen Non Reactive Hep Bs Antibody Reactive (Immune) Hep B Core IgM Ab Non Reactive Hepatitis C Antibody Reactive A ABG Interpretation ABG results: 04/01/25 04/01/25 04/03/25 18:20 23:33 17:40 ABG pH 7.41 7.43 ABG pCO2 50 H 40 D ABG pO2 94 89 ABG HCO3 31 H 26 ABG O2 Saturation 98 98 ABG Base Excess 6 H 2 VBG pH 7.46 VBG pCO2 48 VBG pO2 28 VBG Base Excess 9 H Quality Measures Quality Measures VTE prophylaxis Advance care planning discussed with:: patient Assessment & Plan Assessment Current Active Medications: Generic Name Dose Route Start Last Admin Trade Name Freq PRN Reason Stop Dose Admin Acetaminophen 1,000 mg 04/04/25 07:45 Acetaminophen 500 Mg Tablet PO 05/01/25 23:07 Q6H PRN Fever >100.3, pain 1-3 Hydrocodone Bitart/Acetaminophen 1 tab 04/02/25 19:35 04/05/25 15:08 Hydrocodone/Apap 5/325 Tablet PO 04/07/25 19:34 1 tab Q6HR PRN Administration Pain 4-8 Albuterol/Ipratropium 3 ml 04/03/25 17:57 04/05/25 15:14 Albuterol/Ipratropium (Duoneb) Rt Bianka 3 Ml Nebu INH 05/03/25 17:56 3 ml Q4HRRT REEMA Administration Amiodarone HCl 200 mg 04/02/25 09:00 04/05/25 08:23 Amiodarone Hcl 200 Mg Tablet PO 05/02/25 08:59 200 mg BID REEMA Administration Apixaban 5 mg 04/02/25 09:00 04/05/25 08:20 Apixaban 2.5 Mg Tablet PO 05/02/25 08:59 5 mg DAILY REEMA Administration Atorvastatin Calcium 20 mg 04/02/25 21:00 04/04/25 20:41 Atorvastatin Calcium 20 Mg Tablet PO 05/02/25 20:59 20 mg HS REEMA Administration Carvedilol 6.25 mg 04/04/25 08:00 04/05/25 08:22 Carvedilol 3.125 Mg Tablet PO 05/02/25 08:59 6.25 mg BIDWM REEMA Administration Diltiazem HCl 30 mg 04/04/25 15:15 04/05/25 15:08 Diltiazem 30 Mg Tablet PO 05/04/25 15:14 30 mg Q6H REEMA Administration Escitalopram Oxalate 10 mg 04/02/25 09:00 04/05/25 08:22 Escitalopram Oxalate 10 Mg Tablet PO 05/02/25 08:59 10 mg QDAY REEMA Administration Heparin Sodium (Porcine) 4,300 unit 04/04/25 11:58 04/04/25 12:00 Heparin Sod Inj 1000 Unit/Ml Vial 10 Ml INDWELLCAT 04/18/25 11:57 4,300 unit X1 PRN Administration DIALYSIS Hydralazine HCl 10 mg 04/04/25 15:07 Hydralazine Inj 20 Mg/Ml Vial IVP 05/04/25 15:14 Q6H PRN hypertention Hydroxyzine HCl 25 mg 04/02/25 10:10 04/04/25 20:46 Hydroxyzine Hcl 25 Mg Tablet PO 05/02/25 10:09 25 mg Q6HR PRN Administration ANXIETY Azithromycin 500 mg/ Sodium 250 mls @ 250 mls/hr 04/02/25 09:00 04/05/25 09:11 Chloride IV 04/09/25 08:59 250 mls/hr QDAY REEMA Administration Ceftriaxone Sodium/Dextrose 1 gm in 50 mls @ 100 mls/hr 04/02/25 09:00 04/05/25 08:17 Rocephin/D5w 1gm Iv Premix IV 04/09/25 08:59 100 mls/hr QDAY REEMA Administration Lisinopril 5 mg 04/05/25 09:00 04/05/25 08:21 Lisinopril 2.5 Mg Tablet PO 05/05/25 08:59 5 mg QDAY REEMA Administration Ondansetron HCl 4 mg 04/01/25 23:08 Ondansetron Inj 2 Mg/Ml Inj 2 Ml IVP 05/01/25 23:07 Q6H PRN NAUSEA OR VOMITING Protocol Rifampin 300 mg 04/02/25 09:00 04/05/25 08:22 Rifampin 300 Mg Capsule PO 05/02/25 08:59 300 mg BID REEMA Administration Sevelamer Carbonate 800 mg 04/05/25 12:00 04/05/25 12:22 Sevelamer Carbonate 800 Mg Tablet PO 05/05/25 11:59 800 mg TIDWM REEMA Administration Plan 69-year-old male with a past medical history of A-fib, CHF, hypertension, ESRD on dialysis, chronic back pain, and a previous stroke 5 years ago presented today from [facility] with altered mental status. Patient was admitted for his altered mental status. #Acute Encephalopathy, resolved #Hyperlipidemia 2/2 to polypharmacy and overuse of pain meds Per caregiver at acute rehab facility, the patient was lethargic on the day of admission and below his baseline mental status ABG showed a pCO2 of 50 and a bicarb of 31, pH was 7.[address] negative Ammonia negative Per the rehab facility, the patient is being treated for bacteremia with rifampin Plan: -Titrate supplemental oxygen to a saturation of 97% -Adjust pain meds prior to d/c - Continue home atorvastatin 20 mg p.o. nightly #Acute Hypoxic Respiratory Failure #Pneumonia (Right Upper and Lower Lobes) #History of Bacteremia (possible CRBSI, on chronic rifampin) #Hx of Paroxysmal A-fib, rate controlled #ESRD on dialysis #Chronic back pain #Anxiety Primary care team to manage above conditions and ongoing care needs. The patient's management plan was discussed with my attending physician Dr. Salguero. Carol Jimenez, PGY-2 Attending Provider Attestation/Addendum I personally have seen and examined the patient at the bedside and agreed with the resident's findings, assessment and plan of care. Patient presented with altered mental status which is resolved and is back to baseline. He is waiting for placement
[2025-04-05] MEDS: ATORVASTATIN CALCIUM 20 MG TABLET PO (20:29)
[2025-04-06] VITALS (34 sets, daily range): BP systolic 142–179; BP diastolic 75–91; PULSE 77–92; RESP 13–94; TEMP 36.2–37.1; O2SAT 92–198; BMI 23.8
--- NOTE | 2025-04-06 03:08 | PC.NURSE ---
[employer] downtime occurred on <04/06> from <0200> to <0300>.
[2025-04-06] MEDS: ALBUTEROL/IPRATROPIUM (Duoneb) RT SOL 3 ML NEBU INH ×6 (03:12→22:53)
[2025-04-06] MEDS: DILTIAZEM 30 MG TABLET PO ×3 (03:54→20:38)
[2025-04-06] MEDS: HYDROcodone/APAP 5/325 TABLET 1 TAB PO ×3 (03:57→20:37)
[2025-04-06 05:22] LABS: Basophils # (Auto) 0.0 Thou/mm3 (0.0-0.2); Basophils % (Auto) 1 % (0-2.5); Eosinophils # (Auto) 0.2 Thou/mm3 (0.0-0.5); Eosinophils % (Auto) 4 % (0-10); Hematocrit 27.3 % (41.0-53.0); Immature Granulocytes Auto 0.04 Thou/mm3 (0.00-0.00); Lymphocytes # (Auto) 1.1 Thou/mm3 (1.0-4.8); Lymphocytes % (Auto) 20 % (10-50); Mean Corpuscular HGB Conc 31.9 g/dl (31.0-37.0); Mean Corpuscular Hemoglobin 32.8 pg (25.0-35.0); Mean Corpuscular Volume 103 fL (80-100); Monocytes # (Auto) 0.5 Thou/mm3 (0.0-0.8); Monocytes % (Auto) 9 % (0-12); Neutrophils # (Auto) 3.7 Thou/mm3 (1.8-7.7); Neutrophils % (Auto) 66 % (37-80); Nucleated Red Blood Cell # 0.00 Thou/mm3 (0.00-0.00); Nucleated Red Blood Cell % 0 /100 WBC (0); Platelet Count 116 Thou/mm3 (140-440); RDW Standard Deviation 60.5 fL (35.1-43.9); Red Blood Count 2.65 Miln/mm3 (4.50-5.90); White Blood Count 5.6 Thou/mm3 (3.8-10.6)
[2025-04-06 05:25] LABS: Hemoglobin 8.7 g/dL (13.5-16.0)
[2025-04-06 06:28] LABS: Alanine Aminotransferase < 7 U/L (10-49); Albumin, Serum 3.4 gm/dL (3.4-4.8); Albumin/Globulin Ratio 1.0 (1.2-2.2); Alkaline Phosphatase 50 U/L (46-116); Anion Gap 13 (7-16); Aspartate Amino Transferase 37 U/L (0-34); BUN/Creatinine Ratio 5 Ratio (12-20); Bilirubin,Total 0.7 mg/dL (0.3-1.2); Blood Urea Nitrogen 30 mg/dL (9-23); Calcium 8.3 mg/dL (8.3-10.6); Calcium (Corrected) 8.8 mg/dL (8.5-10.1); Carbon Dioxide 23.6 mMol/L (20.0-31.0); Chloride 104 mMol/L (98-107); Creatinine (Component) 5.6 mg/dL (0.6-1.3); Estimated Creatinine Clearance 12.9 mL/min (>60); Globulin 3.3 gm/dL (2.3-3.5); Glucose 101 mg/dL (74-106); Magnesium 2.1 mg/dL (1.6-2.6); Osmolality,Calculated 287 (275-295); Phosphorous 4.2 mg/dL (2.4-5.1); Potassium 4.1 mMol/L (3.4-5.1); Sodium 141 mMol/L (136-145); Total Protein 6.7 gm/dL (5.7-8.2); eGFR 10 See Note
--- NOTE | 2025-04-06 08:42 | PC.SS ---
Follow up note: SS has communicated with Carlito from patient's health insurance who explained pt is on the list to review for SNF placement. SS provided Carlito with SS contact phone#. Carlito is aware [facility] is the accepting SNF.
--- NOTE | 2025-04-06 09:59 | ESPR_ITS ---
Documentation for date of: 04/06/25 Subjective Subjective Interval history: Reason for consult: ESRD on HD History of present illness: Mr. Dwyer is a 69-year-old male with a past medical history of end-stage renal disease on hemodialysis, atrial fibrillation, congestive heart failure (EF ~40?55%), hypertension, prior stroke (5 years ago), chronic back pain, and recent bacteremia on rifampin, who presented from [facility] with altered mental status after returning from dialysis on 04/01/2025. Per caregiver, the patient was lethargic post-dialysis, noted to desaturate to 83% on room air, and was placed on supplemental O2 with improvement to 93%. At baseline, the patient is reportedly alert and oriented ?3 and takes his medications independently. He was recently admitted two weeks ago for acute hypoxic respiratory failure due to pneumonia, during which he was treated for Staphylococcus aureus bacteremia and discharged on rifampin. On current admission, workup showed dense right upper lobe pneumonia with right basilar infiltrate, mild heart failure, and pCO2 50 with compensatory HCO3 31 (ABG pH 7.41). CT head negative. He was started on azithromycin and ceftriaxone in the ED and remains on rifampin 300 mg PO BID. Patient currently seen awake, alert and oriented, denies chest pain, shortness of breath, or abdominal pain. Reports mild back pain consistent with baseline. Still refusing MRI. Consulted for ESRD on HD. 04/04/2025: Patient seen and evaluated this morning. Doing well overall, denies any shortness of breath, chest pain, or swelling. No overnight events. He is scheduled for dialysis today (2 L ultrafiltration goal) and will be discharged afterward per primary team plan. BP 188/95, HR 80, afebrile. Labs today: WBC 5.7, Hgb 9.1, Hct 28.4, Plt 127, Na 139, K 4.0, Cl 102, CO2 24.2, BUN 36, Cr 6.4, Glucose 110, Ca 8.1, Phos 5.3, Mg 2.1. 04/05/2025: Patient seen today, no new complaints, and clinically unchanged from yesterday. He tolerated dialysis well yesterday with 2 L of fluid removed. He is scheduled for discharge today, but if not discharged, he will require dialysis tomorrow per his regular schedule before discharge later. BP 161/93, HR 86, afebrile. Labs: no lab drawn today. 04/06/2025: Patient seen today during dialysis. Discharge planned after dialysis, though delayed due to insurance issues. The patient reports no new complaints, though he did experience some anxiety, which was managed with Ativan. Otherwise, he is clinically stable and has tolerated dialysis without issues. BP 160/85, HR 80, afebrile. Labs today: WBC 5.6, Hgb 8.7, Hct 27.3, Plt 116, Na 141, K 4.1, Cl 104, CO2 23.6, BUN 30, Cr 5.6, GFR 10, Ca 8.8, Phos 4.2, Mg 2.1. Exam Vital Signs Temp Pulse Resp BP Pulse Ox O2 Del Method O2 Flow Rate 97.1 F 80 13 160/85 H 96 Room Air 1 04/06/25 08:00 04/06/25 09:45 04/06/25 08:00 04/06/25 09:45 04/06/25 08:00 04/06/25 08:00 04/06/25 06:59 Narrative Exam General: Awake, alert and oriented, no acute distress. HEENT: Mucous membranes moist; pupils equal and reactive. CV: Regular rate and rhythm. Resp: Diminished breath sounds right base; on room air Abdomen: Soft, non-tender, non-distended. Extremities: No edema. Access: Right subclavian tunneled dialysis catheter, site clean/dry/intact. Neuro: Moves all extremities; no focal deficits. Objective Labs 04/07/25 04:43 04/07/25 04:43 Labs: Laboratory Results - last 24 hr 04/04/25 04/05/25 04/06/25 05:57 13:37 04:34 WBC 5.6 RBC 2.65 L Hgb 8.7 L Hct 27.3 L MCV 103 H MCH 32.8 MCHC 31.9 RDW Std Deviation 60.5 H Plt Count 116 L Neut % (Auto) 66 Lymph % (Auto) 20 [place] % (Auto) 9 Eos % (Auto) 4 Baso % (Auto) 1 Neut # (Auto) 3.7 Lymph # (Auto) 1.1 [place] # (Auto) 0.5 Eos # (Auto) 0.2 Baso # (Auto) 0.0 Immature Gran # (Auto) 0.04 H Absolute Nucleated RBC 0.00 Immature Gran % 1 H Nucleated RBC % 0 Sodium 141 Potassium 4.1 Chloride 104 Carbon Dioxide 23.6 Anion Gap 13 BUN 30 H Creatinine 5.6 H* D Estim Creat Clear Calc 12.9 L eGFR 10 L* BUN/Creatinine Ratio 5 L Glucose 101 Calculated Osmolality 287 Calcium 8.3 Corrected Calcium 8.8 Phosphorus 4.2 Magnesium 2.1 Total Bilirubin 0.7 AST 37 H ALT < 7 L Alkaline Phosphatase 50 Total Protein 6.7 Albumin 3.4 Globulin 3.3 Albumin/Globulin Ratio 1.0 L Coccidioides IgG Ab Negative Hepatitis A IgM Ab Non Reactive Hep Bs Antigen Non Reactive Hep Bs Antibody Reactive (Immune) Hep B Core IgM Ab Non Reactive Hepatitis C Antibody Reactive A ABG Interpretation ABG results: 04/01/25 04/01/25 04/03/25 18:20 23:33 17:40 ABG pH 7.41 7.43 ABG pCO2 50 H 40 D ABG pO2 94 89 ABG HCO3 31 H 26 ABG O2 Saturation 98 98 ABG Base Excess 6 H 2 VBG pH 7.46 VBG pCO2 48 VBG pO2 28 VBG Base Excess 9 H Quality Measures Quality Measures VTE prophylaxis Advance care planning discussed with:: patient Assessment & Plan Assessment Current Active Medications: Generic Name Dose Route Start Last Admin Trade Name Freq PRN Reason Stop Dose Admin Acetaminophen 1,000 mg 04/04/25 07:45 Acetaminophen 500 Mg Tablet PO 05/01/25 23:07 Q6H PRN Fever >100.3, pain 1-3 Hydrocodone Bitart/Acetaminophen 1 tab 04/02/25 19:35 04/06/25 03:57 Hydrocodone/Apap 5/325 Tablet PO 04/07/25 19:34 1 tab Q6HR PRN Administration Pain 4-8 Albuterol/Ipratropium 3 ml 04/03/25 17:57 04/06/25 06:58 Albuterol/Ipratropium (Duoneb) Rt Bianka 3 Ml Nebu INH 05/03/25 17:56 3 ml Q4HRRT REEMA Administration Amiodarone HCl 200 mg 04/02/25 09:00 04/05/25 20:29 Amiodarone Hcl 200 Mg Tablet PO 05/02/25 08:59 200 mg BID REEMA Administration Apixaban 5 mg 04/02/25 09:00 04/05/25 08:20 Apixaban 2.5 Mg Tablet PO 05/02/25 08:59 5 mg DAILY REEMA Administration Atorvastatin Calcium 20 mg 04/02/25 21:00 04/05/25 20:29 Atorvastatin Calcium 20 Mg Tablet PO 05/02/25 20:59 20 mg HS REEMA Administration Carvedilol 6.25 mg 04/04/25 08:00 04/05/25 16:41 Carvedilol 3.125 Mg Tablet PO 05/02/25 08:59 6.25 mg BIDWM REEMA Administration Diltiazem HCl 30 mg 04/04/25 15:15 04/06/25 03:54 Diltiazem 30 Mg Tablet PO 05/04/25 15:14 30 mg Q6H REEMA Administration Epoetin Ravi 10,000 unit 04/06/25 10:00 Epoetin Ravi-Epbx Inj 10,000 Unit/Ml Vial (Esrd) SC 04/06/25 10:01 X1 ONE Escitalopram Oxalate 10 mg 04/02/25 09:00 04/05/25 08:22 Escitalopram Oxalate 10 Mg Tablet PO 05/02/25 08:59 10 mg QDAY REEMA Administration Heparin Sodium (Porcine) 4,300 unit 04/04/25 11:58 04/04/25 12:00 Heparin Sod Inj 1000 Unit/Ml Vial 10 Ml INDWELLCAT 04/18/25 11:57 4,300 unit X1 PRN Administration DIALYSIS Hydralazine HCl 10 mg 04/04/25 15:07 Hydralazine Inj 20 Mg/Ml Vial IVP 05/04/25 15:14 Q6H PRN hypertention Hydroxyzine HCl 25 mg 04/02/25 10:10 04/04/25 20:46 Hydroxyzine Hcl 25 Mg Tablet PO 05/02/25 10:09 25 mg Q6HR PRN Administration ANXIETY Azithromycin 500 mg/ Sodium 250 mls @ 250 mls/hr 04/02/25 09:00 04/05/25 19:03 Chloride IV 04/09/25 08:59 Infused QDAY REEMA Infusion Ceftriaxone Sodium/Dextrose 1 gm in 50 mls @ 100 mls/hr 04/02/25 09:00 04/05/25 19:03 Rocephin/D5w 1gm Iv Premix IV 04/09/25 08:59 Infused QDAY REEMA Infusion Lisinopril 5 mg 04/05/25 09:00 04/05/25 08:21 Lisinopril 2.5 Mg Tablet PO 05/05/25 08:59 5 mg QDAY REEMA Administration Ondansetron HCl 4 mg 04/01/25 23:08 Ondansetron Inj 2 Mg/Ml Inj 2 Ml IVP 05/01/25 23:07 Q6H PRN NAUSEA OR VOMITING Protocol Rifampin 300 mg 04/02/25 09:00 04/05/25 20:29 Rifampin 300 Mg Capsule PO 05/02/25 08:59 300 mg BID REEMA Administration Sevelamer Carbonate 800 mg 04/05/25 12:00 04/05/25 16:41 Sevelamer Carbonate 800 Mg Tablet PO 05/05/25 11:59 800 mg TIDWM REEMA Administration Plan 69-year-old male with ESRD on HD, CHF, CAD, and previous Staphylococcus aureus bacteremia. Clinically stable, no new complaints. Discharge delayed due to insurance issues; plan for discharge after dialysis today. # ESRD on Hemodialysis Chronic ESRD on HD (Friday/Friday/Friday). Last session 04/04/25. Stable; planned HD today. Plan: * Proceed with HD today (UF goal 2 L). * Strict I/O monitoring, daily weight, avoid nephrotoxins. * Monitor electrolytes and volume status daily. * Post-HD discharge per primary team. Other active problems: #Pneumonia #Altered mental status #Atrial fibrillation #Congestive heart failure #Hypertension #Chronic back pain #History of stroke #Anxiety / depression Management per primary team ----- Plan discussed with attending physician Dr. Everette Pickett MD PGY-1 Internal Medicine Attending Provider Attestation/Addendum Patient seen and examined with resident physician Dr. Pickett. Note reviewed, agree with findings and recommendations. Patient currently seen on dialysis. Tolerating dialysis without any problems. Hemodialysis for 3 hours, 2K, ultrafiltration 2-3 L, Epogen 6000, no heparin ordered. Plan of care discussed with the dialysis nurse. Please see dialysis flowsheet for further details.
[2025-04-06] MEDS: EPOETIN ALFA-EPBX INJ 10,000 UNIT/ML VIAL (ESRD) 10000 UNIT SC (11:06)
[2025-04-06] MEDS: HEPARIN SOD INJ 1000 UNIT/ML VIAL 10 ML 4300 UNIT INDWELLCAT (11:15)
[2025-04-06] MEDS: cefTRIAXone/D5w 1gm IV premix 1 GM/50 ML BAG IV (11:33)
[2025-04-06] MEDS: APIXABAN 2.5 MG TABLET 5 MG PO (11:34)
[2025-04-06] MEDS: SEVELAMER CARBONATE 800 MG TABLET PO ×2 (11:34→17:04)
[2025-04-06] MEDS: ESCITALOPRAM OXALATE 10 MG TABLET PO (11:34)
[2025-04-06] MEDS: AMIODARONE HCL 200 MG TABLET PO ×2 (11:35→20:38)
[2025-04-06] MEDS: AZITHROMYCIN INJ 500 MG in SODIUM CHLORIDE 0.9% 250 ML 250 ML 250 MG IV (12:27)
--- NOTE | 2025-04-06 13:07 | ESPR_ITS ---
Documentation for date of: 04/06/25 Subjective Subjective Interval history: Patient was failed to be discharged yesterday. Pending Insurance authorization. Patient received Hemodialysis session today. Patient was positive for Hepatitis C. Patient was made aware of the result and advised to follow up outpatient. Exam Vital Signs Temp Pulse Resp BP Pulse Ox O2 Del Method O2 Flow Rate 98.2 F 92 17 179/91 H 95 Oxy Mask 7 04/06/25 11:46 04/06/25 11:46 04/06/25 11:46 04/06/25 11:46 04/06/25 11:46 04/06/25 11:46 04/06/25 11:46 Narrative Exam General: Awake, alert and oriented, no acute distress. HEENT: Mucous membranes moist; pupils equal and reactive. CV: Regular rate and rhythm. Resp: Diminished breath sounds right base Abdomen: Soft, non-tender, non-distended. Extremities: No edema. Access: Right subclavian tunneled dialysis catheter, site clean/dry/intact. Neuro: Moves all extremities; no focal deficits. Objective Labs 04/07/25 04:43 04/07/25 04:43 Labs: Laboratory Results - last 24 hr 04/04/25 04/05/25 04/06/25 05:57 13:37 04:34 WBC 5.6 RBC 2.65 L Hgb 8.7 L Hct 27.3 L MCV 103 H MCH 32.8 MCHC 31.9 RDW Std Deviation 60.5 H Plt Count 116 L Neut % (Auto) 66 Lymph % (Auto) 20 [place] % (Auto) 9 Eos % (Auto) 4 Baso % (Auto) 1 Neut # (Auto) 3.7 Lymph # (Auto) 1.1 [place] # (Auto) 0.5 Eos # (Auto) 0.2 Baso # (Auto) 0.0 Immature Gran # (Auto) 0.04 H Absolute Nucleated RBC 0.00 Immature Gran % 1 H Nucleated RBC % 0 Sodium 141 Potassium 4.1 Chloride 104 Carbon Dioxide 23.6 Anion Gap 13 BUN 30 H Creatinine 5.6 H* D Estim Creat Clear Calc 12.9 L eGFR 10 L* BUN/Creatinine Ratio 5 L Glucose 101 Calculated Osmolality 287 Calcium 8.3 Corrected Calcium 8.8 Phosphorus 4.2 Magnesium 2.1 Total Bilirubin 0.7 AST 37 H ALT < 7 L Alkaline Phosphatase 50 Total Protein 6.7 Albumin 3.4 Globulin 3.3 Albumin/Globulin Ratio 1.0 L Coccidioides IgG Ab Negative Hepatitis A IgM Ab Non Reactive Hep Bs Antigen Non Reactive Hep Bs Antibody Reactive (Immune) Hep B Core IgM Ab Non Reactive Hepatitis C Antibody Reactive A ABG Interpretation ABG results: 04/01/25 04/01/25 04/03/25 18:20 23:33 17:40 ABG pH 7.41 7.43 ABG pCO2 50 H 40 D ABG pO2 94 89 ABG HCO3 31 H 26 ABG O2 Saturation 98 98 ABG Base Excess 6 H 2 VBG pH 7.46 VBG pCO2 48 VBG pO2 28 VBG Base Excess 9 H Quality Measures Quality Measures VTE prophylaxis Advance care planning discussed with:: patient Assessment & Plan Assessment Current Active Medications: Generic Name Dose Route Start Last Admin Trade Name Freq PRN Reason Stop Dose Admin Acetaminophen 1,000 mg 04/04/25 07:45 Acetaminophen 500 Mg Tablet PO 05/01/25 23:07 Q6H PRN Fever >100.3, pain 1-3 Hydrocodone Bitart/Acetaminophen 1 tab 04/02/25 19:35 04/06/25 11:53 Hydrocodone/Apap 5/325 Tablet PO 04/07/25 19:34 1 tab Q6HR PRN Administration Pain 4-8 Albuterol/Ipratropium 3 ml 04/03/25 17:57 04/06/25 11:02 Albuterol/Ipratropium (Duoneb) Rt B[place]ka 3 Ml Nebu INH 05/03/25 17:56 3 ml Q4HRRT REEMA Administration Amiodarone HCl 200 mg 04/02/25 09:00 04/06/25 11:35 Amiodarone Hcl 200 Mg Tablet PO 05/02/25 08:59 200 mg BID REEMA Administration Apixaban 5 mg 04/02/25 09:00 04/06/25 11:34 Apixaban 2.5 Mg Tablet PO 05/02/25 08:59 5 mg DAILY REEMA Administration Atorvastatin Calcium 20 mg 04/02/25 21:00 04/05/25 20:29 Atorvastatin Calcium 20 Mg Tablet PO 05/02/25 20:59 20 mg HS REEMA Administration Carvedilol 6.25 mg 04/04/25 08:00 04/06/25 11:34 Carvedilol 3.125 Mg Tablet PO 05/02/25 08:59 6.25 mg BIDWM REEMA Administration Diltiazem HCl 30 mg 04/04/25 15:15 04/06/25 10:46 Diltiazem 30 Mg Tablet PO 05/04/25 15:14 Not Given Q6H REEMA Escitalopram Oxalate 10 mg 04/02/25 09:00 04/06/25 11:34 Escitalopram Oxalate 10 Mg Tablet PO 05/02/25 08:59 10 mg QDAY REEMA Administration Heparin Sodium (Porcine) 4,300 unit 04/04/25 11:58 04/06/25 11:15 Heparin Sod Inj 1000 Unit/Ml Vial 10 Ml INDWELLCAT 04/18/25 11:57 4,300 unit X1 PRN Administration DIALYSIS Hydralazine HCl 10 mg 04/04/25 15:07 Hydralazine Inj 20 Mg/Ml Vial IVP 05/04/25 15:14 Q6H PRN hypertention Hydroxyzine HCl 25 mg 04/02/25 10:10 04/04/25 20:46 Hydroxyzine Hcl 25 Mg Tablet PO 05/02/25 10:09 25 mg Q6HR PRN Administration ANXIETY Azithromycin 500 mg/ Sodium 250 mls @ 250 mls/hr 04/02/25 09:00 04/06/25 12:27 Chloride IV 04/09/25 08:59 250 mls/hr QDAY REEMA Administration Ceftriaxone Sodium/Dextrose 1 gm in 50 mls @ 100 mls/hr 04/02/25 09:00 04/06/25 11:33 Rocephin/D5w 1gm Iv Premix IV 04/09/25 08:59 100 mls/hr QDAY REEMA Administration Lisinopril 5 mg 04/05/25 09:00 04/06/25 11:35 Lisinopril 2.5 Mg Tablet PO 05/05/25 08:59 5 mg QDAY REEMA Administration Ondansetron HCl 4 mg 04/01/25 23:08 Ondansetron Inj 2 Mg/Ml Inj 2 Ml IVP 05/01/25 23:07 Q6H PRN NAUSEA OR VOMITING Protocol Rifampin 300 mg 04/02/25 09:00 04/06/25 11:35 Rifampin 300 Mg Capsule PO 05/02/25 08:59 300 mg BID REEMA Administration Sevelamer Carbonate 800 mg 04/05/25 12:00 04/06/25 11:34 Sevelamer Carbonate 800 Mg Tablet PO 05/05/25 11:59 800 mg TIDWM [facility] Administration Plan Summary: 69-year-old male with a past medical history of A-fib, CHF, hypertension, ESRD on dialysis, chronic back pain, and a previous stroke 5 years ago presented today from [facility] with altered mental status. Patient was admitted for his altered mental status. Patient was put on nasal cannula to increase oxygen saturation to 97%, given IV antibiotics, and continued his home medication. Counseled on cessation of norco as this medication likely has contributed to his altered mental status and hypoxia. Patient was positive for hepatitis C. Advised patient to follow up outpatient upon discharge ED course: Vitals on arrival: BP 117/60, pulse 71, respiratory rate 18, temp 97.8, saturating at 97% on 1.5 L nasal cannula. Notable labs: Hemoglobin 9.1, hematocrit 28.2, MCV 102, creatinine 3.8, BNP 432. ABG showed a pH of 7.41, pCO2 of 50, pO2 94, HCO3 of 31. Imaging: Chest x-ray showed extensive right lung pneumonia, mild associated heart failure. EKG shows sinus rhythm with a rate of 69. Head CT negative. Chest CT showed dense opacity in the right upper lobe most consistent with pneumonic consolidation, there is a right base pneumonia, mild heart failure. In the ED, the patient was placed on supplemental oxygen and given a dose of azithromycin, hydrocodone, morphine, ceftriaxone, and albuterol treatment, and started on a sodium chloride drip at 50 mL/h. Hospital Course: Upon admission to the hospital, neurology was consulted.? Started on rifampin 300 mg p.o. twice daily, azithromycin 500 mg IV daily, ceftriaxone 1 g IV daily.? Continued his home medication Eliquis 5 mg p.o. daily, amiodarone 200 mg p.o. twice daily, carvedilol 6.25 mg p.o. twice daily. ??Per caregiver, he desaturated to 83% oxygen on room air at the rehab center. He was put on nasal cannula and titrated supplemental oxygen to saturation of 97%. Blood culture was negative for 48hrs x2.? Patient was counseled on cessation of Fleming as this medication has likely contributed to lower his respiratory drive at the SNF, causing hypoxia.? Patient continues to adamantly reject MRI for his lower back pain.? Patient has been discharged after dialysis session on 04/04. Patient was positive for hepatitis C. Advised patient to follow up outpatient upon discharge Instructions: Stop taking hydrocodone for breakthrough pain and instead ask your PCP to refer you to a pain specialist and take [id number] pain medication such as Tylenol instead Continue IV antibiotic regimen with dialysis session, cefazolin 2 g with dialysis along with the rifampin 300 mg by mouth twice a day until 06/03/2025 Outpatient follow up hepatitis panel. Follow up with PCP. Please continue all other home medications Continue going to all dialysis sessions as scheduled Please follow-up with your PCP within 1 week of discharge or follow-up at the [place] [id number] [address] [place] [address] If your symptoms worsen or if you develop new shortness of breath, chest pain, severe headache or loss of consciousness - please come back to the ED immediately #Acute Encephalopathy, resolved #Acute Hypoxic Respiratory Failure #Pneumonia (Right Upper and Lower Lobes) #History of Bacteremia (possible CRBSI, on chronic rifampin) #Hx of Paroxysmal A-fib, rate controlled #ESRD on dialysis #Hepatitis C #Chronic back pain #Anxiety #Hyperlipidemia Assessment and plan discussed with my attending physician Dr. Melo and Dr. Monroe (PGY-3) Dr. Miles (PGY-1) - Internal medicine resident Attending Provider Attestation/Addendum I have examined the patient, reviewed labs and imaging findings, discussed the case with the resident(s), and reviewed entered orders. I agree with the plan of care as outlined in this note. Dr. Lorie MD
--- NOTE | 2025-04-06 15:21 | PC.SS ---
SS has re faxed inquiry to patient's health insurance.
[2025-04-06] MEDS: ATORVASTATIN CALCIUM 20 MG TABLET PO (20:37)
--- NOTE | 2025-04-06 22:09 | PD.NEUROPROG ---
Documentation for date of: 04/06/25 Subjective Subjective Interval history: Patient was seen in telemetry today. No new symptoms reported. Tolerating oral diet well. Exam - Neurology Vital Signs Temp Pulse Resp BP Pulse Ox O2 Del Method O2 Flow Rate 97.4 F 83 20 149/85 H 98 Room Air 7 04/06/25 16:00 04/06/25 20:38 04/06/25 18:21 04/06/25 20:38 04/06/25 18:21 04/06/25 16:00 04/06/25 11:46 Narrative Exam GENERAL APPEARANCE: Well hydrated, well-nourished in no acute distress. HEENT: Normocephalic, atraumatic, extraocular movements intact. Pupils: Equal reacting to light and accommodation NECK: Supple, no JVD or bruits. CARDIOVASULAR: Heart: S1, S2 heard, regular without S3-S4 or murmur no rubs or gallops. LUNGS/CHEST: Clear to auscultation bilaterally. No rails, rhonchi, or wheezing. Normal inspection. ABDOMEN: Soft, nontender, with normal bowel sounds. No pulsatile masses. No rebound, rigidity, or guarding. Normal inspection and palpation. EXTREMITIES: Normal inspection and palpation. No edema, clubbing or cyanosis. SKIN: Warm and dry without rashes. Normal inspection. MUSCULOSKELETAL: No cervical, thoracic, lumbar or midline bony tenderness. Normal inspection. NEURO: Alert, awake and oriented x2. Cranial nerves: II through XII grossly intact. Speech and language: Normal with no dysarthria or dysphasia. Hypophonic speech. Motor system: Tone and bulk: Normal: Strength: 5 out of 5 in all 4 extremities; No pronator drift noted. Deep tendon reflexes: 2+ bilaterally symmetrical. Plantar reflex: Downgoing bilaterally. Sensory system: Intact to all modalities of sensation bilaterally. Coordination: Intact to [id number] and dxug-fnal-[id number] test bilaterally. No ataxia, no dysmetria, or dysdiadochokinesia noted. No intention tremors noted. Gait: Not tested. No signs of meningeal irritation noted. PSYCHIATRIC: Limited. Objective Labs 04/06/25 04:34 04/06/25 04:34 Labs: Laboratory Results - last 24 hr 04/06/25 04:34 WBC 5.6 RBC 2.65 L Hgb 8.7 L Hct 27.3 L MCV 103 H MCH 32.8 MCHC 31.9 RDW Std Deviation 60.5 H Plt Count 116 L Neut % (Auto) 66 Lymph % (Auto) 20 [place] % (Auto) 9 Eos % (Auto) 4 Baso % (Auto) 1 Neut # (Auto) 3.7 Lymph # (Auto) 1.1 [place] # (Auto) 0.5 Eos # (Auto) 0.2 Baso # (Auto) 0.0 Immature Gran # (Auto) 0.04 H Absolute Nucleated RBC 0.00 Immature Gran % 1 H Nucleated RBC % 0 Sodium 141 Potassium 4.1 Chloride 104 Carbon Dioxide 23.6 Anion Gap 13 BUN 30 H Creatinine 5.6 H* D Estim Creat Clear Calc 12.9 L eGFR 10 L* BUN/Creatinine Ratio 5 L Glucose 101 Calculated Osmolality 287 Calcium 8.3 Corrected Calcium 8.8 Phosphorus 4.2 Magnesium 2.1 Total Bilirubin 0.7 AST 37 H ALT < 7 L Alkaline Phosphatase 50 Total Protein 6.7 Albumin 3.4 Globulin 3.3 Albumin/Globulin Ratio 1.0 L ABG Interpretation ABG results: 04/01/25 04/01/25 04/03/25 18:20 23:33 17:40 ABG pH 7.41 7.43 ABG pCO2 50 H 40 D ABG pO2 94 89 ABG HCO3 31 H 26 ABG O2 Saturation 98 98 ABG Base Excess 6 H 2 VBG pH 7.46 VBG pCO2 48 VBG pO2 28 VBG Base Excess 9 H Assessment & Plan Assessment and plan (1) Altered mental status: Status: Acute Assessment and plan: 69-year-old male with a past medical history of A-fib, CHF, hypertension, ESRD on dialysis, chronic back pain, and a previous stroke 5 years ago presented from [facility] with altered mental status. Patient was admitted for his altered mental status. #Acute Encephalopathy, resolved #Hyperlipidemia 2/2 to polypharmacy and overuse of pain meds Per caregiver at acute rehab facility, the patient was lethargic on the day of admission and below his baseline mental status ABG showed a pCO2 of 50 and a bicarb of 31, pH was 7.[address] negative Ammonia negative - Continue home atorvastatin 20 mg p.o. nightly Neurologically stable for discharge back to rehab. #Acute Hypoxic Respiratory Failure: resolved #Pneumonia (Right Upper and Lower Lobes) #History of Bacteremia (possible CRBSI, on chronic rifampin) #Hx of Paroxysmal A-fib, rate controlled #ESRD on dialysis #Chronic back pain #Anxiety Primary care team to manage above conditions and ongoing care needs.
[2025-04-07] VITALS (11 sets, daily range): BP systolic 137–169; BP diastolic 77–87; PULSE 78–88; RESP 15–93; TEMP 36.3–36.7; O2SAT 92–98; BMI 23.0
[2025-04-07] MEDS: DILTIAZEM 30 MG TABLET PO ×2 (03:43→09:03)
[2025-04-07 05:57] LABS: Basophils # (Auto) 0.1 Thou/mm3 (0.0-0.2); Basophils % (Auto) 1 % (0-2.5); Eosinophils # (Auto) 0.3 Thou/mm3 (0.0-0.5); Eosinophils % (Auto) 4 % (0-10); Hematocrit 29.2 % (41.0-53.0); Hemoglobin 9.3 g/dL (13.5-16.0); Immature Granulocytes Auto 0.03 Thou/mm3 (0.00-0.00); Lymphocytes # (Auto) 1.2 Thou/mm3 (1.0-4.8); Lymphocytes % (Auto) 19 % (10-50); Mean Corpuscular HGB Conc 31.8 g/dl (31.0-37.0); Mean Corpuscular Hemoglobin 33.2 pg (25.0-35.0); Mean Corpuscular Volume 104 fL (80-100); Monocytes # (Auto) 0.6 Thou/mm3 (0.0-0.8); Monocytes % (Auto) 9 % (0-12); Neutrophils # (Auto) 4.0 Thou/mm3 (1.8-7.7); Neutrophils % (Auto) 66 % (37-80); Nucleated Red Blood Cell # 0.00 Thou/mm3 (0.00-0.00); Nucleated Red Blood Cell % 0 /100 WBC (0); Platelet Count 124 Thou/mm3 (140-440); RDW Standard Deviation 59.9 fL (35.1-43.9); Red Blood Count 2.80 Miln/mm3 (4.50-5.90); White Blood Count 6.1 Thou/mm3 (3.8-10.6)
[2025-04-07 06:37] LABS: Alanine Aminotransferase 8 U/L (10-49); Albumin, Serum 3.3 gm/dL (3.4-4.8); Albumin/Globulin Ratio 0.9 (1.2-2.2); Alkaline Phosphatase 54 U/L (46-116); Anion Gap 12 (7-16); Aspartate Amino Transferase 50 U/L (0-34); BUN/Creatinine Ratio 4 Ratio (12-20); Bilirubin,Total 0.8 mg/dL (0.3-1.2); Blood Urea Nitrogen 19 mg/dL (9-23); Calcium 9.1 mg/dL (8.3-10.6); Calcium (Corrected) 9.7 mg/dL (8.5-10.1); Carbon Dioxide 27.2 mMol/L (20.0-31.0); Chloride 102 mMol/L (98-107); Creatinine (Component) 4.4 mg/dL (0.6-1.3); Estimated Creatinine Clearance 16.4 mL/min (>60); Globulin 3.7 gm/dL (2.3-3.5); Glucose 96 mg/dL (74-106); Magnesium 2.0 mg/dL (1.6-2.6); Osmolality,Calculated 283 (275-295); Phosphorous 3.5 mg/dL (2.4-5.1); Potassium 3.7 mMol/L (3.4-5.1); Sodium 141 mMol/L (136-145); Total Protein 7.0 gm/dL (5.7-8.2); eGFR 14 See Note
[2025-04-07] MEDS: ALBUTEROL/IPRATROPIUM (Duoneb) RT SOL 3 ML NEBU INH ×2 (07:01→12:04)
[2025-04-07] MEDS: AZITHROMYCIN INJ 500 MG in SODIUM CHLORIDE 0.9% 250 ML 250 ML 250 MG IV (08:59)
[2025-04-07] MEDS: cefTRIAXone/D5w 1gm IV premix 1 GM/50 ML BAG IV (09:00)
[2025-04-07] MEDS: HYDROcodone/APAP 5/325 TABLET 1 TAB PO (09:03)
[2025-04-07] MEDS: AMIODARONE HCL 200 MG TABLET PO (09:04)
[2025-04-07] MEDS: SEVELAMER CARBONATE 800 MG TABLET PO ×2 (09:04→12:24)
[2025-04-07] MEDS: APIXABAN 2.5 MG TABLET 5 MG PO (09:04)
[2025-04-07] MEDS: ESCITALOPRAM OXALATE 10 MG TABLET PO (09:05)
--- NOTE | 2025-04-07 10:00 | PC.SS ---
SS communicated with Lily at [facility] who states she has obtained insurance authorization. SS has setup gurney transportation with Wesley from [facility] for 1pm to [facility].? Ref# [id number].? SS has requested [facility].? Per [facility] manufacturing sales representative, [facility] is not a guaranteed transport company.? Estimated time is 3-4 hours.? SS has sent patient?s facesheet and ambulance form to [facility] SS has spoken to MJ at [facility] who has placed pt on will call list until she has been contacted by [facility]. Bedside nurse, Hamida is aware. Tierney SHAHID is aware. Pt is aware. Lily from [facility] is aware.
--- NOTE | 2025-04-07 11:33 | PC.SS ---
SS was informed by Lily at [facility] pt is requiring transportation to [facility] to be setup. SS has informed Lily from [facility] pt came from their facility not home. SS has spoken to Marisa from [facility] who states pt already has a stand up order for transportation through [facility]. Lily from [facility] is aware. Lily explained Marisa from [facility] will follow up with [facility] and is aware pt will be returning to [facility] upon dc.
--- NOTE | 2025-04-07 12:25 | PD.RESPRO ---
Documentation for date of: 04/07/25 Subjective Subjective Interval history: Reason for consult: ESRD on HD History of present illness: Mr. Dwyer is a 69-year-old male with a past medical history of end-stage renal disease on hemodialysis, atrial fibrillation, congestive heart failure (EF ~40?55%), hypertension, prior stroke (5 years ago), chronic back pain, and recent bacteremia on rifampin, who presented from [facility] with altered mental status after returning from dialysis on 04/01/2025. Per caregiver, the patient was lethargic post-dialysis, noted to desaturate to 83% on room air, and was placed on supplemental O2 with improvement to 93%. At baseline, the patient is reportedly alert and oriented ?3 and takes his medications independently. He was recently admitted two weeks ago for acute hypoxic respiratory failure due to pneumonia, during which he was treated for Staphylococcus aureus bacteremia and discharged on rifampin. On current admission, workup showed dense right upper lobe pneumonia with right basilar infiltrate, mild heart failure, and pCO2 50 with compensatory HCO3 31 (ABG pH 7.41). CT head negative. He was started on azithromycin and ceftriaxone in the ED and remains on rifampin 300 mg PO BID. Patient currently seen awake, alert and oriented, denies chest pain, shortness of breath, or abdominal pain. Reports mild back pain consistent with baseline. Still refusing MRI. Consulted for ESRD on HD. 04/04/2025: Patient seen and evaluated this morning. Doing well overall, denies any shortness of breath, chest pain, or swelling. No overnight events. He is scheduled for dialysis today (2 L ultrafiltration goal) and will be discharged afterward per primary team plan. BP 188/95, HR 80, afebrile. Labs today: WBC 5.7, Hgb 9.1, Hct 28.4, Plt 127, Na 139, K 4.0, Cl 102, CO2 24.2, BUN 36, Cr 6.4, Glucose 110, Ca 8.1, Phos 5.3, Mg 2.1. 04/05/2025: Patient seen today, no new complaints, and clinically unchanged from yesterday. He tolerated dialysis well yesterday with 2 L of fluid removed. He is scheduled for discharge today, but if not discharged, he will require dialysis tomorrow per his regular schedule before discharge later. BP 161/93, HR 86, afebrile. Labs: no lab drawn today. 04/06/2025: Patient seen today during dialysis. Discharge planned after dialysis, though delayed due to insurance issues. The patient reports no new complaints, though he did experience some anxiety, which was managed with Ativan. Otherwise, he is clinically stable and has tolerated dialysis without issues. BP 160/85, HR 80, afebrile. Labs today: WBC 5.6, Hgb 8.7, Hct 27.3, Plt 116, Na 141, K 4.1, Cl 104, CO2 23.6, BUN 30, Cr 5.6, GFR 10, Ca 8.8, Phos 4.2, Mg 2.1. 04/07/2025: Patient seen today, no new complaints, and clinically unchanged from yesterday. He tolerated dialysis well yesterday with 2 L of fluid removed. He is scheduled for discharge today. na 141, K 3.7, Cl 102, BUN 19, Cr 4.4, GFR 14, Ca 9.7, Phos 3.5, Mag 2.0. Exam Vital Signs Temp Pulse Resp BP Pulse Ox O2 Del Method O2 Flow Rate 97.7 F 78 18 137/77 H 98 Room Air 7 04/07/25 12:00 04/07/25 12:04 04/07/25 12:04 04/07/25 12:00 04/07/25 12:04 04/07/25 12:00 04/06/25 11:46 Narrative Exam General: Awake, alert and oriented, no acute distress. HEENT: Mucous membranes moist; pupils equal and reactive. CV: Regular rate and rhythm. Resp: Diminished breath sounds right base; on room air Abdomen: Soft, non-tender, non-distended. Extremities: No edema. Access: Right subclavian tunneled dialysis catheter, site clean/dry/intact. Neuro: Moves all extremities; no focal deficits. Objective Labs 04/07/25 04:43 04/07/25 04:43 Labs: Laboratory Results - last 24 hr 04/07/25 04:43 WBC 6.1 RBC 2.80 L Hgb 9.3 L Hct 29.2 L MCV 104 H MCH 33.2 MCHC 31.8 RDW Std Deviation 59.9 H Plt Count 124 L Neut % (Auto) 66 Lymph % (Auto) 19 [place] % (Auto) 9 Eos % (Auto) 4 Baso % (Auto) 1 Neut # (Auto) 4.0 Lymph # (Auto) 1.2 [place] # (Auto) 0.6 Eos # (Auto) 0.3 Baso # (Auto) 0.1 Immature Gran # (Auto) 0.03 H Absolute Nucleated RBC 0.00 Immature Gran % 1 H Nucleated RBC % 0 Sodium 141 Potassium 3.7 Chloride 102 Carbon Dioxide 27.2 Anion Gap 12 BUN 19 Creatinine 4.4 H* D Estim Creat Clear Calc 16.4 L eGFR 14 L* BUN/Creatinine Ratio 4 L Glucose 96 Calculated Osmolality 283 Calcium 9.1 Corrected Calcium 9.7 Phosphorus 3.5 Magnesium 2.0 Total Bilirubin 0.8 AST 50 H ALT 8 L Alkaline Phosphatase 54 Total Protein 7.0 Albumin 3.3 L Globulin 3.7 H Albumin/Globulin Ratio 0.9 L ABG Interpretation ABG results: 04/01/25 04/01/25 04/03/25 18:20 23:33 17:40 ABG pH 7.41 7.43 ABG pCO2 50 H 40 D ABG pO2 94 89 ABG HCO3 31 H 26 ABG O2 Saturation 98 98 ABG Base Excess 6 H 2 VBG pH 7.46 VBG pCO2 48 VBG pO2 28 VBG Base Excess 9 H Quality Measures Quality Measures VTE prophylaxis Advance care planning discussed with:: patient Assessment & Plan Assessment Current Active Medications: Generic Name Dose Route Start Last Admin Trade Name Freq PRN Reason Stop Dose Admin Acetaminophen 1,000 mg 04/04/25 07:45 Acetaminophen 500 Mg Tablet PO 05/01/25 23:07 Q6H PRN Fever >100.3, pain 1-3 Hydrocodone Bitart/Acetaminophen 1 tab 04/02/25 19:35 04/07/25 09:03 Hydrocodone/Apap 5/325 Tablet PO 04/07/25 19:34 1 tab Q6HR PRN Administration Pain 4-8 Albuterol/Ipratropium 3 ml 04/07/25 07:00 04/07/25 12:04 Albuterol/Ipratropium (Duoneb) Rt Bianka 3 Ml Nebu INH 05/07/25 06:59 3 ml Q6HRRT REEMA Administration Amiodarone HCl 200 mg 04/02/25 09:00 04/07/25 09:04 Amiodarone Hcl 200 Mg Tablet PO 05/02/25 08:59 200 mg BID REEMA Administration Apixaban 5 mg 04/02/25 09:00 04/07/25 09:04 Apixaban 2.5 Mg Tablet PO 05/02/25 08:59 5 mg DAILY REEMA Administration Atorvastatin Calcium 20 mg 04/02/25 21:00 04/06/25 20:37 Atorvastatin Calcium 20 Mg Tablet PO 05/02/25 20:59 20 mg HS REEMA Administration Carvedilol 6.25 mg 04/04/25 08:00 04/07/25 09:02 Carvedilol 3.125 Mg Tablet PO 05/02/25 08:59 6.25 mg BIDWM REEMA Administration Diltiazem HCl 30 mg 04/04/25 15:15 04/07/25 09:03 Diltiazem 30 Mg Tablet PO 05/04/25 15:14 30 mg Q6H REEMA Administration Escitalopram Oxalate 10 mg 04/02/25 09:00 04/07/25 09:05 Escitalopram Oxalate 10 Mg Tablet PO 05/02/25 08:59 10 mg QDAY REEMA Administration Heparin Sodium (Porcine) 4,300 unit 04/04/25 11:58 04/06/25 11:15 Heparin Sod Inj 1000 Unit/Ml Vial 10 Ml INDWELLCAT 04/18/25 11:57 4,300 unit X1 PRN Administration DIALYSIS Hydralazine HCl 10 mg 04/04/25 15:07 Hydralazine Inj 20 Mg/Ml Vial IVP 05/04/25 15:14 Q6H PRN hypertention Hydroxyzine HCl 25 mg 04/02/25 10:10 04/04/25 20:46 Hydroxyzine Hcl 25 Mg Tablet PO 05/02/25 10:09 25 mg Q6HR PRN Administration ANXIETY Azithromycin 500 mg/ Sodium 250 mls @ 250 mls/hr 04/02/25 09:00 04/07/25 08:59 Chloride IV 04/09/25 08:59 250 mls/hr QDAY REEMA Administration Ceftriaxone Sodium/Dextrose 1 gm in 50 mls @ 100 mls/hr 04/02/25 09:00 04/07/25 09:00 Rocephin/D5w 1gm Iv Premix IV 04/09/25 08:59 100 mls/hr QDAY REEMA Administration Lisinopril 5 mg 04/05/25 09:00 04/07/25 09:03 Lisinopril 2.5 Mg Tablet PO 05/05/25 08:59 5 mg QDAY REEMA Administration Ondansetron HCl 4 mg 04/01/25 23:08 Ondansetron Inj 2 Mg/Ml Inj 2 Ml IVP 05/01/25 23:07 Q6H PRN NAUSEA OR VOMITING Protocol Rifampin 300 mg 04/02/25 09:00 04/07/25 09:02 Rifampin 300 Mg Capsule PO 05/02/25 08:59 300 mg BID REEMA Administration Sevelamer Carbonate 800 mg 04/05/25 12:00 04/07/25 12:24 Sevelamer Carbonate 800 Mg Tablet PO 05/05/25 11:59 800 mg TIDWM REEMA Administration Plan 69-year-old male with ESRD on HD, CHF, CAD, and previous Staphylococcus aureus bacteremia. Clinically stable, no new complaints. Discharge delayed due to insurance issues; plan for discharge today. # ESRD on Hemodialysis Chronic ESRD on HD (Friday/Friday/Friday). Last session 04/06/25. Stable; planned DC today. Plan: Strict I/O monitoring, daily weight, avoid nephrotoxins. Monitor electrolytes and volume status daily. Post-HD discharge per primary team. Other active problems: #Pneumonia #Altered mental status #Atrial fibrillation #Congestive heart failure #Hypertension #Chronic back pain #History of stroke #Anxiety / depression Management per primary team ----- Plan discussed with attending physician Dr. Everette Pickett MD PGY-1 Internal Medicine Attending Provider Attestation/Addendum Patient seen and examined with resident physician Dr. Pickett. Note reviewed, agree with findings and recommendations. Currently seen in medical floor. Plans for discharge today. If not discharged he needs a dialysis tomorrow.
--- NOTE | 2025-04-07 12:46 | PC.NURSE ---
Report given to Cheryl at [facility]
--- NOTE | 2025-04-07 16:03 | ESPR_ITS ---
Documentation for date of: 04/07/25 Subjective Subjective Interval history: Patient has been discharged to SNF today, 04/07/2025 Exam Vital Signs Temp Pulse Resp BP Pulse Ox O2 Del Method O2 Flow Rate 97.7 F 78 18 137/77 H 98 Room Air 7 04/07/25 12:00 04/07/25 12:04 04/07/25 12:04 04/07/25 12:00 04/07/25 12:04 04/07/25 12:00 04/06/25 11:46 Narrative Exam General: Awake, alert and oriented, no acute distress. HEENT: Mucous membranes moist; pupils equal and reactive. CV: Regular rate and rhythm. Resp: Diminished breath sounds right base Abdomen: Soft, non-tender, non-distended. Extremities: No edema. Access: Right subclavian tunneled dialysis catheter, site clean/dry/intact. Neuro: Moves all extremities; no focal deficits. Objective Labs 04/07/25 04:43 04/07/25 04:43 Labs: Laboratory Results - last 24 hr 04/07/25 04:43 WBC 6.1 RBC 2.80 L Hgb 9.3 L Hct 29.2 L MCV 104 H MCH 33.2 MCHC 31.8 RDW Std Deviation 59.9 H Plt Count 124 L Neut % (Auto) 66 Lymph % (Auto) 19 [place] % (Auto) 9 Eos % (Auto) 4 Baso % (Auto) 1 Neut # (Auto) 4.0 Lymph # (Auto) 1.2 [place] # (Auto) 0.6 Eos # (Auto) 0.3 Baso # (Auto) 0.1 Immature Gran # (Auto) 0.03 H Absolute Nucleated RBC 0.00 Immature Gran % 1 H Nucleated RBC % 0 Sodium 141 Potassium 3.7 Chloride 102 Carbon Dioxide 27.2 Anion Gap 12 BUN 19 Creatinine 4.4 H* D Estim Creat Clear Calc 16.4 L eGFR 14 L* BUN/Creatinine Ratio 4 L Glucose 96 Calculated Osmolality 283 Calcium 9.1 Corrected Calcium 9.7 Phosphorus 3.5 Magnesium 2.0 Total Bilirubin 0.8 AST 50 H ALT 8 L Alkaline Phosphatase 54 Total Protein 7.0 Albumin 3.3 L Globulin 3.7 H Albumin/Globulin Ratio 0.9 L ABG Interpretation ABG results: 10/24/25 10/24/25 10/26/25 18:20 23:33 17:40 ABG pH 7.41 7.43 ABG pCO2 50 H 40 D ABG pO2 94 89 ABG HCO3 31 H 26 ABG O2 Saturation 98 98 ABG Base Excess 6 H 2 VBG pH 7.46 VBG pCO2 48 VBG pO2 28 VBG Base Excess 9 H Quality Measures Quality Measures VTE prophylaxis Advance care planning discussed with:: patient Assessment & Plan Plan Summary: 69-year-old male with a past medical history of A-fib, CHF, hypertension, ESRD on dialysis, chronic back pain, and a previous stroke 5 years ago presented today from [facility] with altered mental status. Patient was admitted for his altered mental status. Patient was put on nasal cannula to increase oxygen saturation to 97%, given IV antibiotics, and continued his home medication. Counseled on cessation of norco as this medication likely has contributed to his altered mental status and hypoxia. Patient was positive for hepatitis C. Advised patient to follow up outpatient upon discharge ED course: Vitals on arrival: BP 117/60, pulse 71, respiratory rate 18, temp 97.8, saturating at 97% on 1.5 L nasal cannula. Notable labs: Hemoglobin 9.1, hematocrit 28.2, MCV 102, creatinine 3.8, BNP 432. ABG showed a pH of 7.41, pCO2 of 50, pO2 94, HCO3 of 31. Imaging: Chest x-ray showed extensive right lung pneumonia, mild associated heart failure. EKG shows sinus rhythm with a rate of 69. Head CT negative. Chest CT showed dense opacity in the right upper lobe most consistent with pneumonic consolidation, there is a right base pneumonia, mild heart failure. In the ED, the patient was placed on supplemental oxygen and given a dose of azithromycin, hydrocodone, morphine, ceftriaxone, and albuterol treatment, and started on a sodium chloride drip at 50 mL/h. Hospital Course: Upon admission to the hospital, neurology was consulted.? Started on rifampin 300 mg p.o. twice daily, azithromycin 500 mg IV daily, ceftriaxone 1 g IV daily.? Continued his home medication Eliquis 5 mg p.o. daily, amiodarone 200 mg p.o. twice daily, carvedilol 6.25 mg p.o. twice daily. ??Per caregiver, he desaturated to 83% oxygen on room air at the rehab center. He was put on nasal cannula and titrated supplemental oxygen to saturation of 97%. Blood culture was negative for 48hrs x2.? Patient was counseled on cessation of [place] as this medication has likely contributed to lower his respiratory drive at the SNF, causing hypoxia.? Patient continues to adamantly reject MRI for his lower back pain.? Patient has been discharged after dialysis session on 04/04. Patient was positive for hepatitis C. Advised patient to follow up outpatient upon discharge Instructions: Stop taking hydrocodone for breakthrough pain and instead ask your PCP to refer you to a pain specialist and take [id number] pain medication such as Tylenol instead Continue IV antibiotic regimen with dialysis session, cefazolin 2 g with dialysis along with the rifampin 300 mg by mouth twice a day until 06/03/2025 Outpatient follow up hepatitis panel. Follow up with PCP. Please continue all other home medications Continue going to all dialysis sessions as scheduled Please follow-up with your PCP within 1 week of discharge or follow-up at the [facility] [address] [place], [place] [id number] If your symptoms worsen or if you develop new shortness of breath, chest pain, severe headache or loss of consciousness - please come back to the ED immediately #Acute Encephalopathy, resolved #Acute Hypoxic Respiratory Failure #Pneumonia (Right Upper and Lower Lobes) #History of Bacteremia (possible CRBSI, on chronic rifampin) #Hx of Paroxysmal A-fib, rate controlled #ESRD on dialysis #Hepatitis C #Chronic back pain #Anxiety #Hyperlipidemia Assessment and plan discussed with my attending physician Dr. Melo and Dr. Adkins (PGY-2) Dr. Miles (PGY-1) - Internal medicine resident Attending Provider Attestation/Addendum I have examined the patient, reviewed labs and imaging findings, discussed the case with the resident(s), and reviewed entered orders. I agree with the plan of care as outlined in this note. Time Spent: [address] Lorie MD
--- NOTE | 2025-04-07 23:25 | PD.VPROG1 ---
Telemedicine visit statement This visit was conducted with the use of phone was obtained on 04/07/25 Documentation for date of: 04/07/25 Subjective Subjective Interval history: Patient is in MedSurg, no new symptoms reported Virtual exam Vital Signs Temp Pulse Resp BP Pulse Ox O2 Del Method O2 Flow Rate 97.7 F 78 18 137/77 H 98 Room Air 7 04/07/25 12:00 04/07/25 12:04 04/07/25 12:04 04/07/25 12:00 04/07/25 12:04 04/07/25 12:00 04/06/25 11:46 Objective Labs 04/07/25 04:43 04/07/25 04:43 Labs: Laboratory Results - last 24 hr 04/07/25 04:43 WBC 6.1 RBC 2.80 L Hgb 9.3 L Hct 29.2 L MCV 104 H MCH 33.2 MCHC 31.8 RDW Std Deviation 59.9 H Plt Count 124 L Neut % (Auto) 66 Lymph % (Auto) 19 [place] % (Auto) 9 Eos % (Auto) 4 Baso % (Auto) 1 Neut # (Auto) 4.0 Lymph # (Auto) 1.2 [place] # (Auto) 0.6 Eos # (Auto) 0.3 Baso # (Auto) 0.1 Immature Gran # (Auto) 0.03 H Absolute Nucleated RBC 0.00 Immature Gran % 1 H Nucleated RBC % 0 Sodium 141 Potassium 3.7 Chloride 102 Carbon Dioxide 27.2 Anion Gap 12 BUN 19 Creatinine 4.4 H* D Estim Creat Clear Calc 16.4 L eGFR 14 L* BUN/Creatinine Ratio 4 L Glucose 96 Calculated Osmolality 283 Calcium 9.1 Corrected Calcium 9.7 Phosphorus 3.5 Magnesium 2.0 Total Bilirubin 0.8 AST 50 H ALT 8 L Alkaline Phosphatase 54 Total Protein 7.0 Albumin 3.3 L Globulin 3.7 H Albumin/Globulin Ratio 0.9 L ABG Interpretation ABG results: 04/01/25 04/01/25 04/03/25 18:20 23:33 17:40 ABG pH 7.41 7.43 ABG pCO2 50 H 40 D ABG pO2 94 89 ABG HCO3 31 H 26 ABG O2 Saturation 98 98 ABG Base Excess 6 H 2 VBG pH 7.46 VBG pCO2 48 VBG pO2 28 VBG Base Excess 9 H Assessment & Plan Problem List (1) Altered mental status: Status: Acute Assessment and plan: Secondary to metabolic encephalopathy from newly detected pneumonia from chest x-ray and CT. His mental status is improved significantly and is back to baseline. Hypertension: Continue with lisinopril Atrial fibrillation : Continue with amiodarone and carvedilol for rate control and Eliquis for embolism prevention end-stage renal disease on dialysis: Continue with maintenance hemodialysis Restless leg syndrome: Continue with ropinirole Stable for discharge.
== END 2025-04-07 14:10 | disposition skilled nursing facility (03) | DRG 139 ==
LOC: SERX 18:03 → S2NX 04-03 07:55 → SERHOLD 04-04 05:46 → S2NX 04-05 08:58 → S3SX 04-06 09:52
PROVIDERS: Internal Medicine; Admitting Provider Student in an Organized Health Care Education/Training Program; Emergency Provider Family Medicine; Visit Provider Student in an Organized Health Care Education/Training Program
DX: J18.9 Pneumonia, unspecified organism (principal); G93.41 Metabolic encephalopathy; I48.0 Paroxysmal atrial fibrillation; I13.2 Hypertensive heart and chronic kidney disease with heart failure and with stage 5 chronic kidney disease, or end stage renal disease; I50.9 Heart failure, unspecified; M54.50 Low back pain, unspecified; G89.29 Other chronic pain; J96.01 Acute respiratory failure with hypoxia; N18.6 End stage renal disease; F41.9 Anxiety disorder, unspecified; E78.5 Hyperlipidemia, unspecified; G25.81 Restless legs syndrome; B19.20 Unspecified viral hepatitis C without hepatic coma; Z87.891 Personal history of nicotine dependence; I25.10 Atherosclerotic heart disease of native coronary artery without angina pectoris; H57.04 Mydriasis; Z99.2 Dependence on renal dialysis; E83.39 Other disorders of phosphorus metabolism; Z86.73 Personal history of transient ischemic attack (TIA), and cerebral infarction without residual deficits; Z79.01 Long term (current) use of anticoagulants; F32.A Depression, unspecified; Z79.899 Other long term (current) drug therapy
CPT/HCPCS: 36415; 36600; 70450; 71045; 71250; 80053; 80061; 80074; 80307; 80320; 82140; 82803; 83735; 83880; 84100; 84484; 85025; 85610; 85730; 86331; 86635; 86703; 86706; 87040; 87811; 93005; 93225; 94640; 94664; 94762; 96365; 96375; 97162; 99285; A9270; J0456; J0696; J1643; J2270; J2405; J3490; J7030; J7050; Q5105; G0480